=== PATIENT | male | born 1960 | race Caucasian/White ===

== ENCOUNTER → 2018-07-04 15:40 | Outpatient (REF) | payer BC, SELFPAY | LOC: LAB 15:40 | PROVIDERS: Family Provider Family Medicine; Visit Provider Family Medicine | DX: R05 Cough (principal); R50.9 Fever, unspecified | CPT/HCPCS: 87400 ==

== ENCOUNTER → 2018-08-08 09:07 | Outpatient (CLI) | payer BC, SELFPAY ==
--- NOTE | 2018-08-19 15:25 | PM.PFT.1 ---
Pulmonary Function Test Referral & Results Date Patient Seen: 08/08/18 Requesting provider: Jameson Olmedo Indication: Dyspnea upon exertion Results: The spirometry demonstrates an FVC of 3.18 L which is 65% of predicted. The FEV1 was measured at 2.47 L which is 66% of predicted. The FEV1/FVC ratio was 78 which is 102% of predicted. Following the administration of bronchodilator there was at 37% improvement in FEF 25-75%. Lung volumes show an SVC of 3.42 L which is 70% of predicted. The diffusing capacity was measured at 21.24 which is 64% of predicted. No hemoglobin value was provided, so no correction for potential anemia could be made, if appropriate. The maximum voluntary ventilation was normal Interpretation: This study demonstrates moderate obstructive lung disease based our reduction in FEV1. There is some evidence of benefit following bronchodilator based on improvement in FEF 25-75% as above. There is a mild reduction in lung volumes suggesting minimal restrictive lung disease There is also a more notable reduction in diffusing capacity suggesting disease at the capillary alveolar level Compared to PFTs performed in April 2015, current spirometry shows a further decline in lung function with reduction in FEV1 and total lung volumes There is also reduction in diffusing capacity compared to previous study Clinical correlation suggested
== END ==
PROVIDERS: Family Provider Family Medicine; PCP Family Medicine; Visit Provider Family Medicine
DX: R06.00 Dyspnea, unspecified (principal)
CPT/HCPCS: 94060; 94726; 94729

== ENCOUNTER → 2019-01-14 10:44 | Outpatient (CLI) | payer BC, SELFPAY ==
--- NOTE | 2019-01-14 10:47 | DI.RAD.S_ITS ---
PROCEDURE: XR CHEST 2V INDICATIONS: history of pnuemonia TECHNIQUE: 2 views of the chest were acquired. COMPARISON: [facility], CHEST 2 VIEW, 05/14/2016, 15:48. [facility], CHEST 2 VIEW, 05/05/2016, 17:17. FINDINGS: Surgical changes and devices: None. Lungs and pleura: Lungs are clear. No pleural effusions or pneumothorax. Mediastinum: Mediastinal contours are normal. Heart size is normal. Bones and chest wall: No new suspicious bony abnormalities and prominent convex rightward scoliosis is again noted.. Soft tissues appear unremarkable. IMPRESSION: Resolution of prior subpulmonic right pleural effusion present in 2017, no pneumonia or pleural effusion found. Chronic prominent convex right scoliosis again noted, equivalent to the prior studies. Dictated by: Jorge L Ramirez M.D. on 01/14/2019 at 11:19 Approved by: Jorge L Ramirez M.D. on 01/14/2019 at 11:20
== END ==
PROVIDERS: Family Provider Family Medicine; PCP Family Medicine; Visit Provider Nurse Practitioner
DX: M41.9 Scoliosis, unspecified (principal); Z87.01 Personal history of pneumonia (recurrent)
CPT/HCPCS: 71046

== ENCOUNTER → 2019-04-10 12:39 | Outpatient (CLI) | payer BC, SELFPAY ==
--- NOTE | 2019-04-10 | DI.RAD.S_ITS ---
PROCEDURE: XR CHEST 2V INDICATIONS: CHEST PAIN/BACK PAIN TECHNIQUE: 2 views of the chest were acquired. COMPARISON: [facility], CR, XR CHEST 2V, 01/14/2019, 10:45. FINDINGS: Surgical changes and devices: None. Lungs and pleura: Lungs are clear. No pleural effusions or pneumothorax. Mediastinum: Mediastinal contours are normal. Heart size is normal. Bones and chest wall: No suspicious bony abnormalities. Scoliosis and discogenic changes.. Soft tissues appear unremarkable. IMPRESSION: No acute disease or interval change Dictated by: Alexis Sorensen M.D. on 04/10/2019 at 14:12 Approved by: Alexis Sorensen M.D. on 04/10/2019 at 14:12
== END ==
PROVIDERS: Family Provider Family Medicine; PCP Family Medicine; Visit Provider Family Medicine
DX: R07.9 Chest pain, unspecified (principal); M54.9 Dorsalgia, unspecified
CPT/HCPCS: 71046

== ENCOUNTER 2019-08-09 12:48 | Emergency (ER) | payer BC, SELFPAY ==
[2019-08-09 12:59] VITALS: BP 156/79; PULSE 55; RESP 18; TEMP 36.8; O2SAT 98
--- NOTE | 2019-08-09 13:09 | DI.RAD.S_ITS ---
PROCEDURE: XR KNEE LT 3V INDICATIONS: pain, erythema TECHNIQUE: 3 views of the knee were acquired. COMPARISON: None. FINDINGS: Bones: No fractures or dislocations. No suspicious bony lesions. There is a moderate-sized enthesophyte at the quadriceps tendon insertion. Mild degenerative changes of the knee are present. Soft tissues: No joint effusion. No suspicious soft tissue calcifications. Prepatellar soft tissue/skin thickening is evident. IMPRESSION: 1. No acute left knee fractures. 2. Skin thickening in the prepatellar region. 3. No joint effusion. Dictated by: Artur Wilder M.D. on 08/09/2019 at 12:47 Approved by: Artur Wilder M.D. on 08/09/2019 at 12:48
--- NOTE | 2019-08-09 13:17 | ED_ITS ---
HPI - Extremity Injury (Lower) <ZENOBIA Faulkner - Last Filed: 08/09/19 14:39> General Chief Complaint: Extremity Injury, Lower Stated Complaint: left knee swelling since yesturday Time Seen by Provider: 08/09/19 13:00 Source: patient Mode of arrival: Ambulatory Limitations: no limitations History of Present Illness HPI Narrative: The patient is a 59-year-old male nonsmoker with history of chronic pain and scoliosis who presents with a chief complaint of left knee pain. It started yesterday. He states he has been working a lot on his kitchen, so kneeling on the floor for the past several days. He denies any fevers nausea vomiting or diarrhea. He has taken ibuprofen once. He states that his pain ?really isn't that bad.He states that his chronic back pain is much worse. He denies any known injuries. He notes that he has slight redness on his knee yesterday. He states he has full range of motion. He does state that he had to be admitted for IV antibiotics related to a MRSA infection approximately 20 years ago. He states he has taken methadone and hydrocodone so far today for his chronic pain. He has not applied ice to his knee. Related Data Home Medications Medication Instructions Recorded Confirmed fluticasone propionate 1 spray INTRANASAL #0 04/22/16 01/14/19 Respironics BIPAP AutoSV Advanced #1 ea 05/13/18 01/14/19 Previous Rx's Medication Instructions Recorded cephalexin 500 mg PO TID 7 Days #21 cap 08/09/19 doxycycline hyclate 100 mg PO BID #14 tab 08/09/19 Allergies Allergy/AdvReac Type Severity Reaction Status Date / Time bupropion [From WELLBUTRIN] Allergy Mild rash/nausea Unverified 01/14/19 11:13 Uwdmqxi-Ewr-Onf Reductase AdvReac Unknown FLORETNINO Unverified 01/14/19 11:13 Inhibitor HORSES IN [[id number] REDUCTASE LEGS INHIBITOR] Review of Systems <ZENOBIA Faulkner - Last Filed: 08/09/19 14:39> Review of Systems Narrative: GENERAL: Denies chills, fatigue, malaise, fever, sweats. HEENT: Denies sinus pain, ear pain, sore throat, difficulty swallowing, dizziness. RESPIRATORY: Denies dyspnea, cough, wheezing, hemoptysis, sputum. CARDIOVASCULAR: Denies chest pain, palpitations, orthopnea, edema, GASTROINTESTINAL: Denies nausea, vomiting, abdominal pain, diarrhea, constipation, melena. : Denies dysuria, frequency, incontinence, hematuria, urinary retention. MUSCULOSKELETAL: See HPI SKIN: See HPI NEUROLOGIC: Denies weakness, headache, numbness, change in speech, confusion, seizures, incoordination. PSYCHIATRIC: No concerning psychosocial issues. 12 point review of systems is negative except for those stated above Patient History <ZENOBIA Faulkner - Last Filed: 08/09/19 14:39> Medical History Aspiration pneumonia due to gastric secretions (Acute) Chronic pain (Chronic) Obstructive sleep apnea of adult (Chronic) Scoliosis deformity of spine (Chronic) Shortness of breath (Chronic) Snoring (Inactive) Social History marital status: details: raghu Velez, lives in [place] household members: spouse lives independently: Yes caregiver/support person: No housing: house education level: college occupational status: employed current occupational exposures/hazards: Yes (asbestos, silica, other particulates) 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 Normocephalic. No temporal or scalp tenderness. EYES: Pupils equal round and reactive. Extraocular motions intact. No scleral icterus. No injection or drainage. ENT: Nose without bleeding, purulent drainage or septal hematoma. Throat without erythema, tonsillar hypertrophy or exudate. Uvula midline. Airway patent. NECK: Trachea midline. No JVD or lymphadenopathy. Supple, nontender, no meningeal signs. CARDIOVASCULAR: Regular rate and rhythm RESPIRATORY: No cough. No increased respiratory effort. No accessory muscle use. EXTREMITIES: Full range of motion noted left knee. Slight swelling noted prepatellar area with 6 x 6 cm erythema with no palpable bursa or fluctuance. Abrasion noted over prepatellar area of left knee. Positive pedal pulses bilaterally. BACK: Nontender without deformity or crepitance. No flank tenderness. NEURO: AOx3. SKIN: See extremity exam Initial Vital Signs Initial Vital Signs: Vital Signs Temperature 98.3 F 08/09/19 12:59 Pulse Rate 55 L 08/09/19 12:59 Respiratory Rate 18 08/09/19 12:59 Blood Pressure 156/79 H 08/09/19 12:59 Pulse Oximetry 98 08/09/19 12:59 <Raiza Martinez DO - Last Filed: 08/09/19 18:30> Initial Vital Signs Initial Vital Signs: Vital Signs Temperature 98.3 F 08/09/19 12:59 Pulse Rate 55 L 08/09/19 12:59 Respiratory Rate 18 08/09/19 12:59 Blood Pressure 156/79 H 08/09/19 12:59 Pulse Oximetry 98 08/09/19 12:59 Course <ZENOBIA Faulkner - Last Filed: 08/09/19 14:39> Orders Ordered: ED Orders 08/09/19 13:09 XR knee LT 3V Stat Vital Signs Vital signs: Vital Signs - 8 hr 08/09/19 12:59 08/09/19 14:30 Temperature 98.3 F Pulse Rate 55 L 50 L Respiratory Rate 18 12 Blood Pressure 156/79 H 150/76 H Pulse Oximetry 98 100 <Raiza Martinez DO - Last Filed: 08/09/19 18:30> Orders Ordered: ED Orders 08/09/19 13:09 XR knee LT 3V Stat Vital Signs Vital signs: Vital Signs - 8 hr 08/09/19 12:59 08/09/19 14:30 Temperature 98.3 F Pulse Rate 55 L 50 L Respiratory Rate 18 12 Blood Pressure 156/79 H 150/76 H Pulse Oximetry 98 100 MDM - Extremity Injury (Lower) <ZENOBIA Faulkner - Last Filed: 08/09/19 14:39> Differential Diagnosis Differential diagnosis: Likely acute internal derangement of knee and other Imaging Data Extremity x-ray #1: Radiologist's Impression: [address] [place] [id number] XRay Report Signed Patient: Cole Coats [facility]#: [id number] : 1960Acct:[id number] Age/Sex: 59 / MDate of Service: 08/09/19 Loc: ED Accession Number: [id number] Procedure: XR knee LT 3V Ordering Provider: Raiza Mendoza PROCEDURE: XR KNEE LT 3V INDICATIONS: pain, erythema TECHNIQUE: 3 views of the knee were acquired. COMPARISON: None. FINDINGS: Bones: No fractures or dislocations. No suspicious bony lesions. There is a moderate-sized enthesophyte at the quadriceps tendon insertion. Mild degenerative changes of the knee are present. Soft tissues: No joint effusion. No suspicious soft tissue calcifications. Prepatellar soft tissue/skin thickening is evident. IMPRESSION: 1. No acute left knee fractures. 2. Skin thickening in the prepatellar region. 3. No joint effusion. Dictated by: Artur Wilder M.D. on 08/09/2019 at 12:47 Approved by: Artur Wilder M.D. on 08/09/2019 at 12:48 [facility] Narrative Medical decision making narrative: The patient is a 59-year-old male who presents with a chief complaint of knee pain. He has erythema on exam, as well as dry cracked knees. Full range of motion noted on his knee. Will treat for cellulitis at this point time. He is nontoxic., afebrile overall well appearing. Given his MRSA history, will place him on doxycycline as well as cephalexin. Encourage taking it with probiotic or yogurt. Encouraged following up with primary care provider as well as coming back to the emergency department for any acute concerns such as signs of systemic illness. Patient have no questions or concerns upon discharge and state understanding of return precautions as well as follow-up care. Discharge Plan Departure Patient Disposition: Home Clinical Impression: Cellulitis of lower extremity Qualifiers: Laterality: left Qualified Code(s): L03.116 - Cellulitis of left lower limb Discharge Date/Time: 08/09/19 14:31 Instructions: DI for Cellulitis -- Adult, How To Perform RICE (Rest, Ice, Compress, Elevate) Activity Restrictions/Additional Instructions: Thank you for trusting us with your care today. As discussed, your exam and films are concerning for skin infection called cellulitis I sent prescriptions of 2 different antibiotics to [facility]. Please take this with probiotic or yogurt. We are being more aggressive with her antibiotic therapy given your history. Please follow-up with primary care provider in the next few days. Please come back to the emergency department for any acute concerns such as signs of systemic illness including fever etcetera Please use rest ice compression elevation on your knee. I hope you feel better soon. Prescriptions: New doxycycline hyclate 100 mg tablet 100 mg PO BID Qty: 14 RF: 0 cephalexin 500 mg capsule 500 mg PO TID 7 Days Qty: 21 RF: 0 No Action fluticasone propionate 16 GM spray,suspension 1 spray Intranasal Qty: 0 RF: 0 (DME) Respironics BIPAP AutoSV Advanced Qty: 1 RF: 0 Referrals: Jameson Olmedo MD [Primary Care Provider] -
[2019-08-09 14:30] VITALS: BP 150/76; PULSE 50; RESP 12; O2SAT 100
== END 2019-08-09 14:31 | disposition home or self-care (01) ==
PROVIDERS: Emergency Provider Nurse Practitioner Family; Family Provider Family Medicine; PCP Family Medicine
DX: L03.116 Cellulitis of left lower limb (principal)
CPT/HCPCS: 73562; 99283

== ENCOUNTER → 2019-11-25 08:51 | Outpatient (CLI) | payer BC, SELFPAY ==
[2019-11-26 04:10] LABS: COVID19 Sendout Not Detected (Not Detect)
== END ==
PROVIDERS: Family Provider Family Medicine; PCP Family Medicine; Visit Provider Physician Assistant
DX: Z11.59 Encounter for screening for other viral diseases (principal)
CPT/HCPCS: 87635

== ENCOUNTER → 2020-03-01 07:14 | Outpatient (CLI) | payer BC, SELFPAY ==
--- NOTE | 2020-03-01 | DI.MRI.S_ITS ---
PROCEDURE: MR LUMBAR SPINE WO CON INDICATIONS: Low back pain TECHNIQUE: Noncontrast sagittal T1 spin echo and T2 fast echo, sagittal STIR, axial T1 and T2 fast spin echo through the lumbar spine. In cases with scoliosis, additional coronal T2 fast spin echo may be performed. COMPARISON: None. FINDINGS: Image quality: Excellent. Alignment and Curvature: There is prominent levoconvex this lumbar scoliosis, approximately 50?. Bone Marrow: Marrow is of normal overall signal. No acute vertebral body compression fractures. Spinal Cord: Conus medullaris terminates at the L1 level. Visualized cord demonstrates normal signal and size. Paraspinous Soft Tissues: No paravertebral masses. T12-L1: Moderate loss of disc height is seen on the right side. Loss of disc signal is seen. Mild disc bulge is seen, with a central/left disc protrusion. Moderate bilateral neural foraminal narrowing is seen. Mild central canal narrowing is seen. L1-L2: Moderate loss of disc height is seen on the right side. There is loss of disc signal. Mild generalized disc bulge is seen. There is moderate right-sided and mild left-sided facet hypertrophy seen. There is moderate right-sided and no left-sided neural foraminal narrowing seen. Mild central canal narrowing is seen. L2-L3: There is [id number] loss of disc height and disc signal seen on the right side. Moderate disc bulge is seen, which is eccentric to the right side. There is moderate right-sided and mild left-sided facet hypertrophy. There is moderate right-sided and no left-sided neural foraminal narrowing. Moderate central canal narrowing is seen. L3-L4: Moderate loss of disc height is seen on the right side. Moderate generalized disc bulge is seen. Moderate facet joint hypertrophy is seen. Moderate bilateral neural foraminal narrowing is seen. Moderate central canal narrowing is seen. L4-L5: Moderate loss of disc height is seen. Loss of disc signal is seen. Moderate disc bulge is seen, with a central disc protrusion. At least moderate facet hypertrophy is seen. There is moderate to severe bilateral neural foraminal narrowing seen. There is a degree of compression seen upon the exiting nerve roots. Moderate to severe central canal narrowing is seen. L5-S1: The disc height and disc signal are relatively well preserved. Mild generalized disc bulge is seen. Moderate facet joint hypertrophy is seen. There is mild left-sided and no right-sided neural foraminal narrowing seen. No significant central canal narrowing is seen. IMPRESSION: Prominent levoconvex lumbar scoliosis, with multiple levels of degenerative change, which are overall most prominent at L4-5. Dictated by: Matthew Johnson M.D. on 03/01/2020 at 9:19 Approved by: Matthew Johnson M.D. on 03/01/2020 at 9:26
== END ==
PROVIDERS: Family Provider Family Medicine; PCP Family Medicine; Referring Provider Family Medicine; Visit Provider Family Medicine
DX: M54.5 Low back pain (principal); M41.86 Other forms of scoliosis, lumbar region; M47.816 Spondylosis without myelopathy or radiculopathy, lumbar region; M47.817 Spondylosis without myelopathy or radiculopathy, lumbosacral region
CPT/HCPCS: 72148

== ENCOUNTER → 2020-03-10 14:29 | Outpatient (CLI) | payer BC, SELFPAY ==
--- NOTE | 2020-03-10 | DI.RAD.S_ITS ---
PROCEDURE: XR T AND L SPINE 4 TO 5 VIEWS INDICATIONS: scoliosis TECHNIQUE: 2 views acquired of the thoracolumbar spine. COMPARISON: [facility], , T AND L SPINE 2 TO 3 VIEWS, 09/14/2015, 15:56. FINDINGS: Bones: No acute fractures or dislocations. Visualized inferior ribs appear intact. No suspicious bony lesions. Soft tissues: No suspicious soft tissue calcifications. IMPRESSION: Stable appearance of prominent convex leftward scoliosis at the lumbosacral spine and compensatory convex rightward scoliosis at the low thoracic spine, as was previously the case in September of 2015. There has been no appreciable worsening in the degree of scoliosis present. No trauma is found. Estimated convex rightward scoliosis is 55 degrees and convex leftward scoliosis more inferiorly is 36 degrees. Dictated by: Jorge L Ramirez M.D. on 03/10/2020 at 15:51 Approved by: Jorge L Ramirez M.D. on 03/10/2020 at 15:52
== END ==
PROVIDERS: Family Provider Family Medicine; PCP Family Medicine
DX: M41.86 Other forms of scoliosis, lumbar region; M41.84 Other forms of scoliosis, thoracic region
CPT/HCPCS: 72083

== ENCOUNTER → 2020-06-29 14:54 | Outpatient (CLI) | payer BC, SELFPAY ==
[2020-06-29 15:22] LABS: Prothrombin Time 11.5 SECONDS (10.1-12.7)
[2020-06-29 15:25] LABS: PTT Partial Thromboplastin Tim 28 SECONDS (26.4-36.2)
== END ==
PROVIDERS: Family Provider Family Medicine; PCP Family Medicine; Referring Provider Orthopaedic Surgery; Visit Provider Orthopaedic Surgery
DX: M41.9 Scoliosis, unspecified (principal)
CPT/HCPCS: 36415; 85610; 85730

== ENCOUNTER → 2020-08-10 11:19 | Outpatient (CLI) | payer BC, SELFPAY ==
--- NOTE | 2020-08-10 | DI.US.S_ITS ---
PROCEDURE: US PERIPH VENOUS LOW EXTREM LT INDICATIONS: LEFT LEG SWELLING. TECHNIQUE: Real-time imaging, as well as color and pulse Doppler interrogation, were performed of the lower extremity deep veins from the inguinal ligament to the popliteal fossa. COMPARISON: None. FINDINGS: The common femoral, femoral and popliteal veins are normally compressible, and free of intraluminal thrombus. Color and pulse Doppler demonstrate normal phasic intraluminal flow. There is normal augmentation response to distal compression maneuver. IMPRESSION: No evidence of DVT in visualized left lower extremity veins. Dictated by: Kristian Hernandez M.D. on 08/10/2020 at 12:06 Approved by: Kristian Hernandez M.D. on 08/10/2020 at 12:08
== END ==
PROVIDERS: Family Provider Family Medicine; PCP Family Medicine; Referring Provider Family Medicine; Visit Provider Family Medicine
DX: M79.89 Other specified soft tissue disorders (principal)
CPT/HCPCS: 93971

== ENCOUNTER → 2020-09-08 10:23 | Outpatient (CLI) | payer BC, SELFPAY ==
--- NOTE | 2020-09-08 | DI.RAD.S_ITS ---
PROCEDURE: XR T AND L SPINE 4 TO 5 VIEWS INDICATIONS: Other acute postprocedural pain TECHNIQUE: 2 views acquired of the thoracolumbar spine. COMPARISON: [facility], , XR T AND L SPINE 4 TO 5 VIEWS, 03/10/2020, 14:46. FINDINGS: Bones: Postsurgical changes compatible with T3-sacral posterior fusion. Orthopedic hardware is intact. No lucencies at the bone hardware interface. S shaped thoracolumbar spine scoliosis noted with reduced thoracic and lumbar spine curvature is. Soft tissues: No suspicious soft tissue calcifications. IMPRESSION: Status post T3-sacral posterior fusion. Dictated by: Shadia Gallardo MD, PhD on 09/08/2020 at 17:35 Approved by: Shadia Gallardo MD, PhD on 09/08/2020 at 17:43
== END ==
PROVIDERS: Family Provider Family Medicine; PCP Family Medicine; Referring Provider Orthopaedic Surgery; Visit Provider Orthopaedic Surgery
DX: G89.18 Other acute postprocedural pain (principal)
CPT/HCPCS: 72083

== ENCOUNTER → 2020-09-15 15:31 | Outpatient (CLI) | payer BC, SELFPAY ==
--- NOTE | 2020-09-15 15:42 | DI.RAD.S_ITS ---
PROCEDURE: XR T AND L SPINE 4 TO 5 VIEWS INDICATIONS: tripped and fell into a wall hit his back TECHNIQUE: 2 views acquired of the thoracolumbar spine. COMPARISON: [facility], , XR T AND L SPINE 4 TO 5 VIEWS, 09/08/2020, 10:26. FINDINGS: Bones: The patient is status post pedicular screw and grnat fixation of the thoracic, lumbar, and sacral spine. There is residual S-shaped scoliosis of the thoracic spine. No hardware fracture is identified. The right 9th and 10th ribs are fractured. There is increased stool on the right consistent with constipation. The visualized pelvis is intact without fracture. No fractures of the visualized femoral heads. Soft tissues: No suspicious soft tissue calcifications. Status post cholecystectomy. IMPRESSION: 1. Right 9th and 10th rib fractures. 2. Postoperative changes of the thoracic and lumbar spine. 3. Constipation. Dictated by: Matt Lincoln M.D. on 09/15/2020 at 16:31 Approved by: Matt Lincoln M.D. on 09/15/2020 at 16:35
== END ==
PROVIDERS: Family Provider Family Medicine; PCP Family Medicine
DX: S22.41XA Multiple fractures of ribs, right side, initial encounter for closed fracture (principal); M54.16 Radiculopathy, lumbar region; K59.00 Constipation, unspecified; W01.198A Fall on same level from slipping, tripping and stumbling with subsequent striking against other object, initial encounter; Z98.1 Arthrodesis status
CPT/HCPCS: 72083

== ENCOUNTER → 2020-12-13 18:21 | Outpatient (CLI) | payer BC, SELFPAY ==
[2020-12-13 19:37] LABS: COVID19 -Nasal RAPID Negative (Negative)
== END ==
PROVIDERS: Family Provider Family Medicine; PCP Family Medicine; Referring Provider Physician Assistant; Visit Provider Physician Assistant
DX: Z20.822 Contact with and (suspected) exposure to COVID-19 (principal)
CPT/HCPCS: 87635

== ENCOUNTER 2021-01-13 17:30 | Emergency (ER) | payer BC, SELFPAY ==
--- NOTE | 2021-01-13 18:02 | DI.RAD.S_ITS ---
PROCEDURE: XR FINGER RT MIN 2V INDICATIONS: pt got his finger stuck in the lamp shade joiner, 3rd digit TECHNIQUE: AP hand, 2 views of the there finger(s) acquired. COMPARISON: None. FINDINGS: Bones: No fractures or dislocations. No suspicious bony lesions. Soft tissues: No suspicious soft tissue calcifications. IMPRESSION: No acute fracture. No osseous lesion. If symptoms and/or clinical suspicion for pathology persist, further assessment with repeat, or advanced imaging (e.g., CT, MRI, or bone scan) may be helpful for further assessment. Dictated by: Alyssa Tom M.D. on 01/13/2021 at 18:23 Approved by: Alyssa Tom M.D. on 01/13/2021 at 18:24
[2021-01-13 18:03] VITALS: BP 138/88; PULSE 51; RESP 18; TEMP 36.7; O2SAT 97; BMI 22.9
--- NOTE | 2021-01-13 20:51 | ED.WOUNDLAC ---
HPI - Wound/Laceration General Chief Complaint: Wound/Laceration Stated Complaint: Laceration To Rt Middle Finger Time Seen by Provider: 01/13/21 20:44 Source: patient Mode of arrival: Family Vehicle Limitations: no limitations History of Present Illness HPI narrative: Patient is right handed. Injured his right middle finger at the pulp/tip. 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 No nail injury. Needs tetanus shot. Related Data Home Medications Medication Instructions Recorded Confirmed fluticasone propionate 50 1 spray INTRANASAL #0 04/22/16 01/14/19 mcg/actuation nasal spray,suspension Respironics BIPAP AutoSV Advanced #1 ea 05/13/18 01/14/19 Previous Rx's Medication Instructions Recorded doxycycline hyclate 100 mg tablet 100 mg PO BID #14 tab 08/09/19 cephalexin 500 mg capsule 500 mg PO TID #15 cap 01/13/21 Allergies Allergy/AdvReac Type Severity Reaction Status Date / Time bupropion [From WELLBUTRIN] Allergy Mild rash/nausea Verified 01/13/21 18:07 Dilfhhg-Kut-Yny Reductase AdvReac Unknown CHARLEY Verified 01/13/21 18:07 Inhibitor HORSES IN [HGKASXC-WYR-EUJ REDUCTASE LEGS INHIBITOR] Review of Systems Review of Systems Narrative: GENERAL: Denies chills, fatigue, malaise, fever, sweats. HEENT: Denies sinus pain, ear pain, sore throat RESPIRATORY: Denies dyspnea, cough CARDIOVASCULAR: Denies chest pain, palpitations GASTROINTESTINAL: Denies nausea, vomiting, abdominal pain : Denies dysuria, frequency, hematuria MUSCULOSKELETAL: denies muscle or bony pain SKIN: Denies rash, skin lesions, positive for skin injury NEUROLOGIC: Denies weakness, numbness ROS Unobtainable: All systems reviewed & are unremarkable except as noted in HPI and below Patient History Medical History Aspiration pneumonia due to gastric secretions Chronic pain Hiatal hernia Obstructive sleep apnea of adult Scoliosis deformity of spine Shortness of breath Snoring Social History marital status: details: raghu Velez, lives in [place] household members: spouse lives independently: Yes caregiver/support person: No housing: house education level: college occupational status: employed current occupational exposures/hazards: Yes (asbestos, silica, other particulates) 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 EXTREMITIES: No gross deformities. Examination right hand. There is skin avulsion at the pulp of the finger tip. No finger nail injury. Dime size skin injury in diameter. No bone or tendon injury or exposure seen. Based visualize. Bloodless field. No foreign body. Full flexion extension at the MCP PIP and PIP joints. Fingers warm soft and pink. Light touch intact to finger. NEURO: AOx4. SKIN: Warm and dry PSYCH: Not anxious, is cooperative Initial Vital Signs Initial Vital Signs: Vital Signs Temperature 98.0 F 01/13/21 18:03 Pulse Rate 51 L 01/13/21 18:03 Respiratory Rate 18 01/13/21 18:03 Blood Pressure 138/88 01/13/21 18:03 Pulse Oximetry 97 01/13/21 18:03 Course Course Course Narrative: No new issues during course of stay. Orders Ordered: Discontinued Medications Bacitracin (Bacitracin Oint 0.9 Gm Pckt) 1 applic TOP NOW ONE Stop: 01/13/21 20:52 Last Admin: 01/13/21 20:56 Dose: 1 applic Documented by: PAULA Cephalexin HCl (Cephalexin 250 Mg Capsule) 500 mg PO NOW ONE Stop: 01/13/21 20:51 Last Admin: 01/13/21 20:55 Dose: 500 mg Documented by: PAULA Diphtheria/Tetanus/Acell Pertussis (Tet,Diph,Pertuss(Acell),Vac/Pf 0.5 Ml Syringe) 0.5 ml IM .ONCE ONE Stop: 01/13/21 18:12 Last Admin: 01/13/21 20:56 Dose: 0.5 ml Documented by: PAULA Reevaluation(s) Reevaluation #1: Reviewed x-ray results with patient. Agrees with treatment plan. Agrees with tetanus shot. Time: 20:55 Vital Signs Vital signs: Vital Signs - 8 hr 01/13/21 18:03 Temperature 98.0 F Pulse Rate 51 L Respiratory Rate 18 Blood Pressure 138/88 Pulse Oximetry 97 MDM - Wound/Laceration Differential Diagnosis Differential diagnosis: Likely laceration, abrasion and avulsion of skin Imaging Data Extremity x-ray #1: Radiologist's Impression: [address] [address] XRay Report Signed Patient: Cole Coats MR#: [id number] : 1960 Acct:[id number] Age/Sex: 60 / M Date of Service: 01/13/21 Loc: ED Accession Number: [id number] ?? Procedure: XR finger RT min 2V Ordering Provider: Raiza Martinez D.O. PROCEDURE:? XR FINGER RT MIN 2V ? INDICATIONS:? pt got his finger stuck in the tmd teacher assistant, 3rd digit ? TECHNIQUE:? AP hand, 2 views of the there finger(s) acquired.? ? COMPARISON:? None. ? FINDINGS:? ? Bones:? No fractures or dislocations.? No suspicious bony lesions.? ? Soft tissues:? No suspicious soft tissue calcifications.? ? IMPRESSION:? No acute fracture. No osseous lesion. If symptoms and/or clinical suspicion for pathology persist, further assessment with repeat, or advanced imaging (e.g., CT, MRI, or bone scan) may be helpful for further assessment. ? ? Dictated by: Alyssa Tom M.D. on 01/13/2021 at 18:23 ? ? Approved by: Alyssa Tom M.D. on 01/13/2021 at 18:24 ? [facility] Narrative Medical decision making narrative: Appropriate for discharge home. Patient understands no sutures indicated. This is a skin avulsion. Very superficial. Wound care instructions given. Return precautions reviewed. Not toxic at discharge. Neurovascularly intact Discharge Plan Departure Patient Disposition: Home Clinical Impression: Avulsion of skin Instructions: DI for Minor Laceration Activity Restrictions/Additional Instructions: Clean finger wound daily with warm soap and water and then apply thin layer of topical antibiotic. Change dressing daily. See family doctor in a week for recheck. Continue antibiotic prescription filled tomorrow. Return if worsening questions or concerns Prescriptions: New cephalexin 500 mg capsule 500 mg PO TID Qty: 15 RF: 0 No Action fluticasone propionate 16 GM spray,suspension 1 spray Intranasal Qty: 0 RF: 0 doxycycline hyclate 100 mg tablet 100 mg PO BID Qty: 14 RF: 0 (DME) Respironics BIPAP AutoSV Advanced Qty: 1 RF: 0 Referrals: Jameson Olmedo MD [Primary Care Provider] -
[2021-01-13] MEDS: cephALEXin 250 MG CAPSULE 500 MG PO (20:55)
[2021-01-13] MEDS: TET,DIPH,PERTUSS(ACELL),VAC/PF 0.5 ML SYRINGE IM (20:56)
[2021-01-13] MEDS: BACITRACIN OINT 0.9 GM PCKT 1 APPLIC TOP (20:56)
[2021-01-13 21:11] VITALS: PULSE 78; O2SAT 99
== END 2021-01-13 21:11 | disposition home or self-care (01) ==
PROVIDERS: Emergency Provider Emergency Medicine; Family Provider Family Medicine; PCP Family Medicine
DX: S61.212A Laceration without foreign body of right middle finger without damage to nail, initial encounter (principal); W26.8XXA Contact with other sharp object(s), not elsewhere classified, initial encounter; Z23 Encounter for immunization
CPT/HCPCS: 73140; 90471; 99283; 99284; 90715

== ENCOUNTER → 2021-02-09 12:48 | Outpatient (CLI) | payer BC, SELFPAY ==
--- NOTE | 2021-02-09 12:52 | DI.RAD.S_ITS ---
PROCEDURE: XR ABDOMEN 1V INDICATIONS: Abdominal PAIN TECHNIQUE: One view of the abdomen acquired. COMPARISON: None. FINDINGS: Surgical changes and devices: None. Bowel: Moderate stool burden in the ascending through transverse colon. Soft tissues: No suspicious abdominal calcifications. Visualized solid organ contours appear normal in size. Bones: No suspicious bony lesions. Extensive posterior element hardware, most consistent with scoliosis surgery. IMPRESSION: Moderate stool burden in the ascending through transverse colon. Dictated by: Scott Nieto M.D. on 02/09/2021 at 14:54 Approved by: Scott Nieto M.D. on 02/09/2021 at 14:58
== END ==
PROVIDERS: Family Provider Family Medicine; PCP Family Medicine; Referring Provider Family Medicine; Visit Provider Family Medicine
DX: R10.9 Unspecified abdominal pain (principal)
CPT/HCPCS: 74018

== ENCOUNTER → 2021-05-25 12:04 | Outpatient (CLI) | payer BC, SELFPAY ==
--- NOTE | 2021-05-25 | DI.RAD.S_ITS ---
PROCEDURE: XR T AND L SPINE 4 TO 5 VIEWS INDICATIONS: scoliosis TECHNIQUE: 2 views acquired of the thoracolumbar spine. COMPARISON: [facility], CR, XR T AND L SPINE 4 TO 5 VIEWS, 09/08/2020, 10:26. [facility], CR, XR T AND L SPINE 4 TO 5 VIEWS, 09/15/2020, 15:45. FINDINGS: Bones: Extensive posterior fusion from T3 through sacrum is again seen with surgical hardware unchanged from prior study. No acute fractures or dislocations. No gross hardware loosening or failure. Moderate S-shaped scoliosis of thoracolumbar spine is again seen essentially unchanged from prior study. Visualized inferior ribs appear intact. No suspicious bony lesions. Soft tissues: No suspicious soft tissue calcifications. IMPRESSION: Stable moderate S-shaped scoliosis of thoracolumbar spine. Postfusion changes in thoracolumbar spine without gross hardware complication. No acute fracture or dislocation. Dictated by: Kristian Hernandez M.D. on 05/25/2021 at 15:52 Approved by: Kristian Hernandez M.D. on 05/25/2021 at 15:54
== END ==
LOC: LAB 12:07 → RAD 12:07
PROVIDERS: Family Provider Family Medicine; PCP Family Medicine; Referring Provider Physician Assistant; Visit Provider Physician Assistant
DX: M54.16 Radiculopathy, lumbar region (principal); M41.85 Other forms of scoliosis, thoracolumbar region; M21.379 Foot drop, unspecified foot; M51.9 Unspecified thoracic, thoracolumbar and lumbosacral intervertebral disc disorder; Z98.1 Arthrodesis status
CPT/HCPCS: 72083

== ENCOUNTER → 2021-06-12 10:35 | Outpatient (ROUT) | payer BC, SELFPAY ==
[2021-06-12 10:52] LABS: Prothrombin Time 11.2 SECONDS (10.1-12.7)
== END ==
PROVIDERS: Family Provider Family Medicine; PCP Family Medicine; Visit Provider Family Medicine
DX: M54.9 Dorsalgia, unspecified (principal)
CPT/HCPCS: 85610

== ENCOUNTER → 2021-08-12 11:02 | Outpatient (CLI) | payer BC, SELFPAY ==
--- NOTE | 2021-08-12 11:10 | DI.RAD.S_ITS ---
PROCEDURE: XR T AND L SPINE 4 TO 5 VIEWS INDICATIONS: SCOLIOSIS TECHNIQUE: 2 views acquired of the thoracolumbar spine. COMPARISON: [facility], CR, XR T AND L SPINE 4 TO 5 VIEWS, 09/08/2020, 10:26. [facility], CR, XR T AND L SPINE 4 TO 5 VIEWS, 09/15/2020, 15:45. [facility], CR, XR T AND L SPINE 4 TO 5 VIEWS, 05/25/2021, 12:19. FINDINGS: Bones: No acute fractures or dislocations. There is S shaped scoliosis. Extensive postsurgical changes with spinal fusion at T2 through S1. Possible fracture of the left fusion grant at the level of L1. There are, however, motion artifacts at this level. There is mild anterior wedge deformity of T4, unchanged. Fusion of SI joints bilaterally. Visualized inferior ribs appear intact. No suspicious bony lesions. Soft tissues: No suspicious soft tissue calcifications. IMPRESSION: 1. Question of fracture of the left side surgical grant at the level of L1. Because of presence of motion artifacts, the diagnosis is not definitive. Recommend a repeat examination of the lumbar spine if clinically indicated. 2. Severe scoliosis and extensive postsurgical changes in thoracic and lumbar spine. Dictated by: Paige Lu M.D. on 08/12/2021 at 13:26 Approved by: Paige Lu M.D. on 08/12/2021 at 13:36
== END ==
PROVIDERS: Family Provider Family Medicine; PCP Family Medicine; Referring Provider Orthopaedic Surgery; Visit Provider Orthopaedic Surgery
DX: M41.9 Scoliosis, unspecified (principal); Z98.1 Arthrodesis status
CPT/HCPCS: 72083

== ENCOUNTER → 2022-02-20 12:28 | Outpatient (CLI) | payer BC, SELFPAY ==
--- NOTE | 2022-02-20 12:30 | DI.RAD.S_ITS ---
PROCEDURE: XR ACUTE ABDOMEN SERIES INDICATIONS: NAUSEA TECHNIQUE: One view chest and two views of the abdomen were acquired. COMPARISON: None. FINDINGS: Surgical changes and devices: Knwecqie-pzipcx-nyhzjx spine fixation hardware. Cholecystectomy clips. Chest: Lungs are clear. Heart size is normal. No pleural effusions. No pneumoperitoneum. Abdomen: Bowel gas pattern is nonspecific No suspicious calcifications. Visualized solid organ contours appear normal. Bones: No suspicious bony lesions. S shaped scoliosis of the thoracolumbar spine. IMPRESSION: Nonspecific bowel gas pattern without definite evidence of obstruction. If patient's symptoms persist or worsen, consider CT scan of the abdomen pelvis for additional evaluation. Dictated by: Shadia Gallardo MD, PhD on 02/20/2022 at 14:00 Approved by: Shadia Gallardo MD, PhD on 02/20/2022 at 14:01
== END ==
PROVIDERS: Family Provider Family Medicine; PCP Family Medicine; Referring Provider Family Medicine; Visit Provider Family Medicine
DX: R11.0 Nausea
CPT/HCPCS: 74022

== ENCOUNTER → 2022-03-30 13:57 | Outpatient (CLI) | payer BC, SELFPAY ==
--- NOTE | 2022-03-30 13:59 | DI.RAD.S_ITS ---
PROCEDURE: XR LUMBAR SPINE 2-3V INDICATIONS: Back Pain TECHNIQUE: 3 views of the lumbar spine were acquired. COMPARISON: None. FINDINGS: Bones: 5 ffv-qop-etonyza vertebrae are present. Extensive thoracolumbar/lumbosacral fusion hardware with no evidence of hardware failure or loosening. Rotatory levocurvature of the lumbar spine. No vertebral body compression fractures. No suspicious bony lesions. Soft tissues: Overlying bowel gas pattern is normal. No suspicious soft tissue calcifications. IMPRESSION: Expected appearance of extensive orthopedic hardware. No evidence of acute bony abnormality. Dictated by: Saturnino Shirley M.D. on 04/02/2022 at 8:37 Approved by: Saturnino Shirley M.D. on 04/02/2022 at 8:38
== END ==
PROVIDERS: Family Provider Family Medicine; PCP Family Medicine; Referring Provider Family Medicine; Visit Provider Family Medicine
DX: M54.9 Dorsalgia, unspecified (principal); Z98.1 Arthrodesis status
CPT/HCPCS: 72100

== ENCOUNTER → 2022-04-14 14:57 | Outpatient (CLI) | payer BC, SELFPAY ==
--- NOTE | 2022-04-14 14:58 | DI.RAD.S_ITS ---
PROCEDURE: XR CHEST 2V INDICATIONS: Possible aspiration pneumonia TECHNIQUE: 2 views of the chest were acquired. COMPARISON: [facility], CR, XR CHEST 2V, 04/10/2019, 12:39. FINDINGS: Surgical changes and devices: None. Lungs and pleura: Lungs are clear. No pleural effusions or pneumothorax. Mediastinum: Mediastinal contours are normal. Heart size is normal. Bones and chest wall: Convex right thoracic scoliosis present with large posterior grant and screw construct IMPRESSION: No acute cardiopulmonary findings. Instrumented thoracolumbar dextroscoliosis Approved by: Ryan Reid M.D. on 04/14/2022 at 15:31
== END ==
PROVIDERS: Family Provider Family Medicine; PCP Family Medicine; Referring Provider Nurse Practitioner Family; Visit Provider Nurse Practitioner Family
DX: R05.9 Cough, unspecified (principal); M41.9 Scoliosis, unspecified
CPT/HCPCS: 71046

== ENCOUNTER 2022-05-17 17:46 | Inpatient (IN) | payer BC, SELFPAY ==
[2022-05-17] VITALS (21 sets, daily range): BP systolic 75–156; BP diastolic 47–91; PULSE 56–113; RESP 10–22; TEMP 36.4–37.7; O2SAT 77–98; BMI 26.2
--- NOTE | 2022-05-17 | DI.RAD.S_ITS ---
PROCEDURE: XR CHEST 1V INDICATIONS: Aspiration TECHNIQUE: One view of the chest was acquired. COMPARISON: [facility], CR, XR CHEST 2V, 04/14/2022, 15:07. FINDINGS: Surgical changes and devices: Large thoracolumbar grant and screw posterior spinal construct. Lungs and pleura: Left-sided multifocal patchy pulmonary infiltrates. Right lung and pleural space clear Mediastinum: Mediastinal contours appear normal. Heart size is enlarged. Bones and chest wall: No suspicious bony lesions. Overlying soft tissues appear unremarkable. IMPRESSION: Right-sided patchy pulmonary infiltrates, new from the prior Approved by: Ryan Reid M.D. on 05/17/2022 at 16:34
[2022-05-17] MEDS: LACTATED RINGERS 1,000 ML 100 ML IV (12:32)
--- NOTE | 2022-05-17 13:37 | PM.HP.1 ---
History of Present Illness History of Present Illness Date Patient Seen: 05/17/22 Time Patient Seen: 13:37 Chief complaint: SDC Narrative: Cole is a 62-year-old man here for colonoscopy. He believes his last 1 was over 10 years ago and no polyps were found. His grandmother had colon cancer but no first-degree relatives have. Patient History Medical History (Updated 05/17/22 @ 13:38 by Eliseo Kenney MD) Aspiration pneumonia due to gastric secretions Chronic pain Chronic pain syndrome Hiatal hernia Obstructive sleep apnea of adult Scoliosis deformity of spine Shortness of breath Snoring Status post lumbar spinal arthrodesis Surgical History (Updated 08/16/21 @ 10:34 by Jameson Munguia DO) H/O knee surgery History of cholecystectomy History of lumbar fusion Status post thoracic spinal fusion Family & Social History Family History Father Congestive heart failure Liver disease Mother Heart disease Social History: household members spouse lives independently Yes caregiver/support person No Tobacco & Substance use: Smoking Status Never smoker alcohol intake former alcohol intake frequency 0-2 drinks per day Substance Use Type does not use Meds Home Medications and Allergies Home Medications Medication Instructions Recorded Confirmed Type fluticasone propionate 50 1 spray intranasal ##0 04/22/16 08/16/21 History mcg/actuation nasal spray,suspension Respironics BIPAP AutoSV Advanced #1 ea 05/13/18 08/16/21 History duloxetine 60 mg capsule,delayed 60 cap PO 08/16/21 08/16/21 History release gabapentin 300 mg capsule 300 mg PO BID 08/16/21 05/17/22 History hydrochlorothiazide 25 mg tablet 25 mg PO DAILY 08/16/21 05/17/22 History lisinopril 20 mg tablet 20 mg PO DAILY 08/16/21 05/17/22 History methadone 10 mg tablet 20 mg PO DAILY 08/16/21 05/17/22 History omeprazole 20 mg capsule,delayed 20 mg PO DAILY 08/16/21 05/17/22 History release oxycodone 20 mg tablet 20 mg PO BID 08/16/21 05/17/22 History testosterone cypionate 200 mg/mL 200 mg IM QMONTH 08/16/21 05/17/22 History intramuscular oil tizanidine 4 mg tablet 4 mg PO BID 08/16/21 05/17/22 History Allergies Allergy/AdvReac Type Severity Reaction Status Date / Time tamsulosin [From Flomax] Allergy Intermediate Irritable Verified 05/17/22 12:47 bupropion [From WELLBUTRIN] Allergy Mild rash/nausea Verified 05/17/22 12:47 Derbpbi-DEX-KoX Reductase AdvReac Unknown FLORENTINO Verified 05/17/22 12:47 Inhibitor HORSES IN [MVUVGOW-PPX-AOD REDUCTASE LEGS INHIBITOR] Exam Vital Signs (past 8 hours): - 05/17/22 12:32 Temperature 97.8 F Pulse Rate 74 Respiratory Rate 18 Blood Pressure 122/66 Pulse Oximetry 98 Oxygen Delivery Method Room Air Oxygen Delivery Method Room Air Const General: No acute distress Assessment & Plan Assessment and plan (1) Colon cancer screening: Status: Acute Plan 62-year-old man here for colonoscopy for colon cancer screening. We reviewed the risks and benefits of colonoscopy and he would like proceed. Time Spent With Patient Critical Care time: I spent a total of [] minutes of critical care time on this patient's care today; this time is exclusive of procedural time.
--- NOTE | 2022-05-17 14:27 | PM.OP.COLON ---
Operative Date/Time/Diagnoses Date of procedure: 05/17/22 Time of procedure: 14:27 Pre-op diagnosis: Colon cancer screening Post-op diagnosis: same Procedure & Clinicians Study performed: Colonoscopy Same procedure as scheduled: Yes Surgeon: Eliseo Kenney Procedure Notes Procedure in detail: Surgeon: Eliseo Kenney MD Anesthesia: Dr. Brock Procedure: The patient was brought to the endoscopy suite, placed in left lateral decubitus position. The patient was connected to monitoring devices. A time-out was performed. Sedation was administered. Once the patient was adequately sedated, a digital rectal exam was performed and was normal. The scope was then inserted and advanced to the cecum where the appendiceal orifice was identified and photographed. The scope was then slowly withdrawn over greater than 6 minutes. The mucosa was thoroughly inspected. The prep was inadequate to completely clear the colon however we attempt was made to visualize as much as possible. No polyps were seen.. The scope was retroflexed in the rectum. No other abnormalities were seen. The scope was straightened and removed. The patient was awakened and brought to recovery. Scope withdrawal time: 16 minutes Sedation time: 24 minutes EBL: 0 Findings: No polyps but inadequate prep Post-procedure Plan for aftercare: Recommend real attempting another colonoscopy due to the inadequacy of the prep. You may need to take an additional dose of MiraLax prior to the prep and beyond clear liquids for 2 or more days prior to the procedure. Contact [facility] office to arrange another procedure. Disposition: PACU
--- NOTE | 2022-05-17 14:45 | SUR.PHASEI ---
BP low and SpO2 low on arrival to PACU. IVF wide open, phenylephrine given by dr. Brock. mask applied. Moderate amount of yellowish secrections suctioned from mouth.
--- NOTE | 2022-05-17 14:52 | SUR.PHASEI ---
states he has bad acid refulx and it goes into his mouth and chokes on it and it will get in is lungs. states he feels like he has some in his lungs now. States he usually gargles baking soda and water to help at home.
--- NOTE | 2022-05-17 15:05 | SUR.PHASEI ---
Given IS to use. states he has had pneumonia many times from the acid aspiration to his lungs. Using IS to 1200cc
--- NOTE | 2022-05-17 15:19 | SUR.PHASEI ---
sitting at side of bed occasionally using IS. on 5L NC
[2022-05-17] MEDS: ALBUTEROL/IPRATROPIUM 3 ML AMPUL INH (15:39)
--- NOTE | 2022-05-17 15:40 | SUR.PHASEI ---
dr. Castro to bedside, orders rec'd.
--- NOTE | 2022-05-17 16:32 | PM.EVENT ---
Event Note Date Patient Seen: 05/17/22 Time Patient Seen: 16:33 Event Note (Rapid Response, Code, or fall): Patient appeared to have an aspiration event with some mild hypoxia. Will admit for observation and hospitalist consult.
--- NOTE | 2022-05-17 16:33 | SUR.PHASEI ---
Dr. Kenney to bedside. Wants to be admitted. States he does not feel well and it hurts to breathe. He states he is having Nausea too, then he had emesis. CV19 Test performed. Room air sats drop to high 70's and low 80's at rest. placed on 4l NC.
[2022-05-17] MEDS: ONDANSETRON 4 MG/2 ML INJ (16:38)
--- NOTE | 2022-05-17 16:47 | SUR.PHASEI ---
Patient's called to inquire about reason for patient's admission. Explained to that patient had aspirated during procedure and needed to be monitored more closely due to sub-optimal oxygenation status. telling this nurse that patient is on a daily regimen of oxycodone and methadone for his chronic back pain and most likely is going into withdrawal and needs his pain medications. Explained to patient that patient's home medications would be continued and reconciled upon admission and continued. Patient's states that [facility] always fucks things up. Assured that pain medications would be addressed and continued. Notified Dr Kenney of conversation. Dr Kenney states that he vero speak with hospitalist regarding medications. This nurse called [facility] pharmacy to verify home medications.
[2022-05-17 17:14] LABS: COVID19 -Nasal RAPID Negative (Negative)
--- NOTE | 2022-05-17 17:46 | DI.RAD.S_ITS ---
PROCEDURE: XR CHEST 2V INDICATIONS: aspiration TECHNIQUE: 2 views of the chest were acquired. COMPARISON: [facility], CR, XR CHEST 2V, 04/14/2022, 15:07. [facility], CR, XR CHEST 1V, 05/17/2022, 15:24. FINDINGS: Surgical changes and devices: Extensive thoracolumbar fixation hardware can be seen. Cholecystectomy clips are seen. Lungs and pleura: Extensive left-sided infiltrates are seen, which are similar to the study performed earlier in the day. The right lung is relatively clear. No pneumothorax or pleural effusions are seen. Mediastinum: Mediastinal contours are normal. Heart size is normal. Bones and chest wall: No suspicious bony abnormalities. Soft tissues appear unremarkable. IMPRESSION: Extensive left-sided infiltrates are seen, which are consistent with the given history. Dictated by: Matthew Johnson M.D. on 05/17/2022 at 17:14 Approved by: Matthew Johnson M.D. on 05/17/2022 at 17:16
--- NOTE | 2022-05-17 17:49 | SUR.PHASEI ---
to 204 via WC. Tolerated well. made aware of transfer. Belongings with patient.
--- NOTE | 2022-05-17 20:00 | PM.HP.1 ---
History of Present Illness History of Present Illness Date Patient Seen: 05/17/22 Time Patient Seen: 20:01 Date of Onset of Symptoms: 05/17/22 Chief complaint: SDC Narrative: Patient is a 62-year-old male well known to me who I was asked to see for Dr. Kenney for aspiration event. Apparently patient was his usual state of health when he was given an EGD and colonoscopy today. After EGD apparently started coughing and there was concern for an aspiration event. Patient was having difficulty getting air and had new oxygen requirement. He is had no fevers no chills no other changes. No chest pains. Patient has a history of aspiration specifically when his heartburn gets worse. Has had pneumonia in the past associated with this. Review of systems is otherwise negative. Patient has longstanding pain problems with no other changes. Past medical history: Scoliosis with chronic pain. Status post surgery. hypertension new line hyperlipidemia new line hypo gonadal ism new line chronic pain new line depression new line history of hepatitis-C new line esophageal reflux new line Patient History Medical History Aspiration pneumonia due to gastric secretions Chronic pain Chronic pain syndrome Hiatal hernia Obstructive sleep apnea of adult Scoliosis deformity of spine Shortness of breath Snoring Status post lumbar spinal arthrodesis Surgical History H/O knee surgery History of cholecystectomy History of lumbar fusion Status post thoracic spinal fusion Family & Social History Family History Father Congestive heart failure Liver disease Mother Heart disease Social History: household members spouse Prior Living Arrangements House lives independently Yes caregiver/support person No Safety & Behavioral: Feels Safe in Current Yes Environment Been Physically Hurt or No Threatened By a Person Tobacco & Substance use: Smoking Status Never smoker alcohol intake former alcohol intake frequency 0-2 drinks per day Substance Use Type does not use Meds Home Medications and Allergies Home Medications Medication Instructions Recorded Confirmed Type fluticasone propionate 50 1 spray intranasal DAILY ##0 04/22/16 05/17/22 History mcg/actuation nasal spray,suspension Respironics BIPAP AutoSV Advanced #1 ea 05/13/18 05/17/22 History hydrochlorothiazide 25 mg tablet 25 mg PO DAILY 08/16/21 05/17/22 History lisinopril 20 mg tablet 20 mg PO DAILY 08/16/21 05/17/22 History methadone 10 mg tablet 20 mg PO Q8H 08/16/21 05/17/22 History omeprazole 20 mg capsule,delayed 20 mg PO DAILY 08/16/21 05/17/22 History release oxycodone 20 mg tablet 20 mg PO Q6H PRN Pain (Scale Score 08/16/21 05/17/22 History 1-3) testosterone cypionate 200 mg/mL 200 mg IM QMONTH 08/16/21 05/17/22 History intramuscular oil tizanidine 4 mg tablet 4 mg PO BID 08/16/21 05/17/22 History duloxetine 40 mg capsule,delayed 40 mg PO BEDTIME 05/17/22 05/17/22 History release gabapentin 100 mg capsule 200 mg PO TID 05/17/22 05/17/22 History Allergies Allergy/AdvReac Type Severity Reaction Status Date / Time tamsulosin [From Flomax] Allergy Intermediate Irritable Verified 05/17/22 12:47 bupropion [From WELLBUTRIN] Allergy Mild rash/nausea Verified 05/17/22 12:47 [id number] Reductase AdvReac Unknown CHARLEY Verified 05/17/22 12:47 Inhibitor HORSES IN [[id number] REDUCTASE LEGS INHIBITOR] Review of Systems Review of Systems Narrative: See above Exam Vital Signs (past 8 hours): - 05/17/22 12:32 05/17/22 14:28 05/17/22 14:30 Temperature 97.8 F 97.5 F L Pulse Rate 74 88 60 Respiratory Rate 18 10 L 11 L Blood Pressure 122/66 75/47 L 77/53 L Pulse Oximetry 98 77 L 84 L Oxygen Delivery Method Room Air Room Air Simple Mask Oxygen Flow Rate 10 05/17/22 14:35 05/17/22 14:39 05/17/22 14:45 Temperature Pulse Rate 79 77 82 Respiratory Rate 14 17 20 Blood Pressure 107/70 95/60 99/64 Pulse Oximetry 90 L 90 L 89 L Oxygen Delivery Method Simple Mask Simple Mask Simple Mask Oxygen Flow Rate 8 05/17/22 14:48 05/17/22 14:53 05/17/22 15:00 Temperature Pulse Rate 56 L 77 63 Respiratory Rate 20 19 22 Blood Pressure 100/61 117/74 124/72 Pulse Oximetry 89 L 93 90 L Oxygen Delivery Method Simple Mask Simple Mask Simple Mask Oxygen Flow Rate 6 5 5 05/17/22 15:06 05/17/22 15:08 05/17/22 15:13 Temperature Pulse Rate 83 80 89 Respiratory Rate 21 14 21 Blood Pressure 118/82 134/80 134/80 Pulse Oximetry 88 L 85 L 88 L Oxygen Delivery Method Room Air Room Air Nasal Cannula Oxygen Flow Rate 5 05/17/22 15:35 05/17/22 15:49 05/17/22 15:54 Temperature Pulse Rate 84 88 87 Respiratory Rate 20 20 20 Blood Pressure 135/82 126/85 Pulse Oximetry 90 L 92 90 L Oxygen Delivery Method Nasal Cannula Room Air Room Air Oxygen Flow Rate 5 05/17/22 16:23 05/17/22 16:36 05/17/22 16:50 Temperature 98.4 F 98.4 F Pulse Rate 94 H 100 H Respiratory Rate 20 20 Blood Pressure 123/84 138/91 H Pulse Oximetry 97 94 Oxygen Delivery Method Nasal Cannula Nasal Cannula Oxygen Flow Rate 4 4 05/17/22 17:15 05/17/22 18:13 Temperature 97.5 F L Pulse Rate 98 H 101 H Respiratory Rate 20 18 Blood Pressure 130/72 156/86 H Pulse Oximetry 94 98 Oxygen Delivery Method Nasal Cannula Oxygen Flow Rate 4 Oxygen Delivery Method Nasal Cannula Oxygen Flow Rate 4 Narrative Exam Narrative: Alert male with O2 in no acute distress Mucous membranes moist. Neck supple without adenopathy lungs with significant left basilar crackles to about mid lung field right-sided seems normal. No other changes. Abdomen benign extremities normal back with usual scoliosis with large scar going down entire back. Objective Labs Labs: Laboratory Results - last 24 hr 05/17/22 16:32 SARS-CoV-2 (PCR) Negative Assessment & Plan Assessment & Plan narrative: Aspiration. Possible aspiration pneumonia. Patient with history of aspiration which is gone to pneumonia in the past. Would be more aggressive than usual. Will add steroids. Will add Unasyn at this time. And will watch. Patient understands. Questions answered. Hopefully can transfer to [facility] tomorrow and discharge will have to see how he does. My guess is he may not be discharged tomorrow given he has a pretty significant O2 requirement. Respiratory failure acute. Probably secondary to aspiration. Being treated. Will follow. History of reflux. Will place on pantoprazole twice a day. Hypertension. Usual med. Chronic pain. Usual meds. DVT prophylaxis will add Lovenox. Code status full. Disposition. There is a good chance that he may be required to be here more than 24 hours but will see how things go. 40 minutes spent with patient dictating questions with nurses med review orders Time Spent With Patient Critical Care time: I spent a total of [] minutes of critical care time on this patient's care today; this time is exclusive of procedural time. Quality VTE Deep Vein Thrombosis/Pulmonary Embolism Present on Admission: No
[2022-05-17] MEDS: IBUPROFEN 600 MG TABLET PO (21:04)
[2022-05-17] MEDS: AMPICILLIN/SULBACTAM 3 GM 3 GM in SODIUM CHLORIDE 0.9% 100 ML IV (21:07)
[2022-05-17] MEDS: DULOXETINE 20 MG CAPSULE 40 MG PO (21:23)
[2022-05-17] MEDS: OXYCODONE IR 10 MG TABLET 20 MG PO (21:24)
[2022-05-17] MEDS: GABAPENTIN 300 MG CAPSULE PO (21:24)
[2022-05-17] MEDS: MIRTAZAPINE 15 MG TABLET PO (21:26)
[2022-05-17] MEDS: METHADONE 10 MG TABLET 20 MG PO (21:26)
[2022-05-17] MEDS: PANTOPRAZOLE DR 40 MG TABLET PO (21:31)
[2022-05-18] VITALS (7 sets, daily range): BP systolic 113–121; BP diastolic 50–70; PULSE 63–85; RESP 16–17; TEMP 36.5–37.3; O2SAT 93–96
[2022-05-18] MEDS: OXYCODONE IR 10 MG TABLET 20 MG PO ×6 (01:31→23:17)
[2022-05-18] MEDS: AMPICILLIN/SULBACTAM 3 GM 3 GM in SODIUM CHLORIDE 0.9% 100 ML IV ×4 (01:44→19:58)
[2022-05-18] MEDS: PANTOPRAZOLE DR 40 MG TABLET PO ×2 (06:02→20:17)
[2022-05-18 06:46] LABS: Add Manual Diff / Slide Review NO; Basophils Absolute Auto 0 /uL (0-100); Basophils Percent Auto 0.2 % (0-2); Eosinophils Absolute Auto 0 /uL (0-450); Hematocrit 37.3 % (41-53); Hemoglobin 12.1 g/dL (13.5-17.5); Lymphocytes Absolute Auto 500 /uL (1100-4500); Lymphocytes Percent Auto 3.2 % (25-40); Mean Corpuscular HGB Conc 32.4 % (30-36); Mean Corpuscular Volume 80.1 fL (80-100); Monocytes Absolute Auto 500 /uL (0-900); Monocytes Percent Auto 3.3 % (3-14); Neutrophils Absolute Auto 15300 /uL (1500-7000); Neutrophils Percent Auto 93.3 % (50-75); Platelet Count 229 X10^3/uL (150-400); Red Blood Cell Count 4.66 X10^6/uL (4.5-5.9); Red Cell Distribution Width 18.8 % (11.6-14.8); White Blood Cell Count 16.4 X10^3/uL (4.5-11.0)
[2022-05-18 06:53] LABS: Alanine Aminotransferase 20 IU/L (<50); Albumin 3.8 g/dL (3.5-5.0); Albumin Globulin Ratio 1.1 (1.0-2.8); Alkaline Phosphatase 61 U/L (38-126); Aspartate Aminotransferase 27 IU/L (17-59); BUN Creatinine Ratio 19.4 (6-22); Bilirubin Total 0.8 mg/dL (0.2-1.3); Blood Urea Nitrogen 19 mg/dL (9-20); Calcium 8.3 mg/dL (8.4-10.2); Carbon Dioxide 28 mmol/L (22-32); Chloride 94 mmol/L (98-107); Estimated Glomerular Filt Rate > 60 mL/min (>60); Globulin 3.5 g/dL (1.7-4.1); Glucose 142 mg/dL (80-110); HEMOLYSIS 46 (0-50); Potassium 4.9 mmol/L (3.4-5.1); Sodium 132 mmol/L (137-145); Total Protein 7.3 g/dL (6.3-8.2)
[2022-05-18] MEDS: CALCIUM CARBONATE 500 MG TAB PO (07:53)
[2022-05-18] MEDS: MAG HYDROX/ALUM/SIMETH 30 ML UDC PO (07:53)
[2022-05-18] MEDS: hydroCHLOROthiazide 25 MG TABLET PO (08:09)
[2022-05-18] MEDS: lisinopriL 20 MG TABLET PO (08:09)
[2022-05-18] MEDS: GABAPENTIN 300 MG CAPSULE PO ×2 (08:09→20:11)
[2022-05-18] MEDS: METHADONE 10 MG TABLET 20 MG PO ×3 (08:09→20:13)
[2022-05-18] MEDS: ENOXAPARIN 40 MG/0.4 ML SYRINGE SUBCUT (08:10)
--- NOTE | 2022-05-18 13:42 | P.PN_ITS ---
Subjective Subjective Date Patient Seen: 05/18/22 Time Patient Seen: 13:42 Interval history: Patient is feeling better today but still is having difficulty breathing to some extent. Still slight cough. He also had really bad heartburn apparently his proton pump inhibitors were not ordered. Patient is frustrated with the colonoscopy and the fact that he aspirated. He is not having any chest pain He is having loose stools but no blood in his stools He is having no abdominal pain There is no change in his chronic pain Exam Vital Signs (past 8 hours): - 05/18/22 06:00 05/18/22 08:48 05/18/22 07:44 Temperature 97.7 F 98.3 F Pulse Rate 77 67 Respiratory Rate 16 16 Blood Pressure 120/70 116/68 Pulse Oximetry 95 96 Oxygen Delivery Method Nasal Cannula Oxygen Flow Rate 0 0 Oxygen Delivery Method Nasal Cannula Oxygen Flow Rate 0 Narrative Exam Narrative: Afebrile vital signs are stable alert and oriented x3 Neck is supple without adenopathy Chest: Clear to auscultation on the right but left side he has rhonchi crackles really throughout the entire left lung field spent during the upper apices Cor: Regular rate and rhythm Abdomen: Positive bowel sounds, soft, nontender Extremities unremarkable Objective Labs 05/18/22 06:30 05/18/22 06:30 Labs: Laboratory Results - last 24 hr 05/17/22 05/18/22 05/18/22 16:32 06:30 06:30 WBC 16.4 H RBC 4.66 Hgb 12.1 L Hct 37.3 L MCV 80.1 MCH 26.0 MCHC 32.4 RDW 18.8 H Plt Count 229 Neut % (Auto) 93.3 H Lymph % (Auto) 3.2 L [place] % (Auto) 3.3 Eos % (Auto) 0.0 L Baso % (Auto) 0.2 Neut # (Auto) 37277 H Lymph # (Auto) 500 L [place] # (Auto) 500 Eos # (Auto) 0 Baso # (Auto) 0 Sodium 132 L Potassium 4.9 Chloride 94 L Carbon Dioxide 28 BUN 19 Creatinine 0.98 Estimated GFR > 60 BUN/Creatinine Ratio 19.4 Glucose 142 H Calcium 8.3 L Total Bilirubin 0.8 AST 27 ALT 20 Alkaline Phosphatase 61 Total Protein 7.3 Albumin 3.8 Globulin 3.5 Albumin/Globulin Ratio 1.1 SARS-CoV-2 (PCR) Negative [facility] Medical History Aspiration pneumonia due to gastric secretions Chronic pain Chronic pain syndrome Hiatal hernia Obstructive sleep apnea of adult Scoliosis deformity of spine Shortness of breath Snoring Status post lumbar spinal arthrodesis Surgical History H/O knee surgery History of cholecystectomy History of lumbar fusion Status post thoracic spinal fusion Family History Father Congestive heart failure Liver disease Mother Heart disease Social History marital status: details: raghu Velez, lives in [place] household members: spouse lives independently: Yes caregiver/support person: No housing: house education level: college occupational status: employed current occupational exposures/hazards: Yes (asbestos, silica, other particulates) 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 Possible aspiration pneumonia.? Is symptoms seemed to improve but still significant findings on lung auscultation. He still is requiring oxygen. We will continue with IV antibiotics. He will require another 24 hours of hospitalization. Will re-evaluate in a.m.. Will continue with Solu-Medrol 40 mg Q 6. Will repeat labs in a.m.. Respiratory failure acute.? Probably secondary to aspiration.? Being treated.? Will follow.? History of reflux.? Will place on pantoprazole twice a day.? Tums as needed Hypertension.? Stable. Will continue outpatient medications Chronic pain.? Continue outpatient medications DVT prophylaxis will add Lovenox.? 45 minutes spent with patient reviewing chart, discussing with nursing and physicians, formulating a plan and documentation Time Spent With Patient Critical Care time: I spent a total of [] minutes of critical care time on this patient's care today; this time is exclusive of procedural time. Quality VTE Deep Vein Thrombosis/Pulmonary Embolism Present on Admission: No
[2022-05-18] MEDS: DULOXETINE 20 MG CAPSULE 40 MG PO (20:11)
[2022-05-18] MEDS: DOCUSATE 100 MG CAPSULE PO (20:12)
[2022-05-18] MEDS: MIRTAZAPINE 15 MG TABLET PO (20:13)
[2022-05-18] MEDS: SENNOSIDES 8.6 MG TABLET PO (20:14)
[2022-05-18] MEDS: SODIUM CHLORIDE 0.9% FLUSH 10 ML IV (20:14)
[2022-05-19] MEDS: SODIUM CHLORIDE 0.9% FLUSH 10 ML IV ×4 (00:06→08:55)
[2022-05-19 00:14] VITALS: BP 119/65; PULSE 78; RESP 17; TEMP 37.3; O2SAT 93
[2022-05-19] MEDS: IBUPROFEN 600 MG TABLET PO (01:17)
[2022-05-19] MEDS: AMPICILLIN/SULBACTAM 3 GM 3 GM in SODIUM CHLORIDE 0.9% 100 ML IV (01:59)
[2022-05-19] MEDS: OXYCODONE IR 10 MG TABLET 20 MG PO (05:14)
[2022-05-19 05:21] VITALS: BP 112/58; PULSE 62; RESP 15; TEMP 36.3; O2SAT 97
[2022-05-19 05:52] LABS: Add Manual Diff / Slide Review NO; Basophils Absolute Auto 0 /uL (0-100); Basophils Percent Auto 0.2 % (0-2); Eosinophils Absolute Auto 0 /uL (0-450); Hematocrit 34.9 % (41-53); Hemoglobin 11.4 g/dL (13.5-17.5); Lymphocytes Absolute Auto 700 /uL (1100-4500); Mean Corpuscular HGB Conc 32.8 % (30-36); Mean Corpuscular Hemoglobin 26.1 PG (26-34); Mean Corpuscular Volume 79.4 fL (80-100); Monocytes Absolute Auto 800 /uL (0-900); Monocytes Percent Auto 6.2 % (3-14); Neutrophils Absolute Auto 12000 /uL (1500-7000); Neutrophils Percent Auto 88.6 % (50-75); Platelet Count 227 X10^3/uL (150-400); Red Blood Cell Count 4.39 X10^6/uL (4.5-5.9); Red Cell Distribution Width 18.9 % (11.6-14.8); White Blood Cell Count 13.6 X10^3/uL (4.5-11.0)
[2022-05-19 05:59] LABS: BUN Creatinine Ratio 21.8 (6-22); Blood Urea Nitrogen 22 mg/dL (9-20); Calcium 8.4 mg/dL (8.4-10.2); Carbon Dioxide 27 mmol/L (22-32); Chloride 100 mmol/L (98-107); Estimated Glomerular Filt Rate > 60 mL/min (>60); Glucose 143 mg/dL (80-110); HEMOLYSIS < 15 (0-50); Potassium 4.3 mmol/L (3.4-5.1); Sodium 134 mmol/L (137-145)
[2022-05-19] MEDS: PANTOPRAZOLE DR 40 MG TABLET PO (06:35)
[2022-05-19 08:30] VITALS: BP 141/65; PULSE 59; RESP 18; TEMP 36.8; O2SAT 97
[2022-05-19] MEDS: METHADONE 10 MG TABLET 20 MG PO (08:48)
[2022-05-19] MEDS: TIZANIDINE 4 MG TABLET PO (08:53)
[2022-05-19] MEDS: SENNOSIDES 8.6 MG TABLET PO (08:53)
[2022-05-19] MEDS: DOCUSATE 100 MG CAPSULE PO (08:53)
[2022-05-19 08:54] VITALS: BP 141/65
[2022-05-19] MEDS: lisinopriL 20 MG TABLET PO (08:54)
[2022-05-19] MEDS: GABAPENTIN 300 MG CAPSULE PO (08:54)
[2022-05-19] MEDS: hydroCHLOROthiazide 25 MG TABLET PO (08:54)
--- NOTE | 2022-05-19 09:00 | PM.PN.1 ---
Subjective Subjective Date Patient Seen: 05/17/22 Interval history: Patient with slight O2 requirement, NO cough. No hypoxia Exam Vital Signs (past 8 hours): - 05/19/22 05:21 05/19/22 08:30 05/19/22 08:54 Temperature 97.3 F L 98.2 F Pulse Rate 62 59 L Respiratory Rate 15 18 Blood Pressure 112/58 L 141/65 H 141/65 H Pulse Oximetry 97 97 Oxygen Flow Rate 0 Fraction of Inspired Oxygen 21 SaO2/FiO2 Ratio 452 Oxygen Delivery Method Room Air Oxygen Flow Rate 0 Const General: cooperative, healthy appearing and comfortable Nutritional Appearance: average body habitus [facility] Head: normocephalic and atraumatic Eyes General: appearance normal, both eyes and all related structures Neck Neck: trachea midline Chest Chest: normal inspection of the chest Resp Effort & Inspection: normal respiratory effort and able to speak in complete sentences Cardio Rate: regular rate Rhythm: regular rhythm GI Inspection: normal to inspection Skin General: turgor normal Neuro General: patient alert, patient awake and patient oriented x3 Psych Appearance: grossly normal Judgment: judgment good Objective Labs 05/19/22 05:39 05/19/22 05:39 Labs: Laboratory Results - last 24 hr 05/19/22 05/19/22 05:39 05:39 WBC 13.6 H RBC 4.39 L Hgb 11.4 L Hct 34.9 L MCV 79.4 L MCH 26.1 MCHC 32.8 RDW 18.9 H Plt Count 227 Neut % (Auto) 88.6 H Lymph % (Auto) 5.0 L [place] % (Auto) 6.2 Eos % (Auto) 0.0 L Baso % (Auto) 0.2 Neut # (Auto) 74231 H Lymph # (Auto) 700 L [place] # (Auto) 800 Eos # (Auto) 0 Baso # (Auto) 0 Sodium 134 L Potassium 4.3 Chloride 100 Carbon Dioxide 27 BUN 22 H Creatinine 1.01 Estimated GFR > 60 BUN/Creatinine Ratio 21.8 Glucose 143 H Calcium 8.4 PFSH Medical History Aspiration pneumonia due to gastric secretions Chronic pain Chronic pain syndrome Hiatal hernia Obstructive sleep apnea of adult Scoliosis deformity of spine Shortness of breath Snoring Status post lumbar spinal arthrodesis Surgical History H/O knee surgery History of cholecystectomy History of lumbar fusion Status post thoracic spinal fusion Family History Father Congestive heart failure Liver disease Mother Heart disease Social History marital status: details: raghu Velez, lives in [place] household members: spouse lives independently: Yes caregiver/support person: No housing: house education level: college occupational status: employed current occupational exposures/hazards: Yes (asbestos, silica, other particulates) 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 Still requires O2, elevated WBC Plan: continue IV antibiotics and observation for another day. Time Spent With Patient Time with patient: 30 to 49 minutes with 50% spent counseling/coordinating care Critical Care time: I spent a total of [] minutes of critical care time on this patient's care today; this time is exclusive of procedural time. Quality VTE Deep Vein Thrombosis/Pulmonary Embolism Present on Admission: No
--- NOTE | 2022-05-19 10:44 | PM.PN.1 ---
Subjective Subjective Date Patient Seen: 05/19/22 Time Patient Seen: 10:44 Interval history: Ready to go home Exam Vital Signs (past 8 hours): - 05/19/22 05:21 05/19/22 08:30 05/19/22 08:54 Temperature 97.3 F L 98.2 F Pulse Rate 62 59 L Respiratory Rate 15 18 Blood Pressure 112/58 L 141/65 H 141/65 H Pulse Oximetry 97 97 Oxygen Flow Rate 0 Fraction of Inspired Oxygen 21 SaO2/FiO2 Ratio 452 Oxygen Delivery Method Room Air Oxygen Flow Rate 0 Narrative Exam Narrative: No oxygen requirement. No cough or respiratory issues. Objective Labs 05/19/22 05:39 05/19/22 05:39 Labs: Laboratory Results - last 24 hr 05/19/22 05/19/22 05:39 05:39 WBC 13.6 H RBC 4.39 L Hgb 11.4 L Hct 34.9 L MCV 79.4 L MCH 26.1 MCHC 32.8 RDW 18.9 H Plt Count 227 Neut % (Auto) 88.6 H Lymph % (Auto) 5.0 L [place] % (Auto) 6.2 Eos % (Auto) 0.0 L Baso % (Auto) 0.2 Neut # (Auto) 15006 H Lymph # (Auto) 700 L [place] # (Auto) 800 Eos # (Auto) 0 Baso # (Auto) 0 Sodium 134 L Potassium 4.3 Chloride 100 Carbon Dioxide 27 BUN 22 H Creatinine 1.01 Estimated GFR > 60 BUN/Creatinine Ratio 21.8 Glucose 143 H Calcium 8.4 PFSH Medical History Aspiration pneumonia due to gastric secretions Chronic pain Chronic pain syndrome Hiatal hernia Obstructive sleep apnea of adult Scoliosis deformity of spine Shortness of breath Snoring Status post lumbar spinal arthrodesis Surgical History H/O knee surgery History of cholecystectomy History of lumbar fusion Status post thoracic spinal fusion Family History Father Congestive heart failure Liver disease Mother Heart disease Social History marital status: details: raghu Velez, lives in [place] household members: spouse lives independently: Yes caregiver/support person: No housing: house education level: college occupational status: employed current occupational exposures/hazards: Yes (asbestos, silica, other particulates) 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 Quality VTE Deep Vein Thrombosis/Pulmonary Embolism Present on Admission: No
--- NOTE | 2022-05-19 10:47 | P.DS_ITS ---
History of Present Illness History of Present Illness Date Patient Seen: 05/19/22 Time Patient Seen: 10:47 Chief complaint: SDC Narrative: S/p EGD and colonoscopy w aspiration pneumonitis during procedure. Discharge Providers Provider Date of admission: 05/17/22 17:46 Discharge Date: 05/19/22 Primary care physician: Jameson Olmedo MD Discharge provider: Camille Donnelly MD Summary Hospital Course Discharge Diagnosis: Aspirated during EGD and colonoscopy. Hospital Course: Responded to IV antibiotics and pulmonary toilet. Status at Discharge Cognitive/behavioral status at discharge: at baseline, oriented Functional status at discharge: independent ambulation Overall status at discharge: patient is back to baseline Time Spent with Patient Time spent: Greater than 30 minutes Exam Vital Signs (past 8 hours): - 05/19/22 05:21 05/19/22 08:30 05/19/22 08:54 Temperature 97.3 F L 98.2 F Pulse Rate 62 59 L Respiratory Rate 15 18 Blood Pressure 112/58 L 141/65 H 141/65 H Pulse Oximetry 97 97 Oxygen Flow Rate 0 Fraction of Inspired Oxygen 21 SaO2/FiO2 Ratio 452 Oxygen Delivery Method Room Air Oxygen Flow Rate 0 Const General: cooperative and healthy appearing Nutritional Appearance: average body habitus HENMT Head: normocephalic and atraumatic Eyes General: appearance normal, both eyes and all related structures Neck Neck: trachea midline Resp Effort & Inspection: normal respiratory effort and able to speak in complete sentences Cardio Rate: regular rate Rhythm: regular rhythm GI Palpation: soft Skin General: turgor normal Neuro General: patient alert, patient awake and patient oriented x3 Speech: speech normal Extrem General: normal to inspection Psych Appearance: grossly normal Judgment: judgment good Objective Labs 05/19/22 05:39 05/19/22 05:39 Labs: Laboratory Results - last 24 hr 05/19/22 05/19/22 05:39 05:39 WBC 13.6 H RBC 4.39 L Hgb 11.4 L Hct 34.9 L MCV 79.4 L MCH 26.1 MCHC 32.8 RDW 18.9 H Plt Count 227 Neut % (Auto) 88.6 H Lymph % (Auto) 5.0 L [place] % (Auto) 6.2 Eos % (Auto) 0.0 L Baso % (Auto) 0.2 Neut # (Auto) 44275 H Lymph # (Auto) 700 L [place] # (Auto) 800 Eos # (Auto) 0 Baso # (Auto) 0 Sodium 134 L Potassium 4.3 Chloride 100 Carbon Dioxide 27 BUN 22 H Creatinine 1.01 Estimated GFR > 60 BUN/Creatinine Ratio 21.8 Glucose 143 H Calcium 8.4 PFSH Medical History Aspiration pneumonia due to gastric secretions Chronic pain Chronic pain syndrome Hiatal hernia Obstructive sleep apnea of adult Scoliosis deformity of spine Shortness of breath Snoring Status post lumbar spinal arthrodesis Surgical History H/O knee surgery History of cholecystectomy History of lumbar fusion Status post thoracic spinal fusion Family History Father Congestive heart failure Liver disease Mother Heart disease Social History marital status: details: raghu Velez, lives in [place] household members: spouse lives independently: Yes caregiver/support person: No housing: house education level: college occupational status: employed current occupational exposures/hazards: Yes (asbestos, silica, other particulates) 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 Smoking Status: Never smoker alcohol intake: former substance use type: does not use Discharge Assessment & Plan Assessment and Plan Assessment: aspiration during EGD procedure Plan of Treatment: Home with pulmonary toilet and 5 days Augmentin Discharge Plan Discharge Plan Patient Disposition: Home Discharge orders & Medications Prescriptions: New amoxicillin-pot clavulanate 875-125 mg Tablet 1 tab PO BID Qty: 10 0RF Continued fluticasone propionate 16 GM spray,suspension 1 spray Intranasal BEDTIME Qty: 0 duloxetine 40 mg Capsule,Delayed Release(Dr/Ec) 40 mg PO BEDTIME gabapentin 100 mg Capsule 200 mg PO TID lisinopril 20 mg tablet 20 mg PO BID tizanidine 4 mg tablet 4 mg PO BID PRN (Reason: muscle spasms) Label Comments: take 1 tablet by mouth at bedtime if needed for muscle spasm oxycodone 20 mg tablet 20 mg PO Q4HR Label Comments: take 1 tablet by mouth every 4 hours NEEDED FOR PAIN maximum daily dose of 6 methadone 10 mg tablet 20 mg PO Q8H Label Comments: take 1 tablet by mouth q8hr day omeprazole 20 mg capsule,delayed release(DR/EC) 20 mg PO BID hydrochlorothiazide 25 mg tablet 25 mg PO BID testosterone cypionate 200 mg/mL oil 200 mg IM QMONTH (DME) Respironics BIPAP AutoSV Advanced Qty: 1 Dose Instruction: As directed Label Comments: Pressure: 6-15 cmH2O DME: Rx Instructions: As directed Follow up/Referrals: Jameson Olmedo MD [Primary Care Provider] - Diet/Activity/Treatments Diet: Diet as Tolerated Visit Report/Discharge Packet Stand Alone Forms: Colonoscopy Result: [place] [facility] Discharge Data Primary Care Provider: Jameson Olmedo Quality VTE Deep Vein Thrombosis/Pulmonary Embolism Present on Admission: No
--- NOTE | 2022-05-19 10:47 | CM.DPNOTE ---
Discharge Planning Note: Patient sitting up in chair. He is preparing to be discharged today. His spouse on her way. Plan: Discharge per doctor. Spouse to transport. Terri Fournier RN/DCP
--- NOTE | 2022-05-19 11:05 | CM.DPNOTE ---
Discharge Planning Note: Patient to be discharged today. Plan: Discharge per orders. Spouse to transport. Terri Fournier RN/DCP
--- NOTE | 2022-05-19 11:12 | P.PN_ITS ---
Subjective Subjective Date Patient Seen: 05/19/22 Time Patient Seen: 11:13 Interval history: Patient had uneventful night. He did have slight decrease in O2 sats overnight to 89 percentile but continues in the upper 90s on room air and no problems with ambulation. He is coughing up clear fluid with slight pink discharge but no other abnormalities. He denies any abdominal pain or chest pain. Been eating well without difficulty and passing flatus. Dr. Donnelly from general surgery saw him and plan is to discharge him home today. Patient had received steroids throughout hospitalization Exam Vital Signs (past 8 hours): - 05/19/22 05:21 05/19/22 08:30 05/19/22 08:54 Temperature 97.3 F L 98.2 F Pulse Rate 62 59 L Respiratory Rate 15 18 Blood Pressure 112/58 L 141/65 H 141/65 H Pulse Oximetry 97 97 Oxygen Flow Rate 0 Fraction of Inspired Oxygen 21 SaO2/FiO2 Ratio 452 Oxygen Delivery Method Room Air Oxygen Flow Rate 0 Narrative Exam Narrative: Afebrile vital signs are stable Alert and oriented x3 Neck: Supple Chest: Clear to auscultation without wheezes rhonchi or crackles. Left lung field now sounds markedly improved from yesterday. Cor: Regular rate and rhythm without murmur Abdomen: Positive bowel sounds, soft, nontender, nondistended Extremities unremarkable Objective Labs 05/19/22 05:39 05/19/22 05:39 Labs: Laboratory Results - last 24 hr 05/19/22 05/19/22 05:39 05:39 WBC 13.6 H RBC 4.39 L Hgb 11.4 L Hct 34.9 L MCV 79.4 L MCH 26.1 MCHC 32.8 RDW 18.9 H Plt Count 227 Neut % (Auto) 88.6 H Lymph % (Auto) 5.0 L [place] % (Auto) 6.2 Eos % (Auto) 0.0 L Baso % (Auto) 0.2 Neut # (Auto) 11682 H Lymph # (Auto) 700 L [place] # (Auto) 800 Eos # (Auto) 0 Baso # (Auto) 0 Sodium 134 L Potassium 4.3 Chloride 100 Carbon Dioxide 27 BUN 22 H Creatinine 1.01 Estimated GFR > 60 BUN/Creatinine Ratio 21.8 Glucose 143 H Calcium 8.4 PFSH Medical History Aspiration pneumonia due to gastric secretions Chronic pain Chronic pain syndrome Hiatal hernia Obstructive sleep apnea of adult Scoliosis deformity of spine Shortness of breath Snoring Status post lumbar spinal arthrodesis Surgical History H/O knee surgery History of cholecystectomy History of lumbar fusion Status post thoracic spinal fusion Family History Father Congestive heart failure Liver disease Mother Heart disease Social History marital status: details: raghu Velez, lives in [place] household members: spouse lives independently: Yes caregiver/support person: No housing: house education level: college occupational status: employed current occupational exposures/hazards: Yes (asbestos, silica, other particulates) 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 Assessment 1. Acute respiratory failure secondary to aspiration with presumed aspiration pneumonia. Patient received 48 hours of IV Unasyn. He received IV S gino-Medrol and is markedly improved with essentially normal lung exam. Does not have a history of underlying lung problems. He will be discharged home today. He will be discharged home on Augmentin for 5 days. Will not be on any oral steroids. He will continue with sleeping with his bed elevated. He will follow-up with his PCP, Dr. Olmedo this week. We discussed signs symptoms of concern questions answered. Assessment 2. Chronic pain due to severe scoliosis Plan: Follow-up with PCP. No changes Assessment 3. Severe gastroesophageal reflux disease, stable Plan: Continue with outpatient behavioral changes as well as Protonix twice daily. Assessment 4. Hypertension stable Plan: Continue outpatient lisinopril. Time Spent With Patient Critical Care time: I spent a total of [] minutes of critical care time on this patient's care today; this time is exclusive of procedural time. Quality VTE Deep Vein Thrombosis/Pulmonary Embolism Present on Admission: No
== END 2022-05-19 11:36 | disposition home or self-care (01) | DRG 205 ==
PROVIDERS: Family Medicine; Admitting Provider Surgery; Family Provider Family Medicine; PCP Family Medicine; Referring Provider Surgery; Visit Provider Surgery
PROC: 0DJD8ZZ Inspection of Lower Intestinal Tract, Via Natural or Artificial Opening Endoscopic (ICD-10-PCS; CPT 45378; principal; 2022-05-17 13:15)
DX: J95.89 Other postprocedural complications and disorders of respiratory system, not elsewhere classified (principal); J69.0 Pneumonitis due to inhalation of food and vomit; J96.01 Acute respiratory failure with hypoxia; Y83.8 Other surgical procedures as the cause of abnormal reaction of the patient, or of later complication, without mention of misadventure at the time of the procedure; K21.9 Gastro-esophageal reflux disease without esophagitis; I10 Essential (primary) hypertension; E78.5 Hyperlipidemia, unspecified; G89.29 Other chronic pain; F32.A Depression, unspecified; G47.33 Obstructive sleep apnea (adult) (pediatric); Z20.822 Contact with and (suspected) exposure to COVID-19; K44.9 Diaphragmatic hernia without obstruction or gangrene; M41.9 Scoliosis, unspecified; Z86.010 Personal history of colon polyps; Z98.1 Arthrodesis status; Z88.8 Allergy status to other drugs, medicaments and biological substances; Z80.0 Family history of malignant neoplasm of digestive organs; Z82.49 Family history of ischemic heart disease and other diseases of the circulatory system; Z83.79 Family history of other diseases of the digestive system
CPT/HCPCS: 36415; 45378; 71045; 71046; 80048; 80053; 85025; 87635; C9803; J0295; J1650; J2405; J2920

== ENCOUNTER → 2022-11-22 10:27 | Outpatient (CLI) | payer BC, SELFPAY ==
[2022-05-17 17:48] VITALS: BMI 26.2
== END ==
PROVIDERS: Family Provider Family Medicine; PCP Family Medicine; Referring Provider Family Medicine; Visit Provider Family Medicine
DX: R20.0 Anesthesia of skin (principal); R20.2 Paresthesia of skin
CPT/HCPCS: 95886; 95911

== ENCOUNTER → 2022-12-24 09:03 | Outpatient (CLI) | payer BC, SELFPAY ==
[2022-05-17 17:48] VITALS: BMI 26.2
--- NOTE | 2022-12-24 | DI.CT.S_ITS ---
PROCEDURE: CT CERVICAL SPINE WO CON INDICATIONS: NEUROPATHY, CERVICAL TECHNIQUE: Noncontrast 3 mm thick sections acquired from the skull base to the T4 level. Sagittal and coronal reformats were then constructed. For radiation dose reduction, the following was used: automated exposure control, adjustment of mA and/or kV according to patient size. COMPARISON: None. FINDINGS: Image quality: Excellent. Bones: No fractures or dislocations. Straightening of the normal cervical lordosis. No spondylolisthesis. There are multilevel degenerative changes of the cervical spine with facet and uncovertebral arthropathy, disc height loss with degenerative endplate changes and spurring. There is multilevel central canal stenosis, most pronounced at C5-C6 with moderate central canal narrowing. Multilevel osseous neural foraminal narrowing. This is most pronounced at C5-C6 with severe bilateral neural foraminal narrowing. Visualized superior ribs are intact. Partially visualized upper thoracic spine hardware. Soft tissues: Prevertebral soft tissues are normal in thickness. No paravertebral hematomas. No apical pneumothoraces. IMPRESSION: Multilevel degenerative changes of the cervical spine, most pronounced at C5-C6 which results in moderate central canal stenosis and severe bilateral neural foraminal stenosis. Dictated by: Kt Becerra M.D. on 12/24/2022 at 12:10 Approved by: Kt Becerra M.D. on 12/24/2022 at 12:14
== END ==
PROVIDERS: Family Provider Family Medicine; PCP Family Medicine; Referring Provider Family Medicine; Visit Provider Family Medicine
DX: M47.812 Spondylosis without myelopathy or radiculopathy, cervical region (principal); M48.02 Spinal stenosis, cervical region
CPT/HCPCS: 72125

== ENCOUNTER 2023-01-12 09:49 | Emergency (ER) | payer BC, SELFPAY ==
[2022-05-17 17:48] VITALS: BMI 26.2
[2023-01-12 09:55] VITALS: BP 134/75; PULSE 52; RESP 18; TEMP 37; O2SAT 97; BMI 27.3
--- NOTE | 2023-01-12 10:04 | DI.RAD.S_ITS ---
PROCEDURE: XR CHEST 2V INDICATIONS: coughing up blood TECHNIQUE: 2 views of the chest were acquired. COMPARISON: [facility], CR, XR CHEST 1V, 05/17/2022, 15:24. [facility], CR, XR CHEST 2V, 04/14/2022, 15:07. [facility], CR, XR CHEST 2V, 05/17/2022, 17:44. FINDINGS: Surgical changes and devices: Extensive spinal fixation hardware is seen. Cholecystectomy clips are seen. Lungs and pleura: An incomplete inspiratory result is noted, causing a crowded appearance to the lung markings. No focal infiltrates are seen. No pneumothorax or significant pleural effusions are seen. Mediastinum: Mediastinal contours are normal. Heart size is normal. Bones and chest wall: No suspicious bony abnormalities. Age-appropriate bony degenerative changes are seen. Soft tissues appear unremarkable. IMPRESSION: Low lung volumes, without a focal pulmonary abnormality seen. If it would be helpful for clinical management decision making in this patient with this given history, please consider a dedicated chest CT with IV contrast. Postoperative and degenerative changes are seen. Dictated by: Matthew Johnson M.D. on 01/12/2023 at 9:28 Approved by: Matthew Johnson M.D. on 01/12/2023 at 9:29
--- NOTE | 2023-01-12 10:54 | DI.CT.S_ITS ---
PROCEDURE: CT CHEST W CON INDICATIONS: hemoptysis TECHNIQUE: After the administration of intravenous contrast, 5 mm thick sections acquired from the pulmonary apices to the posterior costophrenic angles. 1 mm axial lung, 5 mm thick coronal and sagittal reformats and 7 mm axial MIP were acquired. For radiation dose reduction, the following was used: automated exposure control, adjustment of mA and/or kV according to patient size. COMPARISON: [facility], CT, PE STUDY (CTA CHEST), 05/05/2016, 17:39. [facility], CR, XR CHEST 2V, 01/12/2023, 10:06. [facility], CT, CHEST ABDOMEN WITH CONTRAST, 07/22/2008, 9:16. FINDINGS: Image quality: There is artifact associated with the metallic hardware. Artifact from the metallic hardware is reduced by metal reconstruction algorithm. Lungs and pleura: No acute air space opacities. There is a mild degree of atelectasis seen involving the left lower lobe. No pleural effusions or pneumothorax. Central and peripheral airways are patent and normal in caliber. Mediastinum: Heart size is normal. No pericardial effusion. No mediastinal or hilar adenopathy by size criteria. Thoracic aorta and central pulmonary arteries are normal in size. Esophagus is normal in caliber. There is a moderate hiatal hernia. Hyperdense material can be seen within the hiatal hernia, as on series 3, image 47. Bones and chest wall: No suspicious bony lesions. No vertebral body compression fractures. Extensive spinal fixation hardware can be seen. Bone grafting material is noted. Moderate to prominent dextroconvex scoliotic curvature is seen. No axillary or supraclavicular adenopathy by size criteria. Thyroid gland demonstrates no significant abnormality. Incidental note is made of bilateral gynecomastia. Abdomen: Cholecystectomy clips are seen. Visualized upper abdominal solid organs appear normal. Upper abdominal bowel loops are normal in caliber. IMPRESSION: No focal pulmonary abnormality is seen. There is a moderate hiatal hernia seen. Hyperdense material can be seen within the hiatal hernia, which may be related to hemorrhage. - If clinically appropriate, please consider a follow-up upper endoscopy for further evaluation. Additional findings: Extensive spinal fixation hardware Moderate to prominent dextroconvex scoliosis Gynecomastia Cholecystectomy Dictated by: Matthew Johnson M.D. on 01/12/2023 at 10:49 Approved by: Matthew Johnson M.D. on 01/12/2023 at 10:53
--- NOTE | 2023-01-12 10:55 | ED.GENADULT ---
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 Initially was coughing about 2 weeks ago saw his primary care physician who started him on amoxicillin for a clinically diagnosed pneumonia. 24 hours after that he had 2 days of mild hemoptysis. Seven days ago he had some dental extractions and is having a bit of bleeding from those dental sites and has been taking a bit more ibuprofen secondary to dental pain. He has not had black stools or any vomiting. Over the last 24 hours he is having increasing hemoptysis with some clots. Also notices increasing dyspnea. No overt chest pain. No palpitations. He describes no fevers and no abdominal pain Related Data Home Medications Medication Instructions Recorded Confirmed fluticasone propionate 50 1 spray intranasal BEDTIME ##0 04/22/16 05/17/22 mcg/actuation nasal spray,suspension Respironics BIPAP AutoSV Advanced #1 ea 05/13/18 05/17/22 hydrochlorothiazide 25 mg tablet 25 mg PO BID 08/16/21 05/17/22 lisinopril 20 mg tablet 20 mg PO BID 08/16/21 05/17/22 methadone 10 mg tablet 20 mg PO Q8H 08/16/21 05/17/22 omeprazole 20 mg capsule,delayed 20 mg PO BID 08/16/21 05/17/22 release oxycodone 20 mg tablet 20 mg PO Q4HR 08/16/21 05/17/22 testosterone cypionate 200 mg/mL 200 mg IM QMONTH 08/16/21 05/17/22 intramuscular oil tizanidine 4 mg tablet 4 mg PO BID PRN muscle spasms 08/16/21 05/17/22 duloxetine 40 mg capsule,delayed 40 mg PO BEDTIME 05/17/22 05/17/22 release gabapentin 100 mg capsule 200 mg PO TID 05/17/22 05/17/22 Previous Rx's Medication Instructions Recorded amoxicillin 875 mg-potassium 1 tab PO BID #10 tabs 05/19/22 clavulanate 125 mg tablet Allergies Allergy/AdvReac Type Severity Reaction Status Date / Time tamsulosin [From Flomax] Allergy Intermediate Irritable Verified 01/12/23 10:02 bupropion [From WELLBUTRIN] Allergy Mild rash/nausea Verified 01/12/23 10:02 [id number] Reductase AdvReac Unknown FLORENTINO Verified 01/12/23 10:02 Inhibitor HORSES IN [[id number] REDUCTASE LEGS INHIBITOR] Review of Systems Review of Systems Narrative: Pertinent positive and negative findings as per HPI Patient History Medical History Chronic pain syndrome Status post lumbar spinal arthrodesis Hiatal hernia Shortness of breath Chronic pain Aspiration pneumonia due to gastric secretions Obstructive sleep apnea of adult Snoring Scoliosis deformity of spine Surgical History Status post thoracic spinal fusion H/O knee surgery History of cholecystectomy History of lumbar fusion Family History Father Congestive heart failure Liver disease Mother Heart disease Social History marital status: details: raghu Velez, lives in [place] household members: spouse lives independently: Yes caregiver/support person: No housing: house education level: college occupational status: employed current occupational exposures/hazards: Yes (asbestos, silica, other particulates) 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 Able to give a complete and coherent history. Well-nourished well-developed HEENT: Moist mucous membranes, normal sclera with reactive pupils, Neck: No cervical adenopathy, supple Respiratory: Lungs are clear to auscultation, no wheezing no rales no rhonchi. Full and symmetrical air movement Cardiac: Regular rate and rhythm no murmurs no bruits Abdomen: Soft, nontender, good bowel tones, no flank pain Skin: Warm and dry, no rashes Neurologic: Grossly neurologically intact with no obvious asymmetries or abnormalities Extremities: No trauma, well perfused Psych: Cooperative, appropriate insight and affect Course Orders Ordered: ED Orders 01/12/23 10:04 XR chest 2V Stat 01/12/23 10:54 CT chest w con Stat 01/12/23 11:15 Complete Blood Count AUTO DIFF Stat Comprehensive Metabolic Panel Stat Vital Signs Vital signs: Vital Signs - 8 hr 01/12/23 09:55 01/12/23 12:19 Temperature 98.6 F Pulse Rate 52 L 54 L Respiratory Rate 18 Blood Pressure 134/75 126/78 Pulse Oximetry 97 96 Oxygen Delivery Method Room Air Room Air Medical Decision Making Lab Data 01/12/23 11:15 01/12/23 11:15 Labs: Lab Results 01/12/23 Range/Units 11:15 WBC 3.9 L (4.5-11.0) X10^3/uL RBC 4.54 (4.5-5.9) X10^6/uL Hgb 12.1 L (13.5-17.5) g/dL Hct 36.0 L (41-53) % MCV 79.3 L (80-100) fL MCH 26.7 (26-34) PG MCHC 33.7 (30-36) % RDW 18.3 H (11.6-14.8) % Plt Count 221 (150-400) X10^3/uL Neut % (Auto) 58.0 (50-75) % Lymph % (Auto) 23.7 L (25-40) % [place] % (Auto) 14.2 H (3-14) % Eos % (Auto) 3.5 (2-4) % Baso % (Auto) 0.6 (0-2) % Neut # (Auto) 2300 (9494-7377) /uL Lymph # (Auto) 900 L (2935-0691) /uL [place] # (Auto) 600 (0-900) /uL Eos # (Auto) 100 (0-450) /uL Baso # (Auto) 0 (0-100) /uL Sodium 132 L (137-145) mmol/L Potassium 3.4 (3.4-5.1) mmol/L Chloride 93 L (98-107) mmol/L Carbon Dioxide 32 (22-32) mmol/L BUN 14 (9-20) mg/dL Creatinine 0.87 (0.66-1.25) mg/dL Estimated GFR > 60 (>60) mL/min BUN/Creatinine Ratio 16.1 (6-22) Glucose 104 (80-110) mg/dL Calcium 9.4 (8.4-10.2) mg/dL Total Bilirubin 0.6 (0.2-1.3) mg/dL AST 24 (17-59) IU/L ALT 15 (<50) IU/L Alkaline Phosphatase 62 (38-126) U/L Total Protein 8.5 H (6.3-8.2) g/dL Albumin 4.3 (3.5-5.0) g/dL Globulin 4.2 H (1.7-4.1) g/dL Albumin/Globulin Ratio 1.0 (1.0-2.8) MDM Narrative Medical decision making narrative: CC: 62-year-old gentleman now with 2 episodes of hemoptysis in the last 2 weeks. He has been treated with Augmentin. Did have some recent dental work done with still some bleeding from dental sites Data collected from: patient, Medical records reviewed: Hospital admission after colonoscopy in mild complication from May of this year is reviewed Differential considered: Pneumonia, cancer, blood from the oropharynx Exam documented above, pertinent findings include: Benign exam and lungs are clear Lab Test results independently reviewed as above. Pertinent findings: CBC shows mild leukopenia with white count at 3.9, stable chronic anemia, platelets are appropriate Chemistries are relatively reassuring Imaging studies independently reviewed: CT scan of the chest shows no acute airspace opacities. Mediastinum does not suggest significant abnormality beyond the hiatal hernia. No tumors are appreciated Chest x-ray shows no focal pulmonary abnormality Discussion: 62-year-old gentleman with [address] scan is unremarkable. He is currently almost done with a 2 week course of Augmentin for clinically diagnosed pneumonia. There is no significant pathology identified on CT scan. Reassurance is given did ask that he complete the course of antibiotics and follow up with his primary care doctor regarding the hemoptysis. Discharge Plan Departure Patient Disposition: Home Clinical Impression: Cough with hemoptysis Instructions: DI for Hemoptysis Activity Restrictions/Additional Instructions: Thank you for coming in today The CT scan of your chest was very reassuring. I do not see any consolidated pneumonia and I do not see any obvious masses or tumors. Please do continue the course of antibiotics to completion. Please do follow-up with your primary care doctor in about 2 weeks. If the hemoptysis continues you may need referral to a customer management specialist. Prescriptions: No Action fluticasone propionate 16 GM spray,suspension 1 spray Intranasal BEDTIME Qty: 0 duloxetine 40 mg Capsule,Delayed Release(Dr/Ec) 40 mg PO BEDTIME gabapentin 100 mg Capsule 200 mg PO TID amoxicillin-pot clavulanate 875-125 mg Tablet 1 tab PO BID Qty: 10 0RF lisinopril 20 mg tablet 20 mg PO BID tizanidine 4 mg tablet 4 mg PO BID PRN (Reason: muscle spasms) Patient Comments: take 1 tablet by mouth at bedtime if needed for muscle spasm oxycodone 20 mg tablet 20 mg PO Q4HR Patient Comments: take 1 tablet by mouth every 4 hours NEEDED FOR PAIN maximum daily dose of 6 methadone 10 mg tablet 20 mg PO Q8H Patient Comments: take 1 tablet by mouth q8hr day omeprazole 20 mg capsule,delayed release(DR/EC) 20 mg PO BID hydrochlorothiazide 25 mg tablet 25 mg PO BID testosterone cypionate 200 mg/mL oil 200 mg IM QMONTH (DME) Respironics BIPAP AutoSV Advanced Qty: 1 Dose Instruction: As directed Patient Comments: Pressure: 6-15 cmH2O DME: Rx Instructions: As directed Referrals: Jameson Olmedo MD [Primary Care Provider] - Stand Alone Forms: Patient Portal/API
[2023-01-12 11:30] LABS: Add Manual Diff / Slide Review NO; Basophils Absolute Auto 0 /uL (0-100); Basophils Percent Auto 0.6 % (0-2); Eosinophils Absolute Auto 100 /uL (0-450); Eosinophils Percent Auto 3.5 % (2-4); Hemoglobin 12.1 g/dL (13.5-17.5); Lymphocytes Absolute Auto 900 /uL (1100-4500); Lymphocytes Percent Auto 23.7 % (25-40); Mean Corpuscular HGB Conc 33.7 % (30-36); Mean Corpuscular Hemoglobin 26.7 PG (26-34); Mean Corpuscular Volume 79.3 fL (80-100); Monocytes Absolute Auto 600 /uL (0-900); Monocytes Percent Auto 14.2 % (3-14); Neutrophils Absolute Auto 2300 /uL (1500-7000); Platelet Count 221 X10^3/uL (150-400); Red Blood Cell Count 4.54 X10^6/uL (4.5-5.9); Red Cell Distribution Width 18.3 % (11.6-14.8); White Blood Cell Count 3.9 X10^3/uL (4.5-11.0)
[2023-01-12 11:41] LABS: Alanine Aminotransferase 15 IU/L (<50); Albumin 4.3 g/dL (3.5-5.0); Alkaline Phosphatase 62 U/L (38-126); Aspartate Aminotransferase 24 IU/L (17-59); BUN Creatinine Ratio 16.1 (6-22); Bilirubin Total 0.6 mg/dL (0.2-1.3); Blood Urea Nitrogen 14 mg/dL (9-20); Calcium 9.4 mg/dL (8.4-10.2); Carbon Dioxide 32 mmol/L (22-32); Chloride 93 mmol/L (98-107); Estimated Glomerular Filt Rate > 60 mL/min (>60); Globulin 4.2 g/dL (1.7-4.1); Glucose 104 mg/dL (80-110); HEMOLYSIS 17 (0-50); Potassium 3.4 mmol/L (3.4-5.1); Sodium 132 mmol/L (137-145); Total Protein 8.5 g/dL (6.3-8.2)
[2023-01-12 12:19] VITALS: BP 126/78; PULSE 54; O2SAT 96
== END 2023-01-12 13:42 | disposition home or self-care (01) ==
PROVIDERS: Emergency Provider Emergency Medicine; Family Provider Family Medicine; PCP Family Medicine
DX: R04.2 Hemoptysis (principal); R05.9 Cough, unspecified
CPT/HCPCS: 36415; 71046; 71260; 80053; 85025; 99284; Q9967

== ENCOUNTER 2023-03-07 10:18 | Emergency (ER) | payer BC, SELFPAY ==
[2022-05-17 17:48] VITALS: BMI 26.2
[2023-03-07] VITALS (10 sets, daily range): BP systolic 107–133; BP diastolic 55–81; PULSE 54–70; RESP 14–23; TEMP 37.8; O2SAT 91–94; BMI 25.8
--- NOTE | 2023-03-07 10:40 | DI.RAD.S_ITS ---
PROCEDURE: XR CHEST 1V INDICATIONS: dyspnea, cough, fever TECHNIQUE: One view of the chest was acquired. COMPARISON: [facility], CT, CT CHEST W CON, 01/12/2023, 11:27. [facility], CR, XR CHEST 2V, 01/12/2023, 10:06. FINDINGS: Surgical changes and devices: Bilateral Vega rods Lungs and pleura: Lungs are clear. No pleural effusions or pneumothorax. Mediastinum: Mediastinal contours appear normal. Heart size is normal. Bones and chest wall: No suspicious bony lesions. Thoracolumbar scoliotic curvature, Vega rods period Overlying soft tissues appear unremarkable. IMPRESSION: No evidence acute pulmonary process. Dictated by: Saturnino Shirley M.D. on 03/07/2023 at 12:03 Approved by: Saturnino Shirley M.D. on 03/07/2023 at 12:04
[2023-03-07] MEDS: ACETAMINOPHEN 325 MG TABLET 975 MG PO (10:52)
[2023-03-07 10:58] LABS: Add Manual Diff / Slide Review NO; Basophils Absolute Auto 0 /uL (0-100); Basophils Percent Auto 0.2 % (0-2); Eosinophils Absolute Auto 0 /uL (0-450); Hematocrit 38.7 % (41-53); Hemoglobin 12.7 g/dL (13.5-17.5); Lymphocytes Absolute Auto 300 /uL (1100-4500); Mean Corpuscular HGB Conc 32.9 % (30-36); Mean Corpuscular Hemoglobin 26.8 PG (26-34); Mean Corpuscular Volume 81.4 fL (80-100); Monocytes Absolute Auto 500 /uL (0-900); Monocytes Percent Auto 4.3 % (3-14); Neutrophils Absolute Auto 10500 /uL (1500-7000); Neutrophils Percent Auto 92.5 % (50-75); Platelet Count 221 X10^3/uL (150-400); Red Blood Cell Count 4.75 X10^6/uL (4.5-5.9); Red Cell Distribution Width 17.2 % (11.6-14.8); White Blood Cell Count 11.3 X10^3/uL (4.5-11.0)
--- NOTE | 2023-03-07 10:58 | ED.GENADULT ---
HPI - General Adult General Chief complaint: Shortness of Breath/Dyspnea Stated complaint: fever 102.2/ SOB Time Seen by Provider: 03/07/23 10:32 Source: patient Mode of arrival: Ambulatory History of Present Illness HPI narrative: 62-year-old male with history of COPD, scoliosis, hiatal hernia presents for shortness of breath and fever. Patient states that yesterday he was working in a [employer] environment and not wearing a protective mask. In the middle of the night he woke up and thought that he may have aspirated from his hiatal hernia. He states that when this happens he usually gets very sick and has to have antibiotics. He had leftover amoxicillin from a dental infection and took 1000 mg of amoxicillin prior to arrival as well as 400 mg of ibuprofen. Related Data Home Medications Medication Instructions Recorded Confirmed fluticasone propionate 50 1 spray intranasal BEDTIME ##0 04/22/16 05/17/22 mcg/actuation nasal spray,suspension Respironics BIPAP AutoSV Advanced #1 ea 05/13/18 05/17/22 hydrochlorothiazide 25 mg tablet 25 mg PO BID 08/16/21 05/17/22 lisinopril 20 mg tablet 20 mg PO BID 08/16/21 05/17/22 methadone 10 mg tablet 20 mg PO Q8H 08/16/21 05/17/22 omeprazole 20 mg capsule,delayed 20 mg PO BID 08/16/21 05/17/22 release oxycodone 20 mg tablet 20 mg PO Q4HR 08/16/21 05/17/22 testosterone cypionate 200 mg/mL 200 mg IM QMONTH 08/16/21 05/17/22 intramuscular oil tizanidine 4 mg tablet 4 mg PO BID PRN muscle spasms 08/16/21 05/17/22 duloxetine 40 mg capsule,delayed 40 mg PO BEDTIME 05/17/22 05/17/22 release gabapentin 100 mg capsule 200 mg PO TID 05/17/22 05/17/22 Previous Rx's Medication Instructions Recorded amoxicillin 875 mg-potassium 1 tab PO BID #10 tabs 05/19/22 clavulanate 125 mg tablet amoxicillin 875 mg-potassium 1 tab PO Q12H #14 tabs 03/07/23 clavulanate 125 mg tablet Allergies Allergy/AdvReac Type Severity Reaction Status Date / Time tamsulosin [From Flomax] Allergy Intermediate Irritable Verified 01/12/23 10:02 bupropion [From WELLBUTRIN] Allergy Mild rash/nausea Verified 01/12/23 10:02 [id number]-GAG-[id number] Reductase AdvReac Unknown CASSIUSLEY Verified 01/12/23 10:02 Inhibitor HORSES IN [IZEHAOO-DMW-PMG REDUCTASE LEGS INHIBITOR] Review of Systems Review of Systems Narrative: Negative except as noted above Patient History Medical History Chronic pain syndrome Status post lumbar spinal arthrodesis Hiatal hernia Shortness of breath Chronic pain Aspiration pneumonia due to gastric secretions Obstructive sleep apnea of adult Snoring Scoliosis deformity of spine Surgical History Status post thoracic spinal fusion H/O knee surgery History of cholecystectomy History of lumbar fusion Family History Father Congestive heart failure Liver disease Mother Heart disease Social History marital status: details: raghu Velez, lives in [place] household members: spouse lives independently: Yes caregiver/support person: No housing: house education level: college occupational status: employed current occupational exposures/hazards: Yes (asbestos, silica, other particulates) 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 Smoking Status: Former smoker alcohol intake: former substance use type: does not use Smoking Status: Former smoker tobacco type: cigarettes alcohol intake frequency: 0-2 drinks per day Substance Use Type: does not use Exam Initial Vital Signs Initial Vital Signs: Vital Signs Blood Pressure 133/81 03/07/23 10:38 Pulse Oximetry 93 03/07/23 10:38 Const: Awake, alert, no acute distress, nontoxic appearing Eyes: PERRL, EOMI, conjunctiva normal ENT: Atraumatic, dentition normal, mucous membranes moist Cardiac: regular rate, regular rhythm RESP: unlabored, clear bilaterally, no wheezing GI: Atraumatic, soft, nontender, nondistended, no rebound, no guarding MSK: Atraumatic, full range of motion, pulses equal Skin: Warm, Dry, intact, no rashes Neuro: AO x3, CN II-XII grossly intact, moves all extremities Psych: affect normal, mood normal, not suicidal, not homicidal Course Orders Ordered: ED Orders 03/07/23 10:40 Chest [XR chest 1V] Stat 03/07/23 10:47 CBC Auto Diff [Complete Blood Count AUTO DIFF] Stat CMP [Comprehensive Metabolic Panel] Stat Procalcitonin Stat 03/07/23 10:50 Respiratory Panel (Film Array) Stat 03/07/23 11:00 Blood Culture Stat 03/07/23 12:17 CT chest wo con Stat Discontinued Medications Acetaminophen (Acetaminophen 325 Mg Tablet) 975 mg PO NOW ONE Stop: 03/07/23 10:43 Last Admin: 03/07/23 10:52 Dose: 975 mg Documented By: RB Sodium Chloride (Normal Saline 0.9%) 1,000 mls @ 1,000 mls/hr IV BOLUS ONE Stop: 03/07/23 12:00 Last Infusion: 03/07/23 12:31 Dose: Infused Documented By: Admin: 03/07/23 11:17 Dose: 1,000 mls/hr Documented By: MAGDIEL Vital Signs Vital signs: Vital Signs - 8 hr 03/07/23 10:38 03/07/23 10:38 03/07/23 10:41 Temperature 100.1 F H Pulse Rate 70 Respiratory Rate 14 Blood Pressure 133/81 133/81 Pulse Oximetry 93 92 Oxygen Delivery Method Room Air 03/07/23 10:52 03/07/23 11:00 03/07/23 11:01 Temperature 100.1 F H Pulse Rate 69 Respiratory Rate 23 Blood Pressure 110/60 Pulse Oximetry Oxygen Delivery Method 03/07/23 11:01 03/07/23 11:30 03/07/23 11:30 Temperature Pulse Rate 69 64 Respiratory Rate 21 Blood Pressure 115/60 Pulse Oximetry 91 Oxygen Delivery Method 03/07/23 12:00 03/07/23 12:00 03/07/23 12:30 Temperature Pulse Rate 56 L 58 L Respiratory Rate Blood Pressure 112/59 L Pulse Oximetry 93 94 Oxygen Delivery Method 03/07/23 12:31 03/07/23 12:31 03/07/23 13:00 Temperature Pulse Rate 57 L 54 L Respiratory Rate Blood Pressure 107/55 L Pulse Oximetry 93 93 Oxygen Delivery Method Room Air 03/07/23 13:00 Temperature Pulse Rate Respiratory Rate Blood Pressure 107/55 L Pulse Oximetry Oxygen Delivery Method Medical Decision Making Differential Diagnosis Differential Diagnosis: COPD exacerbation, aspiration pneumonia, community-acquired pneumonia Lab Data 03/07/23 10:47 03/07/23 10:47 Labs: Lab Results 03/07/23 03/07/23 Range/Units 10:47 10:50 WBC 11.3 H (4.5-11.0) X10^3/uL RBC 4.75 (4.5-5.9) X10^6/uL Hgb 12.7 L (13.5-17.5) g/dL Hct 38.7 L (41-53) % MCV 81.4 (80-100) fL MCH 26.8 (26-34) PG MCHC 32.9 (30-36) % RDW 17.2 H (11.6-14.8) % Plt Count 221 (150-400) X10^3/uL Neut % (Auto) 92.5 H (50-75) % Lymph % (Auto) 3.0 L (25-40) % [place] % (Auto) 4.3 (3-14) % Eos % (Auto) 0.0 L (2-4) % Baso % (Auto) 0.2 (0-2) % Neut # (Auto) 08322 H (9743-1407) /uL Lymph # (Auto) 300 L (8193-5640) /uL [place] # (Auto) 500 (0-900) /uL Eos # (Auto) 0 (0-450) /uL Baso # (Auto) 0 (0-100) /uL Sodium 134 L (137-145) mmol/L Potassium 3.3 L (3.4-5.1) mmol/L Chloride 100 (98-107) mmol/L Carbon Dioxide 24 (22-32) mmol/L BUN 16 (9-20) mg/dL Creatinine 0.92 (0.66-1.25) mg/dL Estimated GFR > 60 (>60) mL/min BUN/Creatinine Ratio 17.4 (6-22) Glucose 176 H (80-110) mg/dL Calcium 9.4 (8.4-10.2) mg/dL Total Bilirubin 1.1 (0.2-1.3) mg/dL AST 31 (17-59) IU/L ALT 20 (<50) IU/L Alkaline Phosphatase 63 (38-126) U/L Total Protein 8.7 H (6.3-8.2) g/dL Albumin 4.4 (3.5-5.0) g/dL Globulin 4.3 H (1.7-4.1) g/dL Albumin/Globulin Ratio 1.0 (1.0-2.8) Procalcitonin 0.13 (<0.5) ng/mL Chlamy pneumoniae PCR Not detected (Not Detect) Adenovirus (PCR) Not detected (Not Detect) B.parapertussis DNA PCR Not detected (Not Detecte) Coronavirus OC43 (PCR) Not detected (Not Detect) Coronavirus HKU1 (PCR) Not detected (Not Detect) Coronavirus 229E (PCR) Not detected (Not Detect) SARS-CoV-2 (PCR) Not detected (Not Detecte) Coronavirus NL63 (PCR) Not detected (Not Detect) Human Metapneumovir PCR Not detected (Not Detect) Influenza Type A (PCR) Not detected (Not Detect) Influenza Type B (PCR) Not detected (Not Detect) M. pneumoniae (PCR) Not detected (Not Detect) Parainfluenza 1 (PCR) Not detected (Not Detect) Parainfluenza 2 (PCR) Not detected (Not Detect) Parainfluenza 3 (PCR) Not detected (Not Detect) Parainfluenza 4 (PCR) Not detected (Not Detect) RSV (PCR) Not detected (Not Detect) Entero/Rhino (PCR) Not detected (Not Detect) MDM Narrative Medical decision making narrative: Well-appearing patient with fever and cough, concerned that he may have aspiration pneumonia. Requesting antibiotics. I explained that if he indeed does have aspiration pneumonitis antibiotics are not recommended therapy. Saturating well on room air, lungs are clear to auscultation, however he does have fever on arrival. A screening chest x-ray negative for acute process, however CT chest shows trace inflammation in the lower lung winn that may possibly be aspiration pneumonitis versus viral pneumonia. There is no elevated white blood cell count, negative procalcitonin. I discussed the patient's case with on-call pulmonology Dr. Kwan, who agreed that an aspiration pneumonitis cases antibiotics are not usually used, however since the patient reports that he frequently becomes very ill if he does not give antibiotics he recommended a 7 day course of Augmentin. Discharge Plan Departure Patient Disposition: Home Clinical Impression: Shortness of breath, Cough, Pneumonitis Instructions: DI for Aspiration Pneumonia Activity Restrictions/Additional Instructions: You were seen today for fever and cough. You have very faint traces of aspiration irritation in your left lower lung. It is no longer current recommendations to treat simple aspiration with antibiotics, however since you state that you get sick if you do not have them I will give you a course of Augmentin. Do not take antibiotics from other procedures randomly because they may not be indicated in your current situation. Sleep at an angle, take antacids, and follow up with your primary care physician. Take Tylenol and Motrin as needed for fever Prescriptions: New amoxicillin-pot clavulanate 875-125 mg tablet 1 tab PO Q12H Qty: 14 0RF No Action fluticasone propionate 16 GM spray,suspension 1 spray Intranasal BEDTIME Qty: 0 duloxetine 40 mg Capsule,Delayed Release(Dr/Ec) 40 mg PO BEDTIME gabapentin 100 mg Capsule 200 mg PO TID amoxicillin-pot clavulanate 875-125 mg Tablet 1 tab PO BID Qty: 10 0RF lisinopril 20 mg tablet 20 mg PO BID tizanidine 4 mg tablet 4 mg PO BID PRN (Reason: muscle spasms) Patient Comments: take 1 tablet by mouth at bedtime if needed for muscle spasm oxycodone 20 mg tablet 20 mg PO Q4HR Patient Comments: take 1 tablet by mouth every 4 hours NEEDED FOR PAIN maximum daily dose of 6 methadone 10 mg tablet 20 mg PO Q8H Patient Comments: take 1 tablet by mouth q8hr day omeprazole 20 mg capsule,delayed release(DR/EC) 20 mg PO BID hydrochlorothiazide 25 mg tablet 25 mg PO BID testosterone cypionate 200 mg/mL oil 200 mg IM QMONTH (DME) Respironics BIPAP AutoSV Advanced Qty: 1 Dose Instruction: As directed Patient Comments: Pressure: 6-15 cmH2O DME: Rx Instructions: As directed Referrals: Jameson Olmedo MD [Primary Care Provider] - Stand Alone Forms: Patient Portal/API
[2023-03-07 11:09] LABS: Alanine Aminotransferase 20 IU/L (<50); Albumin 4.4 g/dL (3.5-5.0); Alkaline Phosphatase 63 U/L (38-126); Aspartate Aminotransferase 31 IU/L (17-59); BUN Creatinine Ratio 17.4 (6-22); Bilirubin Total 1.1 mg/dL (0.2-1.3); Blood Urea Nitrogen 16 mg/dL (9-20); Calcium 9.4 mg/dL (8.4-10.2); Carbon Dioxide 24 mmol/L (22-32); Chloride 100 mmol/L (98-107); Estimated Glomerular Filt Rate > 60 mL/min (>60); Globulin 4.3 g/dL (1.7-4.1); Glucose 176 mg/dL (80-110); HEMOLYSIS < 15 (0-50); Potassium 3.3 mmol/L (3.4-5.1); Sodium 134 mmol/L (137-145); Total Protein 8.7 g/dL (6.3-8.2)
[2023-03-07] MEDS: SODIUM CHLORIDE 0.9% 1,000 ML 1000 ML IV (11:17)
[2023-03-07 11:47] LABS: Adenovirus Not Detected (Not Detect); B. parapertussis Not Detected (Not Detecte); Bordetella pertussis Not Detected (Not Detect); Chlamydophila pneumoniae Not Detected (Not Detect); Coronavirus 229E Not Detected (Not Detect); Coronavirus HKU1 Not Detected (Not Detect); Coronavirus NL 63 Not Detected (Not Detect); Coronavirus OC43 Not Detected (Not Detect); Human Metapneumovirus Not Detected (Not Detect); Human Rhinovirus/Enterovirus Not Detected (Not Detect); Influenza A Not Detected (Not Detect); Influenza B Not Detected (Not Detect); Mycoplasma pneumoniae Not Detected (Not Detect); Parainfluenza Virus 1 Not Detected (Not Detect); Parainfluenza Virus 2 Not Detected (Not Detect); Parainfluenza Virus 3 Not Detected (Not Detect); Parainfluenza Virus 4 Not Detected (Not Detect); Respiratory Syncytial Virus Not Detected (Not Detect); SARS- CoV-2 Not Detected (Not Detecte)
[2023-03-07 11:47] LABS: Procalcitonin 0.13 ng/mL (<0.5)
--- NOTE | 2023-03-07 12:17 | DI.CT.S_ITS ---
PROCEDURE: CT CHEST WO CON INDICATIONS: COUGH, FEVER, POSS ASPIRATION TECHNIQUE: Noncontrast 5 mm thick sections acquired from the pulmonary apices to the posterior costophrenic angles. 1 mm lung window, 5 mm thick coronal and sagittal and 7 mm axial MIP reformats were then acquired. For radiation dose reduction, the following was used: automated exposure control, adjustment of mA and/or kV according to patient size. COMPARISON: [facility], CT, CT CHEST W CON, 01/12/2023, 11:27. FINDINGS: Image quality: Excellent. Lungs and pleura: Development of bilateral scattered patchy ground-glass opacities subtle areas of more confluent consolidation. Increased ground-glass opacities and more focal consolidation in the left lower lobe compared to the previous study. No pleural effusions or pneumothorax. Central and peripheral airways are patent and normal in caliber. Mediastinum: Heart size is normal. No pericardial effusion. No mediastinal adenopathy by size criteria. Thoracic aorta and central pulmonary arteries are normal in size. Esophagus is normal in caliber. No hiatal hernia. Bones and chest wall: No suspicious bony lesions. Scoliotic curvature with bilateral Vega rods. No vertebral body compression fractures. No axillary or supraclavicular adenopathy by size criteria. No thyroid nodules which require sonographic follow up, per consensus guidelines. Upper Abdomen: Visualized upper abdominal solid organs and bowel loops appear normal in the absence of contrast. IMPRESSION: Progression of findings relative to the previous study. There are no subtle ground-glass opacities and subtle more focal areas of consolidative opacity bilaterally. Findings are nonspecific. Consider viral pneumonitis versus early changes from aspiration pneumonia. Dictated by: Saturnino Shirley M.D. on 03/07/2023 at 12:48 Approved by: Saturnino Shirley M.D. on 03/07/2023 at 12:52
== END 2023-03-07 13:22 | disposition home or self-care (01) ==
PROVIDERS: Emergency Provider Emergency Medicine; Family Provider Family Medicine; PCP Family Medicine
DX: J98.4 Other disorders of lung (principal); R06.02 Shortness of breath; R05.9 Cough, unspecified; Z87.891 Personal history of nicotine dependence
CPT/HCPCS: 36415; 71045; 71250; 80053; 84145; 85025; 87040; 87633; 96360; 99284

== ENCOUNTER 2023-07-24 05:30 | Inpatient (IN) | payer BC, SELFPAY ==
[2022-05-17 17:48] VITALS: BMI 26.2
[2023-07-24] VITALS (13 sets, daily range): BP systolic 108–138; BP diastolic 56–69; PULSE 56–107; RESP 14–22; TEMP 37–39.2; O2SAT 86–96; BMI 25.1
--- NOTE | 2023-07-24 05:36 | DI.RAD.S_ITS ---
PROCEDURE: XR CHEST 1V INDICATIONS: DYSPNEA, HYPOXIA, HX ASPIRATION PNA TECHNIQUE: One view of the chest was acquired. COMPARISON: [facility], , XR CHEST 1V, 03/07/2023, 10:42. FINDINGS: Surgical changes and devices: Redemonstration of posterior spinal fusion hardware. Right upper quadrant cholecystectomy clips. Lungs and pleura: Left lower lung opacity. No pleural effusions or pneumothorax. Mediastinum: Mediastinal contours appear normal. Heart size is normal. Bones and chest wall: No suspicious bony lesions. Overlying soft tissues appear unremarkable. IMPRESSION: Left lower lobe infiltrate. Follow-up chest radiograph after appropriate treatment to document resolution. Findings are concordant with preliminary interpretation provided by [facility]. Approved by: Mary Naqvi M.D.,Ph.D. on 07/24/2023 at 9:04
--- NOTE | 2023-07-24 05:47 | ED.SOB ---
HPI - SOB/Dyspnea General Chief Complaint: Shortness of Breath/Dyspnea Stated Complaint: sob, low oxy level Time Seen by Provider: 07/24/23 05:36 Source: patient and family Mode of arrival: Ambulatory Limitations: no limitations History of Present Illness HPI Narrative: 63yoM with PMH hiatal hernia, recurrent aspiration pneumonia presents by private vehicle from home for cough, shortness of breath, low oxygen saturations at home. Patient woke up feeling short of breath and measured his oxygen at home using a pulse ox. He states it measured in the 80s and decided to present for evaluation. On arrival patient noted to be febrile, tachycardic, saturating 86% on room air. Related Data Home Medications Medication Instructions Recorded Confirmed fluticasone propionate 50 1 spray intranasal BEDTIME ##0 04/22/16 05/17/22 mcg/actuation nasal spray,suspension Respironics BIPAP AutoSV Advanced #1 ea 05/13/18 05/17/22 hydrochlorothiazide 25 mg tablet 25 mg PO BID 08/16/21 05/17/22 lisinopril 20 mg tablet 20 mg PO BID 08/16/21 05/17/22 methadone 10 mg tablet 20 mg PO Q8H 08/16/21 05/17/22 omeprazole 20 mg capsule,delayed 20 mg PO BID 08/16/21 05/17/22 release oxycodone 20 mg tablet 20 mg PO Q4HR 08/16/21 05/17/22 testosterone cypionate 200 mg/mL 200 mg IM QMONTH 08/16/21 05/17/22 intramuscular oil tizanidine 4 mg tablet 4 mg PO BID PRN muscle spasms 08/16/21 05/17/22 duloxetine 40 mg capsule,delayed 40 mg PO BEDTIME 05/17/22 05/17/22 release gabapentin 100 mg capsule 200 mg PO TID 05/17/22 05/17/22 Previous Rx's Medication Instructions Recorded amoxicillin 875 mg-potassium 1 tab PO BID #10 tabs 05/19/22 clavulanate 125 mg tablet amoxicillin 875 mg-potassium 1 tab PO Q12H #14 tabs 03/07/23 clavulanate 125 mg tablet Allergies Allergy/AdvReac Type Severity Reaction Status Date / Time tamsulosin [From Flomax] Allergy Intermediate Irritable Verified 01/12/23 10:02 bupropion [From WELLBUTRIN] Allergy Mild rash/nausea Verified 01/12/23 10:02 Mvhdtxr-TKN-IrA Reductase AdvReac Unknown FLORENTINO Verified 01/12/23 10:02 Inhibitor HORSES IN [TFJYHEC-RQA-LKM REDUCTASE LEGS INHIBITOR] Review of Systems Review of Systems Narrative: See HPI Patient History Medical History Chronic pain syndrome Status post lumbar spinal arthrodesis Hiatal hernia Shortness of breath Chronic pain Aspiration pneumonia due to gastric secretions Obstructive sleep apnea of adult Snoring Scoliosis deformity of spine Surgical History Status post thoracic spinal fusion H/O knee surgery History of cholecystectomy History of lumbar fusion Family History Father Congestive heart failure Liver disease Mother Heart disease Social History marital status: details: raghu Velez, lives in [place] household members: spouse lives independently: Yes caregiver/support person: No housing: house education level: college occupational status: employed current occupational exposures/hazards: Yes (asbestos, silica, other particulates) 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 Smoking Status: Former smoker alcohol intake: former substance use type: does not use Smoking Status: Former smoker tobacco type: cigarettes alcohol intake frequency: 0-2 drinks per day Substance Use Type: does not use Exam Initial Vital Signs Initial Vital Signs: Vital Signs Pulse Rate 105 H 07/24/23 05:36 Pulse Oximetry 90 L 07/24/23 05:36 Oxygen Delivery Method Nasal Cannula 07/24/23 05:36 Oxygen Flow Rate 2 07/24/23 05:36 Const: Awake, alert, no acute distress Cardiac: Regular rate, regular rhythm RESP: unlabored, no wheezing GI: Soft, nontender, Skin: Warm, Dry, intact, no rashes Neuro: AO x3, CN II-XII grossly intact, moves all extremities Course Orders Ordered: ED Orders 07/24/23 05:30 Blood Culture Stat 07/24/23 05:36 XR chest 1V Stat Urinalysis and Microscopic Stat EKG-12 Lead Stat 07/24/23 05:40 Complete Blood Count AUTO DIFF Stat Comprehensive Metabolic Panel Stat Lactate (Lactic Acid) Stat Procalcitonin Stat Respiratory Panel (Film Array) Stat Troponin & CK Cardiac Panel Stat 07/24/23 06:09 BNP [NT-proBNP (BNP-Adult 18+)] Stat Lactated Ringer's (Lactated Ringers) 2,400 mls @ 800 mls/hr 30 ml/kg infuse over 3 hr (2400 ml) IV NOW ONE Stop: 07/24/23 08:35 Last Admin: 07/24/23 05:53 Dose: 800 mls/hr Discontinued Medications Acetaminophen (Acetaminophen 325 Mg Tablet) 975 mg PO NOW ONE Stop: 07/24/23 05:55 Last Admin: 07/24/23 05:57 Dose: 975 mg Piperacillin Sod/Tazobactam (Sod 4.5 gm/ Sodium Chloride) 100 mls @ 200 mls/hr IV NOW ONE Stop: 07/24/23 05:37 Last Admin: 07/24/23 05:55 Dose: 200 mls/hr Vital Signs Vital signs: Vital Signs - 8 hr 07/24/23 05:36 07/24/23 05:40 07/24/23 05:59 Temperature 101 F H 102.5 F H Pulse Rate 105 H 107 H Respiratory Rate 22 Blood Pressure 138/67 Pulse Oximetry 90 L 86 L Oxygen Delivery Method Nasal Cannula Room Air Oxygen Flow Rate 2 07/24/23 06:00 07/24/23 06:00 Temperature Pulse Rate 102 H Respiratory Rate 17 Blood Pressure 133/69 Pulse Oximetry 92 Oxygen Delivery Method Nasal Cannula Oxygen Flow Rate 2 MDM - SOB/Dyspnea Differential Diagnosis Differential diagnosis: Likely acute exacerbation of chronic obstructive airways disease, congestive heart failure and community acquired pneumonia Lab Data 07/24/23 05:40 07/24/23 05:40 Labs: Lab Results 07/24/23 Range/Units 05:40 WBC 8.9 (4.5-11.0) X10^3/uL RBC 5.34 (4.5-5.9) X10^6/uL Hgb 13.7 (13.5-17.5) g/dL Hct 42.3 (41-53) % MCV 79.2 L (80-100) fL MCH 25.6 L (26-34) PG MCHC 32.3 (30-36) % RDW 17.9 H (11.6-14.8) % Plt Count 270 (150-400) X10^3/uL Neut % (Auto) 86.4 H (50-75) % Lymph % (Auto) 10.4 L (25-40) % [place] % (Auto) 2.6 L (3-14) % Eos % (Auto) 0.4 L (2-4) % Baso % (Auto) 0.2 (0-2) % Neut # (Auto) 7700 H (7112-7907) /uL Lymph # (Auto) 900 L (5118-0736) /uL [place] # (Auto) 200 (0-900) /uL Eos # (Auto) 0 (0-450) /uL Baso # (Auto) 0 (0-100) /uL Sodium 137 (137-145) mmol/L Potassium 3.5 (3.4-5.1) mmol/L Chloride 101 (98-107) mmol/L Carbon Dioxide 29 (22-32) mmol/L BUN 16 (9-20) mg/dL Creatinine 1.02 (0.66-1.25) mg/dL Estimated GFR > 60 (>60) mL/min BUN/Creatinine Ratio 15.7 (6-22) Glucose 128 H (80-110) mg/dL Lactate 2.1 (0.7-2.1) mmol/L Calcium 8.9 (8.4-10.2) mg/dL Total Bilirubin 1.0 (0.2-1.3) mg/dL AST 33 (17-59) IU/L ALT 20 (<50) IU/L Alkaline Phosphatase 53 (38-126) U/L Total Creatine Kinase 125 (55-170) U/L Troponin I < 0.012 (0.01-0.034) ng/mL Total Protein 8.9 H (6.3-8.2) g/dL Albumin 4.8 (3.5-5.0) g/dL Globulin 4.1 (1.7-4.1) g/dL Albumin/Globulin Ratio 1.2 (1.0-2.8) ECG Data Interpretation: Normal sinus rhythm, rate 89bpm, normal AK, no ST-T wave changes MDM Narrative Medical decision making narrative: Fever, shortness of breath, low oxygen saturations in patient with hiatal hernia and history of aspiration pneumonia. No obvious findings on pulmonary exam, however he was febrile and saturating in the mid to low 80s on room air. Placed on supplemental nasal cannula, sepsis bundle ordered with Zosyn ordered for coverage. Respiratory therapy paged for evaluation. X-ray shows left lower lobe infiltrate. Patient saturating 93-94% on 2L NC. Laboratory work significant for WBC count 8.9, hemoglobin 13.7, sodium 137, potassium 3.5, chloride 101, creatinine 1.02, normal liver enzymes. Plan to admit for further antibiotics and treatment. Discharge Plan Departure Patient Disposition: Admitted As Inpatient Clinical Impression: Aspiration pneumonia Qualifiers: Aspiration pneumonia type: due to gastric secretions Laterality: left Lung location: lower lobe of lung Qualified Code(s): J69.0 - Pneumonitis due to inhalation of food and vomit Sepsis Qualifiers: Sepsis type: sepsis due to unspecified organism Sepsis acute organ dysfunction status: with acute organ dysfunction Severe sepsis acute organ dysfunction type: acute respiratory failure Acute respiratory failure type: with hypoxia Severe sepsis shock status: without septic shock Qualified Code(s): A41.9 - Sepsis, unspecified organism; R65.20 - Severe sepsis without septic shock; J96.01 - Acute respiratory failure with hypoxia Admit Date/Time: 07/24/23 06:33 Admit Provider: Jameson Olmedo
[2023-07-24] MEDS: LACTATED RINGERS 2,400 ML 800 ML IV (05:53)
[2023-07-24 05:54] LABS: Add Manual Diff / Slide Review NO; Basophils Absolute Auto 0 /uL (0-100); Basophils Percent Auto 0.2 % (0-2); Eosinophils Absolute Auto 0 /uL (0-450); Eosinophils Percent Auto 0.4 % (2-4); Hematocrit 42.3 % (41-53); Hemoglobin 13.7 g/dL (13.5-17.5); Lymphocytes Absolute Auto 900 /uL (1100-4500); Lymphocytes Percent Auto 10.4 % (25-40); Mean Corpuscular HGB Conc 32.3 % (30-36); Mean Corpuscular Hemoglobin 25.6 PG (26-34); Mean Corpuscular Volume 79.2 fL (80-100); Monocytes Absolute Auto 200 /uL (0-900); Monocytes Percent Auto 2.6 % (3-14); Neutrophils Absolute Auto 7700 /uL (1500-7000); Neutrophils Percent Auto 86.4 % (50-75); Platelet Count 270 X10^3/uL (150-400); Red Blood Cell Count 5.34 X10^6/uL (4.5-5.9); Red Cell Distribution Width 17.9 % (11.6-14.8); White Blood Cell Count 8.9 X10^3/uL (4.5-11.0)
[2023-07-24] MEDS: PIPERACILLIN/TAZO 4.5 GM in SODIUM CHLORIDE 0.9% 100 ML IV (05:55)
[2023-07-24] MEDS: ACETAMINOPHEN 325 MG TABLET 975 MG PO (05:57)
[2023-07-24 06:01] LABS: Alanine Aminotransferase 20 IU/L (<50); Albumin 4.8 g/dL (3.5-5.0); Albumin Globulin Ratio 1.2 (1.0-2.8); Alkaline Phosphatase 53 U/L (38-126); Aspartate Aminotransferase 33 IU/L (17-59); BUN Creatinine Ratio 15.7 (6-22); Blood Urea Nitrogen 16 mg/dL (9-20); Calcium 8.9 mg/dL (8.4-10.2); Carbon Dioxide 29 mmol/L (22-32); Chloride 101 mmol/L (98-107); Creatine Kinase 125 U/L (55-170); Estimated Glomerular Filt Rate > 60 mL/min (>60); Globulin 4.1 g/dL (1.7-4.1); Glucose 128 mg/dL (80-110); Lactate (Lactic Acid) 2.1 mmol/L (0.7-2.1); Potassium 3.5 mmol/L (3.4-5.1); Sodium 137 mmol/L (137-145); Total Protein 8.9 g/dL (6.3-8.2)
[2023-07-24 06:13] LABS: Troponin I < 0.012 ng/mL (0.01-0.034)
[2023-07-24 06:36] LABS: Adenovirus Not Detected (Not Detect); B. parapertussis Not Detected (Not Detecte); Bordetella pertussis Not Detected (Not Detect); Chlamydophila pneumoniae Not Detected (Not Detect); Coronavirus 229E Not Detected (Not Detect); Coronavirus HKU1 Not Detected (Not Detect); Coronavirus NL 63 Not Detected (Not Detect); Coronavirus OC43 Not Detected (Not Detect); Human Metapneumovirus Not Detected (Not Detect); Human Rhinovirus/Enterovirus Not Detected (Not Detect); Influenza A Not Detected (Not Detect); Influenza B Not Detected (Not Detect); Mycoplasma pneumoniae Not Detected (Not Detect); Parainfluenza Virus 1 Not Detected (Not Detect); Parainfluenza Virus 2 Not Detected (Not Detect); Parainfluenza Virus 3 Not Detected (Not Detect); Parainfluenza Virus 4 Not Detected (Not Detect); Respiratory Syncytial Virus Not Detected (Not Detect); SARS- CoV-2 Not Detected (Not Detecte)
[2023-07-24 06:39] LABS: NT-proBNP (BNP-Adult 18+) < 20 pg/mL (<125)
[2023-07-24 06:41] LABS: HEMOLYSIS 47 (0-50); Procalcitonin 0.07 ng/mL (<0.5)
[2023-07-24 07:22] LABS: Reflexed Lactate in 2 Hours Y
--- NOTE | 2023-07-24 08:01 | PC.NURSE ---
Report given to Btaylor from Overnight ED charge nurse.
[2023-07-24 08:08] LABS: Lactate 2HR (Lactic Acid Rflx) 1.6 mmol/L (0.7-2.1)
--- NOTE | 2023-07-24 09:15 | PM.HP.1 ---
History of Present Illness History of Present Illness Date Patient Seen: 07/24/23 Time Patient Seen: 09:16 Date of Onset of Symptoms: 07/23/23 Chief complaint: sob, low oxy level Narrative: Patient is a 63-year-old male well known to me who has a history of recurrent aspiration pneumonias who presents with acute onset shortness of breath. Patient was feeling maybe a little heaviness yesterday. Had typhoid last night. Did not feel like he had any issue maybe a little bit increased heartburn and then woke up this morning with shortness of breath. Middle of the night. Just could not feel like he was getting his breath but like his pulse ox was low. Has had this before. Coughing with productive sputum. No nausea no vomiting. No other changes. He has otherwise had no burning with urination change in bowel movements. Prior to yesterday he was feeling great. Getting a lot done around the house. And had not had any issues. Patient has had multiple episodes last requiring admission was a year ago. He has had several episodes at least 2 over the last year treated as an outpatient. Otherwise no change. [facility] Medical History Chronic pain syndrome Status post lumbar spinal arthrodesis Hiatal hernia Shortness of breath Chronic pain Aspiration pneumonia due to gastric secretions Obstructive sleep apnea of adult Snoring Scoliosis deformity of spine Surgical History Status post thoracic spinal fusion H/O knee surgery History of cholecystectomy History of lumbar fusion Family History Father Congestive heart failure Liver disease Mother Heart disease Social History marital status: details: raghu Velez, lives in [place] household members: spouse lives independently: Yes caregiver/support person: No housing: house education level: college occupational status: employed current occupational exposures/hazards: Yes (asbestos, silica, other particulates) 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 Smoking Status: Former smoker alcohol intake: former substance use type: does not use Meds Home Medications and Allergies Home Medications Medication Instructions Recorded Confirmed Type fluticasone propionate 50 1 spray intranasal BEDTIME ##0 04/22/16 07/24/23 History mcg/actuation nasal spray,suspension Respironics BIPAP AutoSV Advanced #1 ea 05/13/18 07/24/23 History hydrochlorothiazide 25 mg tablet 25 mg PO BID 08/16/21 07/24/23 History lisinopril 20 mg tablet 20 mg PO BID 08/16/21 07/24/23 History methadone 10 mg tablet 20 mg PO Q4H 08/16/21 07/24/23 History omeprazole 20 mg capsule,delayed 20 mg PO BID 08/16/21 07/24/23 History release oxycodone 20 mg tablet 20 mg PO Q4HR 08/16/21 07/24/23 History testosterone cypionate 200 mg/mL 200 mg IM QMONTH 08/16/21 07/24/23 History intramuscular oil tizanidine 4 mg tablet 4 mg PO BID PRN muscle spasms 08/16/21 07/24/23 History duloxetine 40 mg capsule,delayed 40 mg PO BEDTIME 05/17/22 07/24/23 History release gabapentin 100 mg capsule 200 mg PO TID 05/17/22 07/24/23 History Allergies Allergy/AdvReac Type Severity Reaction Status Date / Time tamsulosin [From Flomax] Allergy Intermediate Irritable Verified 01/12/23 10:02 bupropion [From WELLBUTRIN] Allergy Mild rash/nausea Verified 01/12/23 10:02 Rusyisf-FVA-DaH Reductase AdvReac Unknown CHARLEY Verified 01/12/23 10:02 Inhibitor HORSES IN [PSOGHFS-OAA-GLM REDUCTASE LEGS INHIBITOR] Review of Systems Review of Systems Narrative: All negative except above Exam Vital Signs (past 8 hours): - 07/24/23 05:36 07/24/23 05:40 07/24/23 05:59 Temperature 101 F H 102.5 F H Pulse Rate 105 H 107 H Respiratory Rate 22 Blood Pressure 138/67 Pulse Oximetry 90 L 86 L Oxygen Delivery Method Nasal Cannula Room Air Oxygen Flow Rate 2 07/24/23 06:00 07/24/23 06:00 07/24/23 06:30 Temperature Pulse Rate 102 H Respiratory Rate 17 Blood Pressure 133/69 127/66 Pulse Oximetry 92 Oxygen Delivery Method Nasal Cannula Oxygen Flow Rate 2 07/24/23 06:30 07/24/23 06:45 07/24/23 07:00 Temperature 101.8 F H Pulse Rate 90 77 Respiratory Rate 16 14 Blood Pressure Pulse Oximetry 93 92 Oxygen Delivery Method Nasal Cannula Oxygen Flow Rate 2 07/24/23 07:00 07/24/23 07:30 07/24/23 07:30 Temperature Pulse Rate 73 Respiratory Rate 15 Blood Pressure 111/57 L 108/57 L Pulse Oximetry 94 Oxygen Delivery Method Oxygen Flow Rate 07/24/23 08:20 Temperature Pulse Rate Respiratory Rate Blood Pressure Pulse Oximetry Oxygen Delivery Method Room Air Oxygen Flow Rate Oxygen Delivery Method Room Air Oxygen Flow Rate 2 Narrative Exam Narrative: Alert male in no acute distress. Mucous membranes moist. Neck supple without adenopathy JVD or bruits lungs with crackles and rhonchi left base otherwise clear. Abdomen is soft positive bowel sounds nontender extremities without edema. Neurologic exam is normal. Objective Labs 07/24/23 05:40 07/24/23 05:40 Labs: Laboratory Results - last 24 hr 07/24/23 07/24/23 05:40 07:50 WBC 8.9 RBC 5.34 Hgb 13.7 Hct 42.3 MCV 79.2 L MCH 25.6 L MCHC 32.3 RDW 17.9 H Plt Count 270 Neut % (Auto) 86.4 H Lymph % (Auto) 10.4 L [place] % (Auto) 2.6 L Eos % (Auto) 0.4 L Baso % (Auto) 0.2 Neut # (Auto) 7700 H Lymph # (Auto) 900 L [place] # (Auto) 200 Eos # (Auto) 0 Baso # (Auto) 0 Sodium 137 Potassium 3.5 Chloride 101 Carbon Dioxide 29 BUN 16 Creatinine 1.02 Estimated GFR > 60 BUN/Creatinine Ratio 15.7 Glucose 128 H Lactate 2.1 1.6 Calcium 8.9 Total Bilirubin 1.0 AST 33 ALT 20 Alkaline Phosphatase 53 Total Creatine Kinase 125 Troponin I < 0.012 NT-Pro-B Natriuret Pep < 20 Total Protein 8.9 H Albumin 4.8 Globulin 4.1 Albumin/Globulin Ratio 1.2 Procalcitonin 0.07 Chlamy pneumoniae PCR Not detected Adenovirus (PCR) Not detected B.parapertussis DNA PCR Not detected Coronavirus OC43 (PCR) Not detected Coronavirus HKU1 (PCR) Not detected Coronavirus 229E (PCR) Not detected SARS-CoV-2 (PCR) Not detected Coronavirus NL63 (PCR) Not detected Human Metapneumovir PCR Not detected Influenza Type A (PCR) Not detected Influenza Type B (PCR) Not detected M. pneumoniae (PCR) Not detected Parainfluenza 1 (PCR) Not detected Parainfluenza 2 (PCR) Not detected Parainfluenza 3 (PCR) Not detected Parainfluenza 4 (PCR) Not detected RSV (PCR) Not detected Entero/Rhino (PCR) Not detected Assessment & Plan Assessment & Plan narrative: Recurrent aspiration pneumonia. Left lower lung. Interestingly this is in the left side. We discussed this. It is always in the left side it seems. Rapid onset. We discussed this. Clearly we are going to treat with Unasyn we will follow blood cultures and fever curve. Still has a fever at this point. Will need to be 24 hours without fever before we switch to oral probably will require 2 Saturday. But will have to see. Given his recurrent aspiration we are going to get a speech swallowing study and see if there is some abnormality that were missing otherwise given his recurrent nature will refer to hardware assembler as outpatient. Does not have to happen today. Patient understands questions answered will continue O2 as needed. Fluid status I do not think he needs any fluids he is taking p.o. well and will follow. Reflux. Will continue his usual PPI. He has been consistent with that has no other changes. Chronic back pain due to severe scoliosis status post surgery has been improved. But needs to continue usual methadone. Will follow. Hypertension. Stable. Will follow Code status full. GI prophylaxis on PPI. Disposition. Expect 48 hours at least but will see how things go. Discussed with the patient.
--- NOTE | 2023-07-24 09:47 | DI.RAD.S_ITS ---
PROCEDURE: FL BARIUM SWALLOW W SPEECH INDICATIONS: recurrent aspitration COMPARISON: None. TECHNIQUE: Examination was conducted in conjunction with speech pathology per standard protocol. In the lateral projection, filming was performed of the patient swallowing. AP projection filming may also be performed with patient swallowing. COMPARISON: FINDINGS: Function: The oral preparatory phase appears unremarkable, with proper containment. The subsequent oral propulsive phase, pharyngeal phase, and esophageal phase of swallowing also appear unremarkable with all proffered substances. No laryngotracheal penetration or aspiration. Morphology: No cricopharyngeal bar is identified. . No Zenker's diverticulum. Marked irregularity of the mid, distal esophagus is only partially visualized due to overlying hardware. Fluoroscopic time: 2.8 minutes. 48 images saved. IMPRESSION: Marked irregularity of the mid, distal esophagus is poorly visualized due to overlying hardware. If indicated, endoscopy may further evaluate. See speech pathologist's notes for detailed discussion. Dictated by: Casper Vargas M.D. on 07/24/2023 at 17:20 Approved by: Casper Vargas M.D. on 07/24/2023 at 17:23
[2023-07-24] MEDS: AMPICILLIN/SULBACTAM 3 GM 3 GM in SODIUM CHLORIDE 0.9% 100 ML IV ×3 (10:18→21:25)
[2023-07-24] MEDS: ENOXAPARIN 40 MG/0.4 ML SYRINGE SUBCUT (10:19)
[2023-07-24] MEDS: OXYCODONE IR 10 MG TABLET 20 MG PO ×3 (10:19→21:24)
[2023-07-24] MEDS: METHADONE 10 MG TABLET 20 MG PO ×3 (10:19→21:24)
[2023-07-24] MEDS: GABAPENTIN 100 MG CAPSULE 200 MG PO ×3 (10:20→20:09)
[2023-07-24 11:06] LABS: Appearance Urine UA CLEAR; Bilirubin Urine UA NEGATIVE (NEGATIVE); Color Urine UA YELLOW; Glucose Urine UA NEGATIVE (Negative); Ketones Urine UA NEGATIVE (NEGATIVE); Leukocyte Esterase Urine UA NEGATIVE (NEGATIVE); Nitrite Urine UA NEGATIVE (Negative); Occult Blood Urine UA NEGATIVE (Negative); Protein Urine UA NEGATIVE (Negative); Specific Gravity Urine UA 1.025 (1.000-1.035); Urobilinogen Urine UA 0.2 E.U./dL (0.2)
[2023-07-24 11:09] LABS: Urine Volume 10mL (spun)
[2023-07-24 11:10] LABS: Bacteria Urine None Seen; Culture Indicated Urine Cult Not Indicated; RBC Urine None Seen (0-5/HPF); Squamous Epithelial Cell Urine None Seen (0-5/HPF); WBC Urine None Seen (0-5/HPF)
--- NOTE | 2023-07-24 14:52 | ST.SWALLOW ---
Visit Care Team Role Provider Type Raiza Saldivar MD Emergency Provider Physician Referring Provider Specialty: Emergency Medicine Address: [address] [place] [address], [address] Email: [email or web address] Jameson Olmedo MD Admit Provider Physician Attending Provider Family Provider Primary Care Provider Specialty: Family Practice Address: [facility], [address], [place], [address] Email: [email or web address] Modified Barium Swallow Study PHARMACOGENETICIST Modified Barium Swallow Study Start: 07/24/23 13:59 Freq: Status: Active Protocol: Document 07/24/23 14:01 LNK (Rec: 07/24/23 14:52 LNK [id number]) Modified Barium Swallow Study Total Time Visit Start Time 13:00 Visit Stop Time 13:45 Total Visit Minutes [address] Olmedo Reason for Referral reurrent pneumonis Setting Setting Outpatient Care Patient Information Identification Type Name,Date of Patient History Patient is a 63-year-old male with a history of recurrent aspiration pneumonias who presented with acute onset shortness of breath. Patient was feeling maybe a little heaviness yesterday. Pt reported he could not feel like he was getting his breath and like his pulse O2 was low . Has had this before frequently. Coughing with productive sputum. No nausea no vomiting. No other changes . MBSS ordered to r/o oropharyngeal dysphagia/ aspiration. Subjective Observations Pt brought to fluoroscopy room from . Instructions and directions described for him. Pt indicated he understood and agreed to proceed. Patient Positioning Position View Lat-A/P Imaging Lateral View Textures Administered Trials Presented Thin Liquid via Spoon (IDDSI 0 ),Thin Liquid via Cup (IDDSI 0 ),Extremely Thick Liquid via Spoon (IDDSI 4),Regular (IDDSI 7) Barium Tablet Yes The IDDSI Framework Protocol: IDDSI.1 Oral Impairment Source: The Modified Barium Swallow Impairment Profile (MBSImP??) Lip Closure No labial escape Tongue Control During Bolus Hold Cohesive bolus between tongue to palatal seal Bolus Preparation/Mastication Timely & efficient chewing & mashing Bolus Transport/Lingual Motion Brisk tongue motion Oral Residue Trace residue lining oral structures Location Tongue Initiation of Pharyngeal Swallow Bolus head in valleculae Additional Oral Impairment Observations OME and DKS observed to be WNL . Pt in process of getting permanent (implant) dentures. Mastication was more anterior than usual due to the size and limitations of the prosthetic teeth. Good bolus preparation, control and AP transition. Pharyngeal Impairment Source: The Modified Barium Swallow Impairment Profile (MBSImP??) Soft Palate Elevation No bolus between soft palate & pharyngeal wall Laryngeal Elevation Part.sup.move.thyroid cart/ part.approx.arytenoids to epiglot.petiole Anterior Hyoid Excursion Partial anterior movement Epiglottic Movement Complete inversion Laryngeal Vestibular Closure Complete; no air/contrast in laryngeal vestibule Pharyngeal Stripping Wave Present - complete Pharyngoesophageal Segment Opening Complete distention & complete duration; no obstruction of flow Tongue Base Retraction Narrow column of contrast/air betwn tongue base & post. pharyngeal wall Pharyngeal Residue Trace residue within/on pharyngeal structures Location Pyriform sinuses Additional Pharyngeal Impairment Mild tongue base weakness and Observations hyolaryngeal elevation observed. Epiglottic inversion was complete with good seal of laryngeal vestibule and stripping of the posterior pharyngeal wall. Trace residual of contrast observed in the valeculla and the pyriform sinuses, Residue cleared with spontaneous second swallow. No laryngeal penetration or tracheal aspiration observed across all trials. Pt's pharyngeal swallow was observed to be WFL . A/P View Textures Administered Trials Presented Thin Liquid via Cup (IDDSI 0) The IDDSI Framework Protocol: IDDSI.1 A/P View Observations Pharyngeal Contraction Complete Esophageal Clearance Upright Position Esophageal retention Vocal Fold Function Good Esophageal Function Slowed Clearing Additional A-P Observations Hiatal hernia noted. Otherwise , liquid trials and barium tablet cleared esophagus to stomach. The results of the MBSS were reviewed and discussed witht the pt. All questions answered. MD notified of results. GI referral recommended. Clinical Impressions Dysphagia Type Esophageal Findings Oropharyngeal swallow appeared to be WFL-WNL. Esophageal phase of swallow noted hiatal hernia. Patient Appropriate for Therapy No Recommendations Diet Comments No diet changes at this time Aspiration Precautions Additional Precautions HOB elevated to reduce retro flow of hiatal hernia contents Treatment Plan Recommended Referrals GI Consult
[2023-07-24] MEDS: MAGNESIUM HYDROXIDE 30 ML UDC PO (18:07)
[2023-07-24] MEDS: DULOXETINE 20 MG CAPSULE 40 MG PO (20:08)
[2023-07-24] MEDS: hydroCHLOROthiazide 25 MG TABLET PO (20:09)
[2023-07-24] MEDS: PANTOPRAZOLE DR 20 MG TABLET PO (20:09)
[2023-07-24] MEDS: ACETAMINOPHEN 325 MG TABLET 650 MG PO (20:09)
[2023-07-24] MEDS: FLUTICASONE 120 SPRAY/16 GM SPRAY.SUSP NASAL (20:15)
[2023-07-25] VITALS (8 sets, daily range): BP systolic 108–134; BP diastolic 56–70; PULSE 46–56; RESP 17–18; TEMP 36.3–36.9; O2SAT 92–96
[2023-07-25] MEDS: TIZANIDINE 4 MG TABLET PO ×2 (01:43→23:00)
[2023-07-25] MEDS: AMPICILLIN/SULBACTAM 3 GM 3 GM in SODIUM CHLORIDE 0.9% 100 ML IV ×4 (03:48→21:56)
[2023-07-25 07:09] LABS: Add Manual Diff / Slide Review NO; Basophils Absolute Auto 0 /uL (0-100); Basophils Percent Auto 0.3 % (0-2); Eosinophils Absolute Auto 100 /uL (0-450); Eosinophils Percent Auto 1.5 % (2-4); Hematocrit 32.9 % (41-53); Hemoglobin 10.9 g/dL (13.5-17.5); Lymphocytes Absolute Auto 1200 /uL (1100-4500); Mean Corpuscular Hemoglobin 26.1 PG (26-34); Mean Corpuscular Volume 79.1 fL (80-100); Monocytes Absolute Auto 400 /uL (0-900); Monocytes Percent Auto 6.9 % (3-14); Neutrophils Absolute Auto 4600 /uL (1500-7000); Neutrophils Percent Auto 72.3 % (50-75); Platelet Count 198 X10^3/uL (150-400); Red Blood Cell Count 4.16 X10^6/uL (4.5-5.9); White Blood Cell Count 6.3 X10^3/uL (4.5-11.0)
[2023-07-25 07:20] LABS: Alanine Aminotransferase 16 IU/L (<50); Albumin 3.6 g/dL (3.5-5.0); Albumin Globulin Ratio 1.1 (1.0-2.8); Alkaline Phosphatase 46 U/L (38-126); Aspartate Aminotransferase 21 IU/L (17-59); BUN Creatinine Ratio 18.8 (6-22); Bilirubin Total 0.7 mg/dL (0.2-1.3); Blood Urea Nitrogen 16 mg/dL (9-20); Calcium 8.2 mg/dL (8.4-10.2); Carbon Dioxide 28 mmol/L (22-32); Chloride 103 mmol/L (98-107); Estimated Glomerular Filt Rate > 60 mL/min (>60); Globulin 3.3 g/dL (1.7-4.1); Glucose 108 mg/dL (80-110); HEMOLYSIS < 15 (0-50); Potassium 3.1 mmol/L (3.4-5.1); Sodium 135 mmol/L (137-145); Total Protein 6.9 g/dL (6.3-8.2)
[2023-07-25] MEDS: OXYCODONE IR 10 MG TABLET 20 MG PO ×4 (08:45→21:30)
[2023-07-25] MEDS: METHADONE 10 MG TABLET 20 MG PO ×3 (08:45→21:31)
[2023-07-25] MEDS: ENOXAPARIN 40 MG/0.4 ML SYRINGE SUBCUT (08:45)
[2023-07-25] MEDS: hydroCHLOROthiazide 25 MG TABLET PO ×2 (08:46→21:31)
[2023-07-25] MEDS: lisinopriL 20 MG TABLET PO ×2 (08:46→21:31)
[2023-07-25] MEDS: GABAPENTIN 100 MG CAPSULE 200 MG PO ×3 (08:46→21:31)
[2023-07-25] MEDS: PANTOPRAZOLE DR 20 MG TABLET PO ×2 (08:46→21:31)
[2023-07-25] MEDS: POTASSIUM CHLORIDE 20 MEQ TAB 40 MEQ PO ×2 (09:38→17:09)
--- NOTE | 2023-07-25 11:54 | PM.PN.1 ---
Subjective Subjective Date Patient Seen: 07/25/23 Time Patient Seen: 11:54 Interval history: cc: aspiration pneumonia Feeling better today on one day of iv abx Hx of severe scoliosis Up to bathroom to pee ok poor appetite for breakfast Exam Vital Signs (past 8 hours): - 07/25/23 04:23 07/25/23 07:00 07/25/23 08:08 Temperature 97.4 F L 97.8 F Pulse Rate 46 L 46 L Respiratory Rate 17 18 Blood Pressure 108/56 L 111/63 Pulse Oximetry 93 96 96 Oxygen Delivery Method Room Air Oxygen Flow Rate 0 0 07/25/23 08:46 Temperature Pulse Rate 56 L Respiratory Rate Blood Pressure 111/63 Pulse Oximetry Oxygen Delivery Method Oxygen Flow Rate Oxygen Delivery Method Room Air Oxygen Flow Rate 0 Narrative Exam Narrative: alert laying in bed no distress Const Other: well developed well nourished HENMT Other: NC/AT Resp Other: prominent crackles and rhonchi, R>L Cardio Other: regular rate and rhythm, no pedal edema GI Other: soft nontender active bowel sounds Neuro Other: AAOx4, CN2-12 grossly intact Extrem Other: moving all limbs Objective Labs 07/25/23 06:00 07/25/23 06:00 Labs: Laboratory Results - last 24 hr 07/25/23 06:00 WBC 6.3 RBC 4.16 L Hgb 10.9 L Hct 32.9 L MCV 79.1 L MCH 26.1 MCHC 33.0 RDW 18.0 H Plt Count 198 Neut % (Auto) 72.3 Lymph % (Auto) 19.0 L [place] % (Auto) 6.9 Eos % (Auto) 1.5 L Baso % (Auto) 0.3 Neut # (Auto) 4600 Lymph # (Auto) 1200 [place] # (Auto) 400 Eos # (Auto) 100 Baso # (Auto) 0 Sodium 135 L Potassium 3.1 L Chloride 103 Carbon Dioxide 28 BUN 16 Creatinine 0.85 Estimated GFR > 60 BUN/Creatinine Ratio 18.8 Glucose 108 Calcium 8.2 L Total Bilirubin 0.7 AST 21 ALT 16 Alkaline Phosphatase 46 Total Protein 6.9 Albumin 3.6 Globulin 3.3 Albumin/Globulin Ratio 1.1 PFS Medical History Chronic pain syndrome Status post lumbar spinal arthrodesis Hiatal hernia Shortness of breath Chronic pain Aspiration pneumonia due to gastric secretions Obstructive sleep apnea of adult Snoring Scoliosis deformity of spine Surgical History Status post thoracic spinal fusion H/O knee surgery History of cholecystectomy History of lumbar fusion Family History Father Congestive heart failure Liver disease Mother Heart disease Social History marital status: details: raghu Velez, lives in [place] household members: spouse lives independently: Yes caregiver/support person: No housing: house education level: college occupational status: employed current occupational exposures/hazards: Yes (asbestos, silica, other particulates) 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 Likely 2/2 his hx of severe scoliosis throwing food down the L main bronchus. Doing well on unasyn maybe switch to orals tomorrow. Some crackles noted will give some lasix too with incentive spirometer. Patient understands questions answered will continue O2 as needed. (not needing) #Reflux stable continue home PPI #Chronic back pain due to severe scoliosis status post surgery stable on usual methadone. Will follow. #Hypertension Stable continue home meds #chronic constipation 2/2 opiate use continue home regimen of dulcolax and senna Code status: full Disposition: possible home on orals tomorrow is improved PCP: Leigh Ann Olmedo
[2023-07-25] MEDS: FUROSEMIDE 40 MG/4 ML VIAL IV (12:13)
[2023-07-25] MEDS: SENNOSIDES 8.6 MG TABLET 17.2 MG PO ×2 (12:14→21:29)
[2023-07-25] MEDS: BISACODYL 5 MG TABLET 10 MG PO (12:14)
--- NOTE | 2023-07-25 13:00 | CM.DANOTE ---
Addendum entered by HOANG Lema 07/25/23 15:18: ADD: According to Dr Howard, Public health has cleared this patient for safe discharge back to the community Original Note: Initial DCP Assessment Note Pt is a 63 yo male, resident [facility], arrives with shortness of breath, patient with recurrent aspiration pneumonia, hx scoliosis and suspected food traveling down to the lung. PCP: Jameson Olmedo Payer: [facility] out of [facility] Reviewed chart, pt discussed with provider this morning. Patient is indp with all ADLs and in the room. Discharge home w/family with close outpatient follow up is anticipated. No barriers identified at this time to patient's safe discharge home w/family to assist; close outpatient f/u recommended. CM team will plan to follow closely in case any DC needs or concerns arise. HOANG Diaz Discharge Planning/Care Management CM Discharge Assessment Start: 07/25/23 12:57 Freq: Status: Active Protocol: Document 07/25/23 12:57 CHARLY (Rec: 07/25/23 12:59 CHARLY [id number]) Discharge Planning Assessment Assigned Care Trainer HOANG Pereira DPOA/Assigned Designee Name Rosie Coats, spouse Contact Information [phone] Advance Directives? Yes Advance Directives on File No History Provided By Patient,Medical Record Prior Living Arrangements House Household Members spouse Type of transporation used prior to Drives own vehicle admit Independent with ADL's Yes Is patient alert and oriented? Yes Needs Assistance With Meal Prep Barriers to Discharge No Comment Home w/spouse Discharge Plan Home Transportation Arrangement Spouse Referrals Initiated None needed
[2023-07-25] MEDS: MIRTAZAPINE 15 MG TABLET PO (21:31)
[2023-07-25] MEDS: DULOXETINE 20 MG CAPSULE 40 MG PO (21:31)
[2023-07-25] MEDS: FLUTICASONE 120 SPRAY/16 GM SPRAY.SUSP NASAL (21:32)
[2023-07-26] MEDS: AMPICILLIN/SULBACTAM 3 GM 3 GM in SODIUM CHLORIDE 0.9% 100 ML IV ×2 (03:37→09:14)
[2023-07-26 05:33] LABS: BUN Creatinine Ratio 12.1 (6-22); Blood Urea Nitrogen 12 mg/dL (9-20); Calcium 8.7 mg/dL (8.4-10.2); Carbon Dioxide 29 mmol/L (22-32); Chloride 104 mmol/L (98-107); Estimated Glomerular Filt Rate > 60 mL/min (>60); Glucose 118 mg/dL (80-110); HEMOLYSIS < 15 (0-50); Potassium 3.3 mmol/L (3.4-5.1); Sodium 138 mmol/L (137-145)
[2023-07-26 07:33] VITALS: O2SAT 94
[2023-07-26 07:34] LABS: Add Manual Diff / Slide Review NO; Basophils Absolute Auto 0 /uL (0-100); Basophils Percent Auto 0.5 % (0-2); Eosinophils Absolute Auto 200 /uL (0-450); Eosinophils Percent Auto 2.9 % (2-4); Hematocrit 36.2 % (41-53); Hemoglobin 11.8 g/dL (13.5-17.5); Lymphocytes Absolute Auto 1400 /uL (1100-4500); Lymphocytes Percent Auto 23.2 % (25-40); Mean Corpuscular HGB Conc 32.6 % (30-36); Mean Corpuscular Volume 79.6 fL (80-100); Monocytes Absolute Auto 500 /uL (0-900); Monocytes Percent Auto 7.9 % (3-14); Neutrophils Absolute Auto 4000 /uL (1500-7000); Neutrophils Percent Auto 65.5 % (50-75); Platelet Count 205 X10^3/uL (150-400); Red Blood Cell Count 4.55 X10^6/uL (4.5-5.9); Red Cell Distribution Width 17.8 % (11.6-14.8)
[2023-07-26 07:58] VITALS: BP 112/73; PULSE 51
[2023-07-26] MEDS: hydroCHLOROthiazide 25 MG TABLET PO (08:07)
[2023-07-26] MEDS: POTASSIUM CHLORIDE 20 MEQ TAB 40 MEQ PO (08:08)
[2023-07-26] MEDS: GABAPENTIN 100 MG CAPSULE 200 MG PO (08:09)
[2023-07-26] MEDS: METHADONE 10 MG TABLET 20 MG PO (08:09)
[2023-07-26] MEDS: SENNOSIDES 8.6 MG TABLET 17.2 MG PO (08:09)
[2023-07-26] MEDS: BISACODYL 5 MG TABLET 10 MG PO (08:09)
[2023-07-26] MEDS: PANTOPRAZOLE DR 20 MG TABLET PO (08:09)
[2023-07-26] MEDS: lisinopriL 20 MG TABLET PO (08:09)
--- NOTE | 2023-07-26 08:10 | P.DS_ITS ---
History of Present Illness History of Present Illness Chief complaint: sob, low oxy level Narrative: Patient is a 63-year-old male well known to me who has a history of recurrent aspiration pneumonias who presents with acute onset shortness of breath. Patient was feeling maybe a little heaviness yesterday. Had typhoid last night. Did not feel like he had any issue maybe a little bit increased heartburn and then woke up this morning with shortness of breath. Middle of the night. Just could not feel like he was getting his breath but like his pulse ox was low. Has had this before. Coughing with productive sputum. No nausea no vomiting. No other changes. He has otherwise had no burning with urination change in bowel movements. Prior to yesterday he was feeling great. Getting a lot done around the house. And had not had any issues. Patient has had multiple episodes last requiring admission was a year ago. He has had several episodes at least 2 over the last year treated as an outpatient. Otherwise no change. Discharge Providers Provider Date of admission: 07/24/23 06:33 Discharge Date: 07/26/23 Primary care physician: Jameson Olmedo MD Discharge provider: Jameson Olmedo MD Summary Hospital Course Discharge Diagnosis: Left-sided aspiration pneumonia Respiratory failure acute Reflux Chronic back pain due to scoliosis Hypertension Chronic constipation Hospital Course: Left-sided aspiration pneumonia. Patient with history of recurrent pneumonia. Acutely develops. With no other changes. Patient placed on Unasyn. And responded well. No culture result but otherwise doing well. Slowly has improved over the last 48 hours and now back to his normal self. Still has some mild changes in the left base. But otherwise clear. Will switch to Augmentin and follow-up. Patient had a swallowing study which did not show any evidence of significant aspiration. So the question is whether he is refluxing. Will need to see roller coaster designer as outpatient. Will also have CT scan with history of recurrent pneumonia. We will do that after 2-3 weeks and hopefully most of the pneumonia is cleared up. He understands questions answered. Acute respiratory failure. Patient was requiring 2 L on initial presentation. Over the course of the admission he slowly improved and was off in 24 hours. Doing well now. Maintaining pulse ox stable. This is all secondary to his pneumonia. With no other changes. Reflux. Maybe cause of his recurrent pneumonia it is unclear. Will need to see roller coaster designer as outpatient. Will continue PPI. Was otherwise stable. Chronic back pain. Secondary to scoliosis and previous surgery. Longstanding. Did well on his usual medicines will go home on nose. Hypertension. No issue during admission will follow. Chronic constipation. Stable. 40 minutes spent with the patient dictation orders Exam Vital Signs (past 8 hours): - 07/26/23 07:33 07/26/23 07:33 07/26/23 07:58 Pulse Rate 51 L Blood Pressure 112/73 Pulse Oximetry 94 Oxygen Delivery Method Room Air Room Air Oxygen Delivery Method Room Air Oxygen Flow Rate 0 Narrative Exam Narrative: Alert male in no acute distress much less fatigued Lungs left basilar mild crackles improved heart regular rate and rhythm Objective Labs 07/26/23 04:22 07/26/23 04:22 Labs: Laboratory Results - last 24 hr 07/26/23 04:22 WBC 6.0 RBC 4.55 Hgb 11.8 L Hct 36.2 L MCV 79.6 L MCH 26.0 MCHC 32.6 RDW 17.8 H Plt Count 205 Neut % (Auto) 65.5 Lymph % (Auto) 23.2 L [place] % (Auto) 7.9 Eos % (Auto) 2.9 Baso % (Auto) 0.5 Neut # (Auto) 4000 Lymph # (Auto) 1400 [place] # (Auto) 500 Eos # (Auto) 200 Baso # (Auto) 0 Sodium 138 Potassium 3.3 L Chloride 104 Carbon Dioxide 29 BUN 12 Creatinine 0.99 Estimated GFR > 60 BUN/Creatinine Ratio 12.1 Glucose 118 H Calcium 8.7 PFSH Medical History Chronic pain syndrome Status post lumbar spinal arthrodesis Hiatal hernia Shortness of breath Chronic pain Aspiration pneumonia due to gastric secretions Obstructive sleep apnea of adult Snoring Scoliosis deformity of spine Surgical History Status post thoracic spinal fusion H/O knee surgery History of cholecystectomy History of lumbar fusion Family History Father Congestive heart failure Liver disease Mother Heart disease Social History marital status: details: raghu Velez, lives in [place] household members: spouse lives independently: Yes caregiver/support person: No housing: house education level: college occupational status: employed current occupational exposures/hazards: Yes (asbestos, silica, other particulates) 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 Smoking Status: Former smoker alcohol intake: former substance use type: does not use Discharge Plan Discharge Plan Patient Disposition: Home Provider Discharge Comment: Improved Discharge orders & Medications Prescriptions: New amoxicillin-pot clavulanate [Augmentin] 500-125 mg tablet 1 tab PO BID Qty: 20 0RF Continued fluticasone propionate 16 GM spray,suspension 1 spray Intranasal BEDTIME Qty: 0 duloxetine 40 mg Capsule,Delayed Release(Dr/Ec) 40 mg PO BEDTIME gabapentin 100 mg Capsule 200 mg PO TID mirtazapine 15 mg tablet 15 mg PO ONCE PM lisinopril 20 mg tablet 20 mg PO BID tizanidine 4 mg tablet 4 mg PO BID PRN (Reason: muscle spasms) Patient Comments: take 1 tablet by mouth at bedtime if needed for muscle spasm oxycodone 20 mg tablet 20 mg PO Q4HR Patient Comments: take 1 tablet by mouth every 4 hours NEEDED FOR PAIN maximum daily dose of 6 methadone 10 mg tablet 20 mg PO Q4H Patient Comments: take 1 tablet by mouth q8hr day omeprazole 20 mg capsule,delayed release(DR/EC) 20 mg PO BID hydrochlorothiazide 25 mg tablet 25 mg PO BID testosterone cypionate 200 mg/mL oil 200 mg IM QMONTH (DME) Respironics BIPAP AutoSV Advanced Qty: 1 Dose Instruction: As directed Patient Comments: Pressure: 6-15 cmH2O DME: Rx Instructions: As directed Follow up/Referrals: Jameson Olmedo MD [Primary Care Provider] - 3-5 Days (Please call for appointment) Activity Restrictions/Additional Instructions: As tolerated Discharge Health Status Multidrug resistant organism: No MDRO Diet/Activity/Treatments Diet: Diet as Tolerated Visit Report/Discharge Packet Stand Alone Forms: Patient Portal/API, Stroke Signs & Symptoms Discharge Data Primary Care Provider: Jameson Olmedo
== END 2023-07-26 13:00 | disposition home or self-care (01) | DRG 871 ==
LOC: ED 06:32 → AC 06:34
PROVIDERS: Admitting Provider Family Medicine; Emergency Provider Emergency Medicine; Family Provider Family Medicine; PCP Family Medicine; Referring Provider Emergency Medicine; Visit Provider Family Medicine
DX: A41.9 Sepsis, unspecified organism (principal); J69.0 Pneumonitis due to inhalation of food and vomit; J96.01 Acute respiratory failure with hypoxia; K21.9 Gastro-esophageal reflux disease without esophagitis; M41.9 Scoliosis, unspecified; I10 Essential (primary) hypertension; K59.09 Other constipation; G47.33 Obstructive sleep apnea (adult) (pediatric); Z87.891 Personal history of nicotine dependence
CPT/HCPCS: 36415; 71045; 74230; 80048; 80053; 81001; 82550; 83605; 83880; 84145; 84484; 85025; 87040; 87633; 92611; 93005; 96365; 99285; J0295; J1650; J1940; J2543

== ENCOUNTER → 2023-08-20 12:09 | Outpatient (CLI) | payer BC, SELFPAY ==
[2023-07-24 08:00] VITALS: BMI 25.1
--- NOTE | 2023-08-20 12:10 | DI.CT.S_ITS ---
PROCEDURE: CT CHEST W CON INDICATIONS: RECURRENT ASPIRATION PNEUMONIA TECHNIQUE: After the administration of intravenous contrast, 5 mm thick sections acquired from the pulmonary apices to the posterior costophrenic angles. 1 mm axial lung, 5 mm thick coronal and sagittal reformats and 7 mm axial MIP were acquired. For radiation dose reduction, the following was used: automated exposure control, adjustment of mA and/or kV according to patient size. COMPARISON: [facility], CT, CT CHEST WO CON, 03/07/2023, 12:24. FINDINGS: Image quality: Diagnostic. Lower Neck: No enlarged lymph nodes. Thyroid: Normal CT appearance. Axillae: No enlarged lymph nodes. Chest Wall: No suspicious masses. Bones: There is prominent scoliosis and Vega rods throughout the thoracic and visible lumbar spine.. Lungs and Pleura: Mixed interstitial and alveolar opacity in the posterior left lower lobe and mild scarring at the right lateral lung base. Interval clearance of previously seen scattered ground-glass opacities bilaterally. Small residual ground-glass nodules centrally at the right lung base, series 3, image 207 and 208. No suspicious new solid nodule, consolidation, or pleural effusion. Central and peripheral airways are normal without bronchial wall thickening or bronchiectasis. Heart: Heart size is normal. No pericardial effusion. Thoracic Vessels: The aorta and pulmonary arteries demonstrate normal size. Mediastinum and Taya: Nonenlarged prevascular and right hilar lymph nodes appear to be chronic. No new adenopathy. Esophagus: Thin-walled esophagus is diffusely dilated and filled with fluid from the proximal to distal portion. There is a moderate size hiatal hernia. Upper Abdomen: Cholecystectomy clips. Visible portions of upper abdominal organs are otherwise normal. IMPRESSION: Fluid-filled esophagus and moderate-sized hiatal hernia are chronic and predispose the patient to aspiration. Residual mixed interstitial and alveolar opacity in the posterior left lower lung. Interval clearance of other ground-glass opacities elsewhere. Chronic mediastinal and hilar reactive lymph nodes. Dictated by: Marry Calvo M.D. on 08/20/2023 at 16:01 Approved by: Marry Calvo M.D. on 08/20/2023 at 16:13
== END ==
LOC: CT 12:10
PROVIDERS: PCP Family Medicine; Referring Provider Family Medicine; Visit Provider Family Medicine
DX: J69.0 Pneumonitis due to inhalation of food and vomit (principal); K44.9 Diaphragmatic hernia without obstruction or gangrene
CPT/HCPCS: 71260; Q9967

== ENCOUNTER 2023-12-08 09:19 | Emergency (ER) | payer BC, SELFPAY ==
[2023-07-24 08:00] VITALS: BMI 25.1
[2023-12-08 09:31] VITALS: BP 154/79; PULSE 63; RESP 18; TEMP 36.9; O2SAT 95; BMI 25.7
--- NOTE | 2023-12-08 09:35 | DI.RAD.S_ITS ---
PROCEDURE: XR CHEST 2V INDICATIONS: SOB TECHNIQUE: 2 views of the chest were acquired. COMPARISON: [facility], CT, CT CHEST W CON, 08/20/2023, 12:29. [facility], CR, XR CHEST 1V, 07/24/2023, 5:55. FINDINGS: Surgical changes and devices: Extensive posterior thoracolumbar fusion hardware. Cholecystectomy clips. Lungs and pleura: Left lower lobe patchy consolidation. No pleural effusions or pneumothorax. Mediastinum: Mediastinal contours are normal. Heart size is normal. Moderate sized hiatal hernia is better seen on CT chest dated August 20, 2023. Bones and chest wall: No suspicious bony abnormalities. Soft tissues appear unremarkable. Dextroconvex curvature of the thoracic spine. IMPRESSION: 1. Left lower lobe patchy consolidation suggestive of atelectasis, aspiration and/or pneumonia. Recommend radiographic follow-up after appropriate treatment to document resolution. 2. Moderate sized hiatal hernia is better seen on CT chest dated August 20, 2023. Dictated by: Cleo Cohn M.D. on 12/08/2023 at 9:11 Approved by: Cleo Cohn M.D. on 12/08/2023 at 9:14
--- NOTE | 2023-12-08 09:37 | ED.SOB ---
HPI - SOB/Dyspnea General Chief Complaint: Shortness of Breath/Dyspnea Stated Complaint: SoB, Cough, Suspects Pneumonia Time Seen by Provider: 12/08/23 09:21 Source: patient, RN notes reviewed and old records reviewed Mode of arrival: Ambulatory Limitations: no limitations History of Present Illness HPI Narrative: 63-year-old male history of hypertension, dyslipidemia, chronic pain with prior lumbar and thoracic fusion with Vega rods that broke and then were redone. Patient presents with complaint of shortness of breath and concern for pneumonia. Patient states he has had some aspiration in the past. No fevers but has felt sick and chilled. Little bit of congestion mild headache. He denies any chest pain or pressure he has felt a little bit more short of breath for the past 24 hours and overnight. Denies any orthopnea. He denies any nausea or vomiting. No diarrhea constipation. He has had a cough with some white productive sputum which he states is not atypical. Patient states no hemoptysis. No new swelling of extremities. No urinary symptoms. Patient states he was on amoxicillin about 2 weeks ago for potential pneumonia from his primary care physician. Patient states he takes medications for blood pressure. Patient states prior back surgeries about 4 years ago with lumbar and thoracic fusion with rods, some point some of the broke and were replaced. He states he is still has 1 grant that is broken but he is fused. Does have allergies to tamsulosin bupropion PN and statins. Former smoker, no regular alcohol, no recreational drugs or IV drugs. Dr. Olmedo is his primary care physician. Related Data Home Medications Medication Instructions Recorded Confirmed fluticasone propionate 50 1 spray intranasal BEDTIME ##0 04/22/16 07/24/23 mcg/actuation nasal spray,suspension Respironics BIPAP AutoSV Advanced #1 ea 05/13/18 07/24/23 hydrochlorothiazide 25 mg tablet 25 mg PO BID 08/16/21 07/24/23 lisinopril 20 mg tablet 20 mg PO BID 08/16/21 07/24/23 methadone 10 mg tablet 20 mg PO Q4H 08/16/21 07/24/23 omeprazole 20 mg capsule,delayed 20 mg PO BID 08/16/21 07/24/23 release oxycodone 20 mg tablet 20 mg PO Q4HR 08/16/21 07/24/23 testosterone cypionate 200 mg/mL 200 mg IM QMONTH 08/16/21 07/24/23 intramuscular oil tizanidine 4 mg tablet 4 mg PO BID PRN muscle spasms 08/16/21 07/24/23 duloxetine 40 mg capsule,delayed 40 mg PO BEDTIME 05/17/22 07/24/23 release gabapentin 100 mg capsule 200 mg PO TID 05/17/22 07/24/23 mirtazapine 15 mg tablet 15 mg PO ONCE PM 07/24/23 07/24/23 Previous Rx's Medication Instructions Recorded amoxicillin 500 mg-potassium 1 tab PO BID #20 tabs 07/26/23 clavulanate 125 mg tablet (Augmentin) levofloxacin 750 mg tablet 750 mg PO DAILY 7 days #7 tabs 12/08/23 Allergies Allergy/AdvReac Type Severity Reaction Status Date / Time tamsulosin [From Flomax] Allergy Intermediate Irritable Verified 01/12/23 10:02 bupropion [From WELLBUTRIN] Allergy Mild rash/nausea Verified 01/12/23 10:02 Aomhkqo-[id number]-TxP Reductase AdvReac Unknown CHARLEY Verified 01/12/23 10:02 Inhibitor HORSES IN [RAXFOAO-ZVP-TBS REDUCTASE LEGS INHIBITOR] Review of Systems Review of Systems ROS Unobtainable: All systems reviewed & are unremarkable except as noted in HPI and below Patient History Medical History Chronic pain syndrome Status post lumbar spinal arthrodesis Hiatal hernia Shortness of breath Chronic pain Aspiration pneumonia due to gastric secretions Obstructive sleep apnea of adult Snoring Scoliosis deformity of spine Surgical History Status post thoracic spinal fusion H/O knee surgery History of cholecystectomy History of lumbar fusion Family History Father Congestive heart failure Liver disease Mother Heart disease Social History marital status: details: raghu Velez, lives in [place] household members: spouse lives independently: Yes caregiver/support person: No housing: house education level: college occupational status: employed current occupational exposures/hazards: Yes (asbestos, silica, other particulates) 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 No JVD. No edema bilateral lower extremities. RESPIRATORY: Breath sounds equal bilaterally, no wheezes rales or rhonchi. No tachypnea or accessory muscle use. ABDOMEN: Soft, nontender. Normoactive bowel sounds all 4 quadrants. No guarding or rebound, rigidity, no mass : No CVA tenderness Back: Patient has healed incisions along his back consistent with prior surgeries. No warmth erythema or skin changes. EXTREMITIES: Normal range of motion, no clubbing or edema. Neurovascularly intact NEUROLOGICAL: Cranial nerves II through XII grossly intact. Moving all extremities SKIN: Warm, dry, no petechiae, no rashes or lesions. Initial Vital Signs Initial Vital Signs: Vital Signs Temperature 98.5 F 12/08/23 09:31 Pulse Rate 63 12/08/23 09:31 Respiratory Rate 18 12/08/23 09:31 Blood Pressure 154/79 H 12/08/23 09:31 Pulse Oximetry 95 12/08/23 09:31 Oxygen Delivery Method Room Air 12/08/23 09:31 Course Orders Ordered: ED Orders 12/08/23 09:35 Chest [XR chest 2V] Stat Respiratory Panel (Film Array) Stat Vital Signs Vital signs: Vital Signs - 8 hr 12/08/23 10:53 Pulse Rate 80 Respiratory Rate 18 Pulse Oximetry 97 Oxygen Delivery Method Room Air MDM - SOB/Dyspnea Lab Data Labs: Lab Results 12/08/23 Range/Units 09:35 Chlamy pneumoniae PCR Not detected (Not Detect) Adenovirus (PCR) Not detected (Not Detect) B.parapertussis DNA PCR Not detected (Not Detecte) Coronavirus OC43 (PCR) Not detected (Not Detect) Coronavirus HKU1 (PCR) Not detected (Not Detect) Coronavirus 229E (PCR) Not detected (Not Detect) SARS-CoV-2 (PCR) Not detected (Not Detecte) Coronavirus NL63 (PCR) Not detected (Not Detect) Human Metapneumovir PCR Not detected (Not Detect) Influenza Type A (PCR) Not detected (Not Detect) Influenza Type B (PCR) Not detected (Not Detect) M. pneumoniae (PCR) Not detected (Not Detect) Parainfluenza 1 (PCR) Not detected (Not Detect) Parainfluenza 2 (PCR) Not detected (Not Detect) Parainfluenza 3 (PCR) Not detected (Not Detect) Parainfluenza 4 (PCR) Not detected (Not Detect) RSV (PCR) Not detected (Not Detect) Entero/Rhino (PCR) Not detected (Not Detect) MDM Narrative Medical decision making narrative: Well-appearing 63-year-old male who states he has felt a little bit more short of breath with cough congestion headache for the past 24 hours. Vitals are overall appropriate. Patient states he has had some aspiration in the past. Lungs are clear initially on examination he does not appear to be fluid overloaded. Plan for chest x-ray and respiratory panel. Respiratory panel is negative, chest x-ray shows changes on the left side consistent with possible pneumonia. CT of the chest does show changes in the posterior left lower lung reviewed these findings from 08/20/2023. Patient and I discussed the need for follow-up with primary care for repeat imaging to make sure this resolves or possibly pulmonology if it is not improving over time. We discussed typically aspiration pneumonia tends to be on the right although could possibly be on the left. He states his pneumonias have typically been on the left side. States in the past he has had amoxicillin and Bactrim but is open to trying on alternative medication we will give Levaquin. Discussed return precautions and need for follow-up. Discharge Plan Departure Patient Disposition: Home Clinical Impression: Pneumonia Instructions: DI for Pneumonia -- Adult Activity Restrictions/Additional Instructions: Follow up with your physician for recheck, your imaging today does seem consistent with a left lower lobe pneumonia. Please follow up with your physician in the next 6-8 weeks to make sure changes have resolved on your imaging. Your respiratory panel was negative Take oral antibiotics until completed. [facility]. Please return for fevers, increasing chest pain or shortness of breath, coughing up blood, new swelling in extremities, lightheadedness or passing out or other new or concerning changes. Prescriptions: New levofloxacin 750 mg tablet 750 mg PO DAILY 7 Days Qty: 7 0RF No Action fluticasone propionate 16 GM spray,suspension 1 spray Intranasal BEDTIME Qty: 0 duloxetine 40 mg Capsule,Delayed Release(Dr/Ec) 40 mg PO BEDTIME gabapentin 100 mg Capsule 200 mg PO TID mirtazapine 15 mg tablet 15 mg PO ONCE PM amoxicillin-pot clavulanate [Augmentin] 500-125 mg tablet 1 tab PO BID Qty: 20 0RF lisinopril 20 mg tablet 20 mg PO BID tizanidine 4 mg tablet 4 mg PO BID PRN (Reason: muscle spasms) Patient Comments: take 1 tablet by mouth at bedtime if needed for muscle spasm oxycodone 20 mg tablet 20 mg PO Q4HR Patient Comments: take 1 tablet by mouth every 4 hours NEEDED FOR PAIN maximum daily dose of 6 methadone 10 mg tablet 20 mg PO Q4H Patient Comments: take 1 tablet by mouth q8hr day omeprazole 20 mg capsule,delayed release(DR/EC) 20 mg PO BID hydrochlorothiazide 25 mg tablet 25 mg PO BID testosterone cypionate 200 mg/mL oil 200 mg IM QMONTH (DME) Respironics BIPAP AutoSV Advanced Qty: 1 Dose Instruction: As directed Patient Comments: Pressure: 6-15 cmH2O DME: Rx Instructions: As directed Referrals: Jameson Olmedo MD [Primary Care Provider] - Stand Alone Forms: Patient Portal/API
[2023-12-08 10:38] LABS: Adenovirus Not Detected (Not Detect); B. parapertussis Not Detected (Not Detecte); Bordetella pertussis Not Detected (Not Detect); Chlamydophila pneumoniae Not Detected (Not Detect); Coronavirus 229E Not Detected (Not Detect); Coronavirus HKU1 Not Detected (Not Detect); Coronavirus NL 63 Not Detected (Not Detect); Coronavirus OC43 Not Detected (Not Detect); Human Metapneumovirus Not Detected (Not Detect); Human Rhinovirus/Enterovirus Not Detected (Not Detect); Influenza A Not Detected (Not Detect); Influenza B Not Detected (Not Detect); Mycoplasma pneumoniae Not Detected (Not Detect); Parainfluenza Virus 1 Not Detected (Not Detect); Parainfluenza Virus 2 Not Detected (Not Detect); Parainfluenza Virus 3 Not Detected (Not Detect); Parainfluenza Virus 4 Not Detected (Not Detect); Respiratory Syncytial Virus Not Detected (Not Detect); SARS- CoV-2 Not Detected (Not Detecte)
[2023-12-08 10:53] VITALS: PULSE 80; RESP 18; O2SAT 97
== END 2023-12-08 10:53 | disposition home or self-care (01) ==
PROVIDERS: Emergency Provider Emergency Medicine; PCP Family Medicine
DX: J18.9 Pneumonia, unspecified organism (principal); Z79.899 Other long term (current) drug therapy; Z11.52 Encounter for screening for COVID-19
CPT/HCPCS: 71046; 87633; 99281; 99283

== ENCOUNTER → 2024-01-23 12:20 | Outpatient (ROUT) | payer BC, SELFPAY ==
[2023-07-24 08:00] VITALS: BMI 25.1
[2024-01-23 13:05] LABS: COVID-19 CEPHEID 4-PLEX PCR Negative (Negative); Influenza A - CEPHEID Flu A NEGATIVE (NEGATIVE); Influenza B - CEPHEID Flu B NEGATIVE (NEGATIVE); Respiratory Syncytial Virus Negative (Negative)
== END ==
PROVIDERS: PCP Family Medicine; Visit Provider Registered Nurse
DX: R05.1 Acute cough (principal)
CPT/HCPCS: 0241U

== ENCOUNTER → 2024-02-13 12:49 | Outpatient (CLI) | payer BC, SELFPAY ==
[2023-07-24 08:00] VITALS: BMI 25.1
--- NOTE | 2024-02-13 12:52 | DI.RAD.S_ITS ---
PROCEDURE: XR CHEST 2V INDICATIONS: PNEUMONIA TECHNIQUE: 2 views of the chest were acquired. COMPARISON: [facility], CR, XR CHEST 2 VIEWS, 05/29/2023, 19:24. [facility], CR, XR CHEST 2V, 12/08/2023, 9:36. FINDINGS: Heart, mediastinum and pulmonary vascular: Heart is normal in size and configuration. Mediastinum is unremarkable. Pulmonary vascular is normal. Lungs: Vaguely increased density in the right lung on the frontal view is likely reflective of posterior pleural plaque seen on lateral view. Small posterior medial left lower lobe pneumonia is improved Pleural spaces: Normal-no effusions or pneumothorax. Bones and soft tissues: Normal IMPRESSION: Improvement in posterior left lower lobe pneumonia now small. Posterior right pleural plaque versus loculated effusion. Dictated by: Johnathan Jolly M.D. on 02/14/2024 at 9:26 Approved by: Johnathan Jolly M.D. on 02/14/2024 at 9:28
== END ==
PROVIDERS: PCP Family Medicine
DX: J69.0 Pneumonitis due to inhalation of food and vomit (principal); R05.1 Acute cough
CPT/HCPCS: 71046

== ENCOUNTER 2024-02-29 12:34 | Emergency (ER) | payer BC, SELFPAY ==
[2023-07-24 08:00] VITALS: BMI 25.1
[2024-02-29] VITALS (10 sets, daily range): BP systolic 127–156; BP diastolic 70–88; PULSE 51–62; RESP 12–23; TEMP 37.4; O2SAT 91–97; BMI 27.2
--- NOTE | 2024-02-29 12:53 | DI.RAD.S_ITS ---
PROCEDURE: XR CHEST 1V INDICATIONS: Shortness of breath TECHNIQUE: One view of the chest was acquired. COMPARISON: [facility], CR, XR CHEST 1V, 07/24/2023, 5:55. [facility], CR, XR CHEST 2V, 02/13/2024, 12:55. FINDINGS: Surgical changes and devices: Partially imaged long segment thoracolumbar fusion hardware. Lungs and pleura: Patchy left basilar opacities. Probable small left pleural effusion. No pneumothorax. Mediastinum: Mediastinal contours appear normal. Heart size is stable. Bones and chest wall: No suspicious bony lesions. Overlying soft tissues appear unremarkable. IMPRESSION: Patchy left lower lobe opacities may represent atelectasis versus focal airspace disease. Recommend follow up chest radiograph 4-6 weeks after treatment to document resolution of findings and/or return to baseline examination. Dictated by: Jose Núñez M.D. on 02/29/2024 at 13:53 Approved by: Jose Núñez M.D. on 02/29/2024 at 13:54
--- NOTE | 2024-02-29 13:00 | EKG_ITS ---
[facility] [address] [address] Test Date: 2024-02-29 Pat Name: Cole Coats Department: 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
[2024-02-29] MEDS: ALBUTEROL/IPRATROPIUM 3 ML AMPUL INH (13:30)
[2024-02-29 13:48] LABS: Add Manual Diff / Slide Review NO; Basophils Absolute Auto 0 /uL (0-100); Basophils Percent Auto 0.7 % (0-2); Eosinophils Absolute Auto 100 /uL (0-450); Eosinophils Percent Auto 1.2 % (2-4); Hematocrit 46.4 % (41-53); Hemoglobin 15.7 g/dL (13.5-17.5); Lymphocytes Absolute Auto 1000 /uL (1100-4500); Lymphocytes Percent Auto 19.9 % (25-40); Mean Corpuscular HGB Conc 33.9 % (30-36); Mean Corpuscular Hemoglobin 30.7 PG (26-34); Mean Corpuscular Volume 90.5 fL (80-100); Monocytes Absolute Auto 500 /uL (0-900); Monocytes Percent Auto 9.5 % (3-14); Neutrophils Absolute Auto 3400 /uL (1500-7000); Neutrophils Percent Auto 68.7 % (50-75); Platelet Count 184 X10^3/uL (150-400); Red Blood Cell Count 5.12 X10^6/uL (4.5-5.9); Red Cell Distribution Width 16.1 % (11.6-14.8)
[2024-02-29 13:53] LABS: Prothrombin Time 11.4 SECONDS (9.4-12.5)
[2024-02-29 13:57] LABS: Alanine Aminotransferase 22 IU/L (<50); Albumin 4.3 g/dL (3.5-5.0); Albumin Globulin Ratio 1.1 (1.0-2.8); Alkaline Phosphatase 51 U/L (38-126); Aspartate Aminotransferase 27 IU/L (17-59); BUN Creatinine Ratio 17.3 (6-22); Bilirubin Total 0.7 mg/dL (0.2-1.3); Blood Urea Nitrogen 17 mg/dL (9-20); Calcium 9.1 mg/dL (8.4-10.2); Carbon Dioxide 30 mmol/L (22-32); Chloride 97 mmol/L (98-107); Estimated Glomerular Filt Rate > 60 mL/min (>60); Glucose 128 mg/dL (80-110); HEMOLYSIS < 15 (0-50); Potassium 3.4 mmol/L (3.4-5.1); Sodium 134 mmol/L (137-145); Total Protein 8.3 g/dL (6.3-8.2)
[2024-02-29 13:58] LABS: Lactate (Lactic Acid) 1.7 mmol/L (0.7-2.1)
[2024-02-29 14:08] LABS: NT-proBNP (BNP-Adult 18+) < 20 pg/mL (<125); Troponin I < 0.012 ng/mL (0.01-0.034)
--- NOTE | 2024-02-29 15:01 | ED_ITS ---
HPI - SOB/Dyspnea General Chief Complaint: Shortness of Breath/Dyspnea Stated Complaint: SoB, Coughing Some Blood, Pneumonia Time Seen by Provider: 02/29/24 15:01 Source: patient Mode of arrival: Ambulatory Limitations: no limitations History of Present Illness HPI Narrative: patient is a 63-year-old male history of hypertension chronic pain, presents to the emergency department for complaints of cough shortness of breath and hemoptysis. States that he has had recurrent pneumonia over the past several months. States that he did take amoxicillin and took the entire course last dose was approximately 5 days ago. Does have a history of COPD as well But does not require supplemental oxygen at baseline. To note he does state that he has had thoughts of just quitting life given the fact that he is tired of having to deal with his chronic pain and now this recurrent pneumonia. He currently does not have any suicidal ideations or plan no homicidal ideations or plan. But we will have discussion with social work here to provide patient without patient resources. Related Data Home Medications Medication Instructions Recorded Confirmed fluticasone propionate 50 1 spray intranasal BEDTIME ##0 04/22/16 07/24/23 mcg/actuation nasal spray,suspension Respironics BIPAP AutoSV Advanced #1 ea 05/13/18 07/24/23 hydrochlorothiazide 25 mg tablet 25 mg PO BID 08/16/21 07/24/23 lisinopril 20 mg tablet 20 mg PO BID 08/16/21 07/24/23 methadone 10 mg tablet 20 mg PO Q4H 08/16/21 07/24/23 omeprazole 20 mg capsule,delayed 20 mg PO BID 08/16/21 07/24/23 release oxycodone 20 mg tablet 20 mg PO Q4HR 08/16/21 07/24/23 testosterone cypionate 200 mg/mL 200 mg IM QMONTH 08/16/21 07/24/23 intramuscular oil tizanidine 4 mg tablet 4 mg PO BID PRN muscle spasms 08/16/21 07/24/23 duloxetine 40 mg capsule,delayed 40 mg PO BEDTIME 05/17/22 07/24/23 release gabapentin 100 mg capsule 200 mg PO TID 05/17/22 07/24/23 mirtazapine 15 mg tablet 15 mg PO ONCE PM 07/24/23 07/24/23 Previous Rx's Medication Instructions Recorded amoxicillin 500 mg-potassium 1 tab PO BID #20 tabs 07/26/23 clavulanate 125 mg tablet (Augmentin) doxycycline hyclate 100 mg capsule 100 mg PO BID 5 days #10 caps 02/29/24 Allergies Allergy/AdvReac Type Severity Reaction Status Date / Time tamsulosin [From Flomax] Allergy Intermediate Irritable Verified 01/12/23 10:02 bupropion [From WELLBUTRIN] Allergy Mild rash/nausea Verified 01/12/23 10:02 Hwqboba-UTI-RsN Reductase AdvReac Unknown CHARLEY Verified 01/12/23 10:02 Inhibitor HORSES IN [ZUUKAPL-EXG-PWI REDUCTASE LEGS INHIBITOR] Review of Systems Review of Systems Narrative: General: Denies fever, chills, weight loss HEENT: Denies headache, eye drainage, eye irritation, head trauma, sore throat, voice change Cardiovascular: Denies any chest pain, palpitations, shortness of breath, tachycardia Respiratory: positive cough, shortness of breath, hemoptysis GI/: Denies any abdominal pain, nausea, vomiting, diarrhea, bright red blood per rectum, melanotic stools, urinary frequency, urinary retention, dysuria, hematuria MSK: Denies any joint pain, muscle pains, swelling Skin: Denies any rashes, lesions, discoloration Neuro: Denies any headache, lightheadedness, dizziness, fainting, weakness Psych: Denies SI/HI Patient History Medical History Chronic pain syndrome Status post lumbar spinal arthrodesis Hiatal hernia Shortness of breath Chronic pain Aspiration pneumonia due to gastric secretions Obstructive sleep apnea of adult Snoring Scoliosis deformity of spine Surgical History Status post thoracic spinal fusion H/O knee surgery History of cholecystectomy History of lumbar fusion Family History Father Congestive heart failure Liver disease Mother Heart disease Social History marital status: details: raghu Velez, lives in [place] household members: spouse lives independently: Yes caregiver/support person: No housing: house education level: college occupational status: employed current occupational exposures/hazards: Yes (asbestos, silica, other particulates) 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 Smoking Status: Former smoker alcohol intake: former substance use type: does not use Smoking Status: Former smoker tobacco type: cigarettes alcohol intake frequency: 0-2 drinks per day Substance Use Type: does not use Exam Narrative Exam Narrative: General: Cooperative, comfortable, well-developed, not in acute distress HEENT: Normocephalic, atraumatic, PERRLA, normal sclera, eyelids normal, Neck: Active full range of motion, atraumatic Chest: Normal to inspection, negative crepitus, no overlying erythema ecchymosis Respiratory: Normal respiratory effort, not in acute respiratory distress, clear to auscultation bilaterally negative cough, wheeze, tachypnea, rhonchi, rales Cardiology: Regular rate rhythm negative gallop, murmur, rubs GI/: Normal to inspection, soft, nonrigid, no tenderness to palpation, exam deferred MSK: Full range of active range of motion of all 4 extremities, atraumatic Skin: No rashes lesions noted Neuro: Alert awake oriented x3, moves all 4 extremities spontaneously, cranial nerves intact, able to answer all questions appropriately follows commands appropriately Psych: Cooperative, negative suicidal or homicidal ideations Initial Vital Signs Initial Vital Signs: Vital Signs Temperature 99.4 F 02/29/24 12:44 Pulse Rate 54 L 02/29/24 12:44 Respiratory Rate 18 02/29/24 12:44 Blood Pressure 150/78 H 02/29/24 12:44 Pulse Oximetry 95 02/29/24 12:44 Oxygen Delivery Method Room Air 02/29/24 12:44 Course Orders Ordered: ED Orders 02/29/24 12:53 XR chest 1V Stat EKG-12 Lead Stat Measure peak expiratory flow ONCE RT Consult Eval and Treat NOW 02/29/24 13:36 Complete Blood Count AUTO DIFF Stat Comprehensive Metabolic Panel Stat Lactate (Lactic Acid) Stat NT-proBNP (BNP-Adult 18+) Stat Prothrombin Time INR Stat Troponin I Stat 02/29/24 13:41 Consult to PLATE WASHER - Copper Plater Stat Discontinued Medications Albuterol/Ipratropium (Albuterol/Ipratropium 3 Ml Ampul) 3 ml INH NOW ONE Stop: 02/29/24 13:26 Last Admin: 02/29/24 13:30 Dose: 3 ml Documented By: SAT Doxycycline Hyclate (Doxycycline Hyclate 100 Mg Tablet) 100 mg PO NOW ONE Stop: 02/29/24 15:38 Vital Signs Vital signs: Vital Signs - 8 hr 02/29/24 12:44 02/29/24 13:38 02/29/24 14:29 Temperature 99.4 F Pulse Rate 54 L 53 L 56 L Respiratory Rate 18 18 23 Blood Pressure 150/78 H 133/77 Pulse Oximetry 95 97 94 Oxygen Delivery Method Room Air Room Air Room Air MDM - SOB/Dyspnea Differential Diagnosis Differential diagnosis: Likely community acquired pneumonia, asthma with exacerbation and other ( ACS,) Lab Data 02/29/24 13:36 02/29/24 13:36 Labs: Lab Results 02/29/24 Range/Units 13:36 WBC 5.0 (4.5-11.0) X10^3/uL RBC 5.12 (4.5-5.9) X10^6/uL Hgb 15.7 (13.5-17.5) g/dL Hct 46.4 (41-53) % MCV 90.5 (80-100) fL MCH 30.7 (26-34) PG MCHC 33.9 (30-36) % RDW 16.1 H (11.6-14.8) % Plt Count 184 (150-400) X10^3/uL Neut % (Auto) 68.7 (50-75) % Lymph % (Auto) 19.9 L (25-40) % [place] % (Auto) 9.5 (3-14) % Eos % (Auto) 1.2 L (2-4) % Baso % (Auto) 0.7 (0-2) % Neut # (Auto) 3400 (4301-9200) /uL Lymph # (Auto) 1000 L (8704-3770) /uL [place] # (Auto) 500 (0-900) /uL Eos # (Auto) 100 (0-450) /uL Baso # (Auto) 0 (0-100) /uL PT 11.4 (9.4-12.5) SECONDS INR 1.0 (0.9-1.3) Sodium 134 L (137-145) mmol/L Potassium 3.4 (3.4-5.1) mmol/L Chloride 97 L (98-107) mmol/L Carbon Dioxide 30 (22-32) mmol/L BUN 17 (9-20) mg/dL Creatinine 0.98 (0.66-1.25) mg/dL Estimated GFR > 60 (>60) mL/min BUN/Creatinine Ratio 17.3 (6-22) Glucose 128 H (80-110) mg/dL Lactate 1.7 (0.7-2.1) mmol/L Calcium 9.1 (8.4-10.2) mg/dL Total Bilirubin 0.7 (0.2-1.3) mg/dL AST 27 (17-59) IU/L ALT 22 (<50) IU/L Alkaline Phosphatase 51 (38-126) U/L Troponin I < 0.012 (0.01-0.034) ng/mL NT-Pro-B Natriuret Pep < 20 (<125) pg/mL Total Protein 8.3 H (6.3-8.2) g/dL Albumin 4.3 (3.5-5.0) g/dL Globulin 4.0 (1.7-4.1) g/dL Albumin/Globulin Ratio 1.1 (1.0-2.8) Imaging Data Chest x-ray: Radiologist's Impression: [address] [address] XRay Report Signed Patient: Cole Coats MR#: [id number] : 1960 Acct:[id number] Age/Sex: 63 / M Date of Service: 02/29/24 Loc: ED Accession Number: [id number] Procedure: XR chest 1V Ordering Provider: Brad Akers D.O. PROCEDURE: XR CHEST 1V INDICATIONS: Shortness of breath TECHNIQUE: One view of the chest was acquired. COMPARISON: [facility], CR, XR CHEST 1V, 07/24/2023, 5:55. [facility], CR, XR CHEST 2V, 02/13/2024, 12:55. FINDINGS: Surgical changes and devices: Partially imaged long segment thoracolumbar fusion hardware. Lungs and pleura: Patchy left basilar opacities. Probable small left pleural effusion. No pneumothorax. Mediastinum: Mediastinal contours appear normal. Heart size is stable. Bones and chest wall: No suspicious bony lesions. Overlying soft tissues appear unremarkable. IMPRESSION: Patchy left lower lobe opacities may represent atelectasis versus focal airspace disease. ECG Data Interpretation: EKG interpreted by ED physician sinus bradycardia at 53 beats per minute, QTC 4 1, normal axis, nonspecific ST changes, no STEMI MDM Narrative Medical decision making narrative: patient is a 63-year-old male history of chronic back pain due to scoliosis and multiple surgeries in the past presenting for cough shortness of breath hemoptysis ongoing persistent for the past several weeks to months, did complete a course of amoxicillin 5 days ago but has had persistent cough shortness of breath and today had small amount of hemoptysis therefore decided come into the ED for further evaluation treatment. EKG nonischemic, troponin negative, patient not requiring any supplemental oxygen, chest x-ray showing infiltrate consistent with pneumonia we will give antibiotics here. Patient did endorse some suicidal ideations but no active plan therefore did have patient evaluated by social work here did provide patient with outpatient resources he has currently not complaining of any suicidal homicidal ideations at this time, at bedside agrees with plan given here with social work. Patient was given strict return precautions will be safe for discharge home with outpatient follow up. Discharge Plan Departure Patient Disposition: Home Clinical Impression: Pneumonia Prescriptions: New doxycycline hyclate 100 mg capsule 100 mg PO BID 5 Days Qty: 10 0RF No Action fluticasone propionate 16 GM spray,suspension 1 spray Intranasal BEDTIME Qty: 0 duloxetine 40 mg Capsule,Delayed Release(Dr/Ec) 40 mg PO BEDTIME gabapentin 100 mg Capsule 200 mg PO TID mirtazapine 15 mg tablet 15 mg PO ONCE PM amoxicillin-pot clavulanate [Augmentin] 500-125 mg tablet 1 tab PO BID Qty: 20 0RF lisinopril 20 mg tablet 20 mg PO BID tizanidine 4 mg tablet 4 mg PO BID PRN (Reason: muscle spasms) Patient Comments: take 1 tablet by mouth at bedtime if needed for muscle spasm oxycodone 20 mg tablet 20 mg PO Q4HR Patient Comments: take 1 tablet by mouth every 4 hours NEEDED FOR PAIN maximum daily dose of 6 methadone 10 mg tablet 20 mg PO Q4H Patient Comments: take 1 tablet by mouth q8hr day omeprazole 20 mg capsule,delayed release(DR/EC) 20 mg PO BID hydrochlorothiazide 25 mg tablet 25 mg PO BID testosterone cypionate 200 mg/mL oil 200 mg IM QMONTH (DME) [employer] BIPAP AutoSV Advanced Qty: 1 Dose Instruction: As directed Patient Comments: Pressure: 6-15 cmH2O DME: Rx Instructions: As directed Referrals: Jameson Olmedo MD [Primary Care Provider] - Stand Alone Forms: Patient Portal/API/Survey
[2024-02-29] MEDS: DOXYCYCLINE HYCLATE 100 MG TABLET PO (15:45)
--- NOTE | 2024-02-29 16:52 | CM.SWNOTE ---
ED SHOP MECHANIC HELPER Note SHOP MECHANIC HELPER receives consult due to spouse's report to RN of patient's passive SI, patient does not report this in triage when asked. Patient denies intent or plan but patient endorses frustration and distress due to ongoing chronic pain and pain management post back surgeries over the last few years. Patient is 63 y/o male who presents to ED via POV with spouse due to concern for cough, SOB, pneumonia. Patient's PCP is Dr. Olmedo, patient endorses he sees pain management provider Dr. Schmitt in [place]. SHOP MECHANIC HELPER enters room to meet with patient, present in room is patient's spouse, patient gives consent for spouse to be present. Patient presents as A/Ox4, anxious/euthymic, full range, congruent with mood. Patient endorses ongoing anxiety and stress because of chronic medical issues. Patient endorses he has had Pneumonia on and off for several weeks. Patient endorses concerns that he will aspirate, inhale acid in his lungs and then he can't sleep so he proceeds to have anxiety about his quality of life. Patient endorses he wants to have a quality of life, spend time with his son and doing things he enjoys. Patient endorses concerns about the functioning of his lungs and does not want to be reliant on O2. Patient endorses he is on Methadone prescribed by Dr. Schmitt and he would like to get off of methadone but he is in need of medication to manage his pain. Patient and spouse endorse their extensive research in seeking treatment from hospitals to quickly ween off of Methadone but there are no hospitals able to provide this service. SHOP MECHANIC HELPER discusses limitations regarding this. Patient endorses he has tried to go to [place] but he did not want to be labeled as someone who is opiod dependent. Patient endorses that his PCP prescribes an antidepressant but he does not believe it is working and would prefer not to be on that medication as well. Patient endorses that he has a therapist that he meets with regularly. SHOP MECHANIC HELPER provides patient and spouse with information about [facility] OUD services to review their website and speak to a automotive leasing sales representative. Patient denies current SI, intent or plan and endorses safety upon d/c. Plan: patient to d/c to home upon medical clearance, patient to f/u with outpatient providers. Patient d/c with rx for doxycycline to address Pneumonia dx. PEGGY [place]
== END 2024-02-29 16:19 | disposition home or self-care (01) ==
PROVIDERS: Emergency Provider Student in an Organized Health Care Education/Training Program; PCP Family Medicine
DX: J18.9 Pneumonia, unspecified organism (principal); R06.02 Shortness of breath; R04.2 Hemoptysis
CPT/HCPCS: 71045; 80053; 83605; 83880; 84484; 85025; 85610; 93005; 94640; 99284

== ENCOUNTER → 2024-03-13 15:10 | Outpatient (CLI) | payer BC, SELFPAY ==
[2023-07-24 08:00] VITALS: BMI 25.1
--- NOTE | 2024-03-13 | DI.RAD.S_ITS ---
PROCEDURE: XR CHEST 2V INDICATIONS: RECURRENT ASPIRATION PNEUMONIA TECHNIQUE: 2 views of the chest were acquired. COMPARISON: [facility], CR, XR CHEST 1V, 02/29/2024, 13:08. FINDINGS: Surgical changes and devices: Vega rods in the thoracic and lumbar spine. Cholecystectomy clips. Lungs and pleura: Probable mild atelectatic changes in the retrocardiac region. No other consolidation, effusion, or pneumothorax. Mediastinum: Mediastinal contours are normal. Heart size is normal. Bones and chest wall: No suspicious bony abnormalities. Chronic dextroscoliosis. Soft tissues appear unremarkable. IMPRESSION: Probable retrocardiac atelectasis. No definite pneumonia. Dictated by: Marry Calvo M.D. on 03/13/2024 at 21:36 Approved by: Marry Calvo M.D. on 03/13/2024 at 21:40
== END ==
PROVIDERS: PCP Family Medicine; Referring Provider Family Medicine; Visit Provider Family Medicine
DX: J69.0 Pneumonitis due to inhalation of food and vomit (principal)
CPT/HCPCS: 71046

== ENCOUNTER → 2024-06-22 11:56 | Outpatient (CLI) | payer MEDICARE, OTHER, SELFPAY ==
[2023-07-24 08:00] VITALS: BMI 25.1
--- NOTE | 2024-06-22 12:02 | DI.RAD.S_ITS ---
PROCEDURE: XR HAND RT MIN 3V INDICATIONS: R WRIST PAIN TECHNIQUE: 3 views of the hand(s) acquired. COMPARISON: [facility], , HAND 3V RIGHT, 09/04/2016, 16:23. FINDINGS: Bones: No fractures or dislocations. Moderate radiocarpal joint space narrowing and marginal sclerosis. Carpal bones are normally aligned. No suspicious bony lesions. Soft tissues: No suspicious soft tissue calcifications. IMPRESSION: Moderate radiocarpal joint space narrowing and marginal sclerosis without acute bony abnormality. Dictated by: Je Hickey M.D. on 06/22/2024 at 17:07 Approved by: Je Hickey M.D. on 06/22/2024 at 17:09
== END ==
PROVIDERS: PCP Family Medicine; Referring Provider Family Medicine; Visit Provider Family Medicine
DX: M25.531 Pain in right wrist (principal); M79.641 Pain in right hand
CPT/HCPCS: 73130

== ENCOUNTER 2024-07-16 16:06 | Emergency (ER) | payer MEDICARE, OTHER, SELFPAY ==
[2023-07-24 08:00] VITALS: BMI 25.1
[2024-07-16 16:19] VITALS: BP 126/64; PULSE 58; RESP 18; TEMP 36.8; O2SAT 95; BMI 25.8
--- NOTE | 2024-07-16 16:25 | DI.RAD.S_ITS ---
PROCEDURE: XR CHEST 2V INDICATIONS: rule out aspiration pneumonia TECHNIQUE: 2 views of the chest were acquired. COMPARISON: [facility], CR, XR CHEST 2V, 03/13/2024, 15:33. FINDINGS: Surgical changes and devices: Extensive fixation of thoracic and lumbar spine is seen. Lungs and pleura: Lungs are clear. No pleural effusions or pneumothorax. Mediastinum: Mediastinal contours are normal. Heart size is enlarged. Bones and chest wall: No suspicious bony abnormalities. Soft tissues appear unremarkable. IMPRESSION: No acute cardiopulmonary pathology. Dictated by: Kristian Hernandez M.D. on 07/16/2024 at 17:01 Approved by: Kristian Hernandez M.D. on 07/16/2024 at 17:04
[2024-07-16 20:24] VITALS: BP 134/69; PULSE 48; RESP 16; TEMP 36.1; O2SAT 96
[2024-07-16 21:37] VITALS: PULSE 50; O2SAT 93
[2024-07-16 21:38] VITALS: BP 125/68; PULSE 50; RESP 16; O2SAT 95
--- NOTE | 2024-07-16 21:50 | ED_ITS ---
HPI - URI/Sore Throat General Chief Complaint: Upper Respiratory Symptoms Stated Complaint: lung issues, pain Time Seen by Provider: 07/16/24 21:49 History of Present Illness HPI Narrative: 64-year-old male with a past medical history hypertension, chronic pain, COPD not requiring supplemental oxygen at baseline, recurrent pneumonia presents to the emergency department from home for evaluation of possible pneumonia. He states that he has a hiatal hernia that causes him to aspirate states that he felt like he did this last night, states that he is worried that he might have had aspiration pneumonia given his history of recurrent pneumonia wanted to ?get ahead of this. He is not in any respiratory distress, he is not having any coughing at this time, states that he did call his PCP and was instructed come into the ED if he was very concerned but he does have an appointment with them tomorrow at 10:30 a.m. Related Data Home Medications Medication Instructions Recorded Confirmed fluticasone propionate 50 1 spray intranasal BEDTIME ##0 04/22/16 07/24/23 mcg/actuation nasal spray,suspension Respironics BIPAP AutoSV Advanced #1 ea 05/13/18 07/24/23 hydrochlorothiazide 25 mg tablet 25 mg PO BID 08/16/21 07/24/23 lisinopril 20 mg tablet 20 mg PO BID 08/16/21 07/24/23 methadone 10 mg tablet 20 mg PO Q4H 08/16/21 07/24/23 omeprazole 20 mg capsule,delayed 20 mg PO BID 08/16/21 07/24/23 release oxycodone 20 mg tablet 20 mg PO Q4HR 08/16/21 07/24/23 testosterone cypionate 200 mg/mL 200 mg IM QMONTH 08/16/21 07/24/23 intramuscular oil tizanidine 4 mg tablet 4 mg PO BID PRN muscle spasms 08/16/21 07/24/23 duloxetine 40 mg capsule,delayed 40 mg PO BEDTIME 05/17/22 07/24/23 release gabapentin 100 mg capsule 200 mg PO TID 05/17/22 07/24/23 mirtazapine 15 mg tablet 15 mg PO ONCE PM 07/24/23 07/24/23 Previous Rx's Medication Instructions Recorded amoxicillin 500 mg-potassium 1 tab PO BID #20 tabs 07/26/23 clavulanate 125 mg tablet (Augmentin) albuterol sulfate 90 mcg/actuation 2 puff inhalation QID PRN 02/29/24 aerosol inhaler shortness of breath or wheezing #6.7 grams Allergies Allergy/AdvReac Type Severity Reaction Status Date / Time tamsulosin [From Flomax] Allergy Intermediate Irritable Verified 01/12/23 10:02 bupropion [From WELLBUTRIN] Allergy Mild rash/nausea Verified 01/12/23 10:02 [id number] Reductase AdvReac Unknown CASSIUSLEY Verified 01/12/23 10:02 Inhibitor HORSES IN [JAGFKOL-YCC-SFS REDUCTASE LEGS INHIBITOR] Review of Systems Review of Systems Narrative: General: Denies fever, chills, weight loss HEENT: Denies headache, eye drainage, eye irritation, head trauma, sore throat, voice change Cardiovascular: Denies any chest pain, palpitations, tachycardia Respiratory: Positive cough, Denies any shortness of breath, wheeze, stridor GI/: Denies any abdominal pain, nausea, vomiting, diarrhea, bright red blood per rectum, melanotic stools, urinary frequency, urinary retention, dysuria, hematuria MSK: Denies any joint pain, muscle pains, swelling Skin: Denies any rashes, lesions, discoloration Neuro: Denies any headache, lightheadedness, dizziness, fainting, weakness Psych: Denies SI/HI Patient History Medical History Chronic pain syndrome Status post lumbar spinal arthrodesis Hiatal hernia Shortness of breath Chronic pain Aspiration pneumonia due to gastric secretions Obstructive sleep apnea of adult Snoring Scoliosis deformity of spine Surgical History Status post thoracic spinal fusion H/O knee surgery History of cholecystectomy History of lumbar fusion Family History Father Congestive heart failure Liver disease Mother Heart disease Social History marital status: details: raghu Velez, lives in [place] household members: spouse lives independently: Yes caregiver/support person: No housing: house education level: college occupational status: employed current occupational exposures/hazards: Yes (asbestos, silica, other particulates) 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 Smoking Status: Never smoker alcohol intake: former substance use type: does not use Smoking Status: Never smoker tobacco type: cigarettes alcohol intake frequency: 0-2 drinks per day Exam Narrative Exam Narrative: General: Cooperative, well-developed, not in acute distress HEENT: Normocephalic, atraumatic, PERRLA, normal sclera, eyelids normal Neck: Active full range of motion, atraumatic Chest: Normal to inspection, negative crepitus, no overlying erythema ecchymosis Respiratory: Normal respiratory effort, not in acute respiratory distress, clear to auscultation bilaterally negative cough, wheeze, tachypnea, rhonchi, rales Cardiology: Regular rate rhythm negative gallop, murmur, rubs GI/: No tenderness to palpation, soft, non rigid, normal to inspection, exam deferred MSK: Full active range of motion in all 4 extremities, atraumatic, no tenderness to palpation of any bony prominences Skin: No rashes or lesions noted Neuro: Alert awake oriented x3, moves all 4 extremities spontaneously, cranial nerves intact, able to answer all questions appropriately follows commands appropriately Psych: Cooperative, negative suicidal or homicidal ideations Initial Vital Signs Initial Vital Signs: Vital Signs Temperature 98.2 F 07/16/24 16:19 Pulse Rate 58 L 07/16/24 16:19 Respiratory Rate 18 07/16/24 16:19 Blood Pressure 126/64 07/16/24 16:19 Pulse Oximetry 95 07/16/24 16:19 Oxygen Delivery Method Room Air 07/16/24 16:19 Course Orders Ordered: ED Orders 07/16/24 16:25 XR chest 2V Stat Vital Signs Vital signs: Vital Signs - 8 hr 07/16/24 16:19 07/16/24 20:24 07/16/24 21:38 Temperature 98.2 F 96.9 F L Pulse Rate 58 L 48 L 50 L Respiratory Rate 18 16 16 Blood Pressure 126/64 134/69 125/68 Pulse Oximetry 95 96 95 Oxygen Delivery Method Room Air Room Air Room Air MDM - URI/Sore Throat Differential Diagnosis Differential diagnosis: Likely other (Pneumonia, aspiration pneumonia) Imaging Data Chest x-ray: Radiologist's Impression: [address] [address] XRay Report Signed Patient: Cole Coats MR#: [id number] : 1960 Acct:[id number] Age/Sex: 64 / M Date of Service: 07/16/24 Loc: ED Accession Number: [id number] Procedure: XR chest 2V Ordering Provider: Emmanuel Negrete MD PROCEDURE: XR CHEST 2V INDICATIONS: rule out aspiration pneumonia TECHNIQUE: 2 views of the chest were acquired. COMPARISON: [facility], , XR CHEST 2V, 03/13/2024, 15:33. FINDINGS: Surgical changes and devices: Extensive fixation of thoracic and lumbar spine is seen. Lungs and pleura: Lungs are clear. No pleural effusions or pneumothorax. Mediastinum: Mediastinal contours are normal. Heart size is enlarged. Bones and chest wall: No suspicious bony abnormalities. Soft tissues appear unremarkable. IMPRESSION: No acute cardiopulmonary pathology. MDM Narrative Medical decision making narrative: 64-year-old male with a history of COPD not requiring supplemental oxygen at baseline recurrent pneumonia presents for possible pneumonia. He states that he might have aspirated less than 24 hours ago, states that he is worried because in the past he has had issues with treating pneumonia called his PCP and instructed come into the ED if he could not wait/is very worried, but does have an appointment with them on 07/17/2024 at 10:30 a.m. patient's chest x-ray without any signs of pneumonia, patient not coughing, he is not in any acute respiratory distress not requiring any supplemental oxygen I informed him to have a repeat chest x-ray in an outpatient if he still started having symptoms but at this time no indication for antibiotics he was given strict return precautions he verbalized understanding of this and agrees to being discharged home with outpatient follow up Discharge Plan Departure Patient Disposition: Home Clinical Impression: Cough Activity Restrictions/Additional Instructions: Please follow up with your primary care doctor for your scheduled appointment Please read the discharge instructions sheet carefully and bring all papers to all doctor follow-up visits, as it may contain information that your doctor may want to see. Disease processes change and evolve, if your symptoms worsen or if you develop any new symptoms that are concerning to you please return for evaluation. Your evaluation today does not show any evidence of any life- threatening/serious illnesses requiring admission to the hospital or surgery. Please follow-up with your doctor for re-evaluation in approximately 1 day. Seek immediate medical attention for any worrisome symptoms. *If you do not have a primary care provider please contact the [facility] Resource line at [phone]. They will ask some questions about your medical history and help get you set up with a doctor in the community. Prescriptions: No Action fluticasone propionate 16 GM spray,suspension 1 spray Intranasal BEDTIME Qty: 0 duloxetine 40 mg Capsule,Delayed Release(Dr/Ec) 40 mg PO BEDTIME gabapentin 100 mg Capsule 200 mg PO TID mirtazapine 15 mg tablet 15 mg PO ONCE PM amoxicillin-pot clavulanate [Augmentin] 500-125 mg tablet 1 tab PO BID Qty: 20 0RF albuterol sulfate 90 mcg/actuation HFA aerosol inhaler 2 puff inhalation QID PRN (Reason: shortness of breath or wheezing) Qty: 6.7 2RF lisinopril 20 mg tablet 20 mg PO BID tizanidine 4 mg tablet 4 mg PO BID PRN (Reason: muscle spasms) Patient Comments: take 1 tablet by mouth at bedtime if needed for muscle spasm oxycodone 20 mg tablet 20 mg PO Q4HR Patient Comments: take 1 tablet by mouth every 4 hours NEEDED FOR PAIN maximum daily dose of 6 methadone 10 mg tablet 20 mg PO Q4H Patient Comments: take 1 tablet by mouth q8hr day omeprazole 20 mg capsule,delayed release(DR/EC) 20 mg PO BID hydrochlorothiazide 25 mg tablet 25 mg PO BID testosterone cypionate 200 mg/mL oil 200 mg IM QMONTH (DME) Respironics BIPAP AutoSV Advanced Qty: 1 Dose Instruction: As directed Patient Comments: Pressure: 6-15 cmH2O DME: Rx Instructions: As directed Referrals: Jameson Olmedo MD [Primary Care Provider] - Stand Alone Forms: Patient Portal/API/Survey
[2024-07-16 22:00] VITALS: BP 150/76; PULSE 51; O2SAT 97
== END 2024-07-16 22:16 | disposition home or self-care (01) ==
PROVIDERS: Emergency Provider Student in an Organized Health Care Education/Training Program; PCP Family Medicine
DX: R05.9 Cough, unspecified (principal)
CPT/HCPCS: 71046; 99281; 99283

== ENCOUNTER → 2024-12-19 14:50 | Outpatient (CLI) | payer MEDICARE, OTHER, SELFPAY ==
[2023-07-24 08:00] VITALS: BMI 25.1
--- NOTE | 2024-12-19 14:52 | DI.MRI.S_ITS ---
PROCEDURE: MR KNEE LT WO CON INDICATIONS: Unstable TECHNIQUE: Noncontrast sagittal PD fast spin echo and T2 fast spin echo with fat saturation, sagittal 3-D FLASH with fat saturation; coronal T1 spin echo and PD fast spin echo with fat saturation, and axial PD fast spin echo with fat saturation through the knee. COMPARISON: [facility], CR, XR KNEE STANDING BI, 12/03/2024, 11:34. FINDINGS: Image quality: Excellent. Menisci: The medial meniscus is diminutive, possibly secondary to prior surgery versus radial tearing. There is linear oblique high T2 signal intensity traversing the inner, middle, and peripheral thirds of the medial meniscal remnant, demonstrating inferior articular surface extension, indicating oblique tearing. Lateral meniscus is intact. Cruciate ligaments: The anterior and posterior cruciate ligaments appear intact. Medial structures: The medial collateral ligament appears intact. Visualized portions of the pes anserinus tendons appear normal. No abnormal bursal fluid. Lateral structures: The lateral collateral ligament, long and short heads of the biceps femoris tendon appear intact. The popliteus tendon appears normal. Iliotibial band appears normal. Anterior structures: The quadriceps and patellar tendons appear intact. Patellar alignment is normal. No femoral trochlear dysplasia or ventral trochlear prominence. No edema in the infrapatellar fat pad. Bones and cartilage: No bone marrow contusions or fractures. Moderate articular cartilage loss diffusely overlies the weight-bearing aspects of the medial femoral condyle and medial tibial plateau. Moderate articular cartilage loss overlies the medial and lateral patellar facets with superimposed small high-grade regions of articular cartilage loss overlying the medial patellar facet and patellar apex. Joint space: There is physiologic knee joint fluid. No Newman's cyst. Normal appearing synovial plicae are incidentally noted. IMPRESSION: 1. Possible postsurgical sequelae of the medial meniscus. There appears to be tearing of the meniscal remnant. 2. Medial and patellofemoral compartment articular cartilage loss. Dictated by: Alyssa Tom M.D. on 12/21/2024 at 13:49 Approved by: Alyssa Tom M.D. on 12/21/2024 at 13:51
== END ==
LOC: MRI 14:51
PROVIDERS: PCP Family Medicine; Referring Provider Family Medicine; Visit Provider Family Medicine
DX: M25.362 Other instability, left knee (principal)
CPT/HCPCS: 73721

== ENCOUNTER → 2024-12-25 11:06 | Outpatient (ROUT) | payer MEDICARE, OTHER, SELFPAY ==
[2023-07-24 08:00] VITALS: BMI 25.1
[2024-12-25 11:56] LABS: Influenza A - CEPHEID Flu A NEGATIVE (NEGATIVE); Influenza B - CEPHEID Flu B NEGATIVE (NEGATIVE)
[2024-12-25 11:57] LABS: COVID-19 CEPHEID 4-PLEX PCR Negative (Negative)
== END ==
PROVIDERS: PCP Family Medicine; Visit Provider Family Medicine
DX: R05.1 Acute cough (principal)
CPT/HCPCS: 87637

== ENCOUNTER → 2024-12-25 11:44 | Outpatient (CLI) | payer MEDICARE, OTHER, SELFPAY ==
[2023-07-24 08:00] VITALS: BMI 25.1
--- NOTE | 2024-12-25 11:47 | DI.RAD.S_ITS ---
PROCEDURE: XR CHEST 2V INDICATIONS: PNEUMONIA TECHNIQUE: 2 views of the chest were acquired. COMPARISON: [facility], CR, XR CHEST 2V, 07/16/2024, 16:29. FINDINGS: Surgical changes and devices: None. Lungs and pleura: Lungs are clear. No pleural effusions or pneumothorax. Mediastinum: Mediastinal contours are normal. Heart size is normal. Bones and chest wall: No suspicious bony abnormalities. Redemonstrated spinal hardware and dextroscoliosis of the thoracic spine. Soft tissues appear unremarkable. IMPRESSION: No acute cardiopulmonary abnormality is seen. Dictated by: Je Hickey M.D. on 12/28/2024 at 0:55 Approved by: Je Hickey M.D. on 12/28/2024 at 1:32
== END ==
LOC: RAD 11:46
PROVIDERS: PCP Family Medicine; Referring Provider Family Medicine; Visit Provider Family Medicine
DX: J18.9 Pneumonia, unspecified organism (principal)
CPT/HCPCS: 71046; 87637

== ENCOUNTER 2025-01-05 11:29 | Inpatient (IN) | payer MEDICARE, OTHER, SELFPAY ==
[2023-07-24 08:00] VITALS: BMI 25.1
[2025-01-05] VITALS (11 sets, daily range): BP systolic 114–155; BP diastolic 51–80; PULSE 52–97; RESP 14–20; TEMP 36.2–36.8; O2SAT 91–94; BMI 26.4
--- NOTE | 2025-01-05 11:48 | DI.RAD.S_ITS ---
PROCEDURE: XR CHEST 1V INDICATIONS: Shortness of breath TECHNIQUE: One view of the chest was acquired. COMPARISON: [facility], CR, XR CHEST 2V, 12/25/2024, 10:58. FINDINGS: Surgical changes and devices: Vega rods in the thoracolumbar spine. Overlying monitoring wires. Lungs and pleura: Acute alveolar opacity in the right infrahilar region. Lungs are otherwise clear. No significant effusion. Mediastinum: Stable cardiomediastinal contour. No central venous congestion. Bones and chest wall: No suspicious bony lesions. Overlying soft tissues appear unremarkable. IMPRESSION: Right lower lung alveolar opacity, most likely pneumonia, possibly infectious or aspiration. Otherwise stable. Dictated by: Marry Calvo M.D. on 01/05/2025 at 12:00 Approved by: Marry Calvo M.D. on 01/05/2025 at 12:02
--- NOTE | 2025-01-05 11:48 | EKG_ITS ---
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
[2025-01-05] MEDS: ALBUTEROL/IPRATROPIUM 3 ML AMPUL INH (11:58)
--- NOTE | 2025-01-05 12:09 | ED.SOB ---
HPI - SOB/Dyspnea General Chief Complaint: Shortness of Breath/Dyspnea Stated Complaint: SOB, oxygen 85, sick for several weeks Time Seen by Provider: 01/05/25 11:31 Source: patient Mode of arrival: Ambulatory Limitations: no limitations History of Present Illness HPI Narrative: Patient sees primary care Dr. Olmedo. Patient has history of recurrent aspiration pneumonia secondary to acid reflux. Patient admitted July 2023 for aspiration pneumonia and improved with Unasyn. Patient just recently finished oral antibiotic Augmentin for pneumonia. Related Data Home Medications ?Medication ?Instructions ?Recorded ?Confirmed fluticasone propionate 50 1 spray intranasal BEDTIME ##0 04/22/16 01/05/25 mcg/actuation nasal spray,suspension Respironics BIPAP AutoSV Advanced #1 ea 05/13/18 07/24/23 hydrochlorothiazide 25 mg tablet 25 mg PO BID 08/16/21 01/05/25 lisinopril 20 mg tablet 20 mg PO BID 08/16/21 01/05/25 methadone 10 mg tablet 20 mg PO Q4H 08/16/21 01/05/25 omeprazole 20 mg capsule,delayed 20 mg PO BID 08/16/21 01/05/25 release oxycodone 20 mg tablet 20 mg PO Q4HR 08/16/21 01/05/25 testosterone cypionate 200 mg/mL 60 mg IM Q7D 08/16/21 01/05/25 intramuscular oil tizanidine 4 mg tablet 4 mg PO BID PRN muscle spasms 08/16/21 01/05/25 duloxetine 40 mg capsule,delayed 20 mg PO BID 05/17/22 01/05/25 release gabapentin 100 mg capsule 200 mg PO TID 05/17/22 01/05/25 mirtazapine 30 mg tablet 45 mg PO QPM 01/05/25 01/05/25 Allergies Allergy/AdvReac Type Severity Reaction Status Date / Time tamsulosin (From Flomax) Allergy Intermediate Irritable Verified 01/05/25 17:56 bupropion (From WELLBUTRIN) Allergy Mild rash/nausea Verified 01/05/25 17:56 Shdzntv-RZQ-HfZ Reductase AdvReac Unknown CHARLEY Verified 01/05/25 17:56 Inhibitor ([id number] HORSES IN REDUCTASE INHIBITOR) LEGS Review of Systems Review of Systems Narrative: GENERAL: Negative chills, fatigue, malaise, fever, sweats. HEENT: Negative sinus pain, ear pain, sore throat RESPIRATORY: Positive dyspnea, cough CARDIOVASCULAR: Negative chest pain, palpitations GASTROINTESTINAL: Negative vomiting, nausea, abdominal pain : Negative dysuria, frequency, hematuria MUSCULOSKELETAL: Negative muscle or bony pain SKIN: Negative rash, skin lesions NEUROLOGIC: Negative weakness, numbness ROS Unobtainable: All systems reviewed & are unremarkable except as noted in HPI and below Patient History Medical History Chronic pain syndrome Status post lumbar spinal arthrodesis Hiatal hernia Shortness of breath Chronic pain Aspiration pneumonia due to gastric secretions Obstructive sleep apnea of adult Snoring Scoliosis deformity of spine Surgical History Status post thoracic spinal fusion H/O knee surgery History of cholecystectomy History of lumbar fusion Family History Father Congestive heart failure Liver disease Mother Heart disease Social History marital status: details: raghu Velez, lives in [place] household members: spouse lives independently: Yes caregiver/support person: No housing: house education level: college occupational status: employed current occupational exposures/hazards: Yes (asbestos, silica, other particulates) 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 EYES: Pupils equal round ENT: Mucous membranes moist. NECK: Trachea midline. CARDIOVASCULAR: Regular rate and rhythm RESPIRATORY: Diminished lung sounds at the right base. Coarse lung sounds at the left base. Patient is speaking full sentences but requiring supplemental oxygen. No respiratory distress. GASTROINTESTINAL: Abdomen soft, non-tender EXTREMITIES: No gross deformities. BACK: No flank tenderness. NEURO: AOx4. Clear speech SKIN: Warm and dry PSYCH: Not anxious, is cooperative Initial Vital Signs Initial Vital Signs: Vital Signs Pulse Rate 89 01/05/25 11:35 Pulse Oximetry 91 01/05/25 11:35 Course Orders Ordered: ED Orders 01/05/25 11:48 XR chest 1V Stat EKG-12 Lead Stat 01/05/25 12:08 Complete Blood Count AUTO DIFF Stat Comprehensive Metabolic Panel Stat Lactate (Lactic Acid) Stat NT-proBNP (BNP-Adult 18+) Stat Procalcitonin Stat Prothrombin Time INR Stat Troponin I Stat 01/05/25 12:35 Blood Culture Stat 01/05/25 12:58 Respiratory Panel (Film Array) Stat Acetaminophen (Acetaminophen 325 Mg Tablet) 650 mg PO Q6H PRN PRN Reason: Fever/Mild Pain (1-3) Al Hydrox/Mg Hydrox/Simethicone (Mag Hydrox/Alum/Simeth 30 Ml Udc) 30 ml PO Q6HR PRN PRN Reason: Dyspepsia Albuterol (Albuterol 2.5 Mg/3 Ml Neb (Adult)) 2.5 mg INH Q2H PRN PRN Reason: Shortness Of Breath Or Wheezing Albuterol/Ipratropium (Albuterol/Ipratropium 3 Ml Ampul) 3 ml INH RTQ4HR PRN PRN Reason: Shortness Of Breath Last Admin: 01/05/25 11:58 Dose: 3 ml Documented By: PEDRO Duloxetine HCl (Duloxetine 20 Mg Capsule.Dr) 40 mg PO BEDTIME ALEJANDRO Enoxaparin Sodium (Enoxaparin 40 Mg/0.4 Ml Syringe) 40 mg SUBCUT DAILY [facility] Gabapentin (Gabapentin 100 Mg Capsule) 200 mg PO TID [facility] Last Admin: 01/05/25 14:27 Dose: 200 mg Documented By: DEBI Lactated Ringer's (Lactated Ringers) 1,000 mls @ 125 mls/hr IV CONT [facility] Last Admin: 01/05/25 14:28 Dose: 125 mls/hr Documented By: DEBI Ampicillin Sodium/Sulbactam (Sodium 3 gm/ Sodium Chloride) 100 mls @ 200 mls/hr IV Q6H [facility] Last Admin: 01/05/25 18:44 Dose: 200 mls/hr Documented By: DEBI Lisinopril (Lisinopril 20 Mg Tablet) 20 mg PO BID ALEJANDRO Magnesium Hydroxide (Magnesium Hydroxide 30 Ml Udc) 30 ml PO DAILY PRN PRN Reason: Constipation Methadone HCl (Methadone 10 Mg Tablet) 20 mg PO Q4H [facility] Last Admin: 01/05/25 18:05 Dose: 20 mg Documented By: Admin: 01/05/25 14:27 Dose: 20 mg Documented By: DEBI Mirtazapine (Mirtazapine 15 Mg Tablet) 15 mg PO BEDTIME [facility] Naloxone HCl (Naloxone 0.4 Mg/Ml Vial) 0.2 mg IV Q2MIN PRN PRN Reason: Opiate Reversal Oxycodone HCl (Oxycodone Ir 10 Mg Tablet) 20 mg PO Q4HR [facility] Last Admin: 01/05/25 18:05 Dose: 20 mg Documented By: DEBI Pantoprazole Sodium (Pantoprazole 40 Mg Vial) 40 mg IV DAILY [facility] Last Admin: 01/05/25 14:27 Dose: 40 mg Documented By: DEBI Potassium Chloride (Potassium Chloride 20 Meq Tab) 40 meq PO Q6H [facility] Stop: 01/05/25 22:46 Last Admin: 01/05/25 18:05 Dose: 40 meq Documented By: DEBI Promethazine HCl (Promethazine 12.5 Mg Supp) 12.5 mg AR Q6HR PRN PRN Reason: Nausea And Vomiting Tizanidine HCl (Tizanidine 4 Mg Tablet) 4 mg PO BID PRN PRN Reason: muscle spasms Discontinued Medications Ampicillin Sodium/Sulbactam (Sodium 3 gm/ Sodium Chloride) 100 mls @ 200 mls/hr IV NOW ONE Stop: 01/05/25 12:09 Last Infusion: 01/05/25 13:01 Dose: Infused Documented By: Admin: 01/05/25 12:23 Dose: 200 mls/hr Documented By: JESSICA Morphine Sulfate (Morphine 4 Mg/Ml Inj) 4 mg IV NOW ONE Stop: 01/05/25 12:14 Last Admin: 01/05/25 12:29 Dose: 4 mg Documented By: JESSICA Ondansetron HCl (Ondansetron 4 Mg/2 Ml Inj) 4 mg IV NOW ONE Stop: 01/05/25 12:14 Last Admin: 01/05/25 12:27 Dose: 4 mg Documented By: JESSICA Pantoprazole Sodium (Pantoprazole 40 Mg Vial) 40 mg IV NOW ONE Stop: 01/05/25 12:14 Last Admin: 01/05/25 12:27 Dose: 40 mg Documented By: JESSICA Vital Signs Vital signs: Vital Signs - 8 hr 01/05/25 12:00 01/05/25 12:00 01/05/25 12:00 Pulse Rate 71 92 H Respiratory Rate 20 14 Blood Pressure 141/74 H Pulse Oximetry 94 94 Oxygen Delivery Method Nasal Cannula Nasal Cannula Oxygen Flow Rate 2 2 MDM - SOB/Dyspnea Lab Data 01/05/25 12:08 01/05/25 12:08 Labs: Lab Results 01/05/25 Range/Units 12:08 WBC 8.9 (4.5-11.0) X10^3/uL RBC 4.96 (4.5-5.9) X10^6/uL Hgb 15.5 (13.5-17.5) g/dL Hct 44.4 (41-53) % MCV 89.5 (80-100) fL MCH 31.2 (26-34) PG MCHC 34.8 (30-36) % RDW 14.3 (11.6-14.8) % Plt Count 153 (150-400) X10^3/uL Neut % (Auto) 89.9 H (50-75) % Lymph % (Auto) 4.3 L (25-40) % Emmons % (Auto) 5.4 (3-14) % Eos % (Auto) 0.1 L (2-4) % Baso % (Auto) 0.3 (0-2) % Neut # (Auto) 8000 H (8127-4614) /uL Lymph # (Auto) 400 L (2288-0293) /uL Emmons # (Auto) 500 (0-900) /uL Eos # (Auto) 0 (0-450) /uL Baso # (Auto) 0 (0-100) /uL PT 11.0 (9.4-12.5) SECONDS INR 1.0 (0.9-1.3) Sodium 135 L (137-145) mmol/L Potassium 3.3 L (3.4-5.1) mmol/L Chloride 94 L (98-107) mmol/L Carbon Dioxide 29 (22-32) mmol/L BUN 19 (9-20) mg/dL Creatinine 1.08 (0.66-1.25) mg/dL Estimated GFR > 60 (>60) mL/min BUN/Creatinine Ratio 17.6 (6-22) Glucose 145 H (70-99) mg/dL Lactate 2.0 (0.7-2.1) mmol/L Calcium 8.8 (8.4-10.2) mg/dL Total Bilirubin 1.0 (0.2-1.3) mg/dL AST 37 (17-59) IU/L ALT 29 (<50) IU/L Alkaline Phosphatase 58 (38-126) U/L Troponin I < 0.012 (0.01-0.034) ng/mL NT-Pro-B Natriuret Pep 40 (<125) pg/mL Total Protein 9.5 H (6.3-8.2) g/dL Albumin 4.7 (3.5-5.0) g/dL Globulin 4.8 H (1.7-4.1) g/dL Albumin/Globulin Ratio 1.0 (1.0-2.8) Procalcitonin 0.083 (<0.5) ng/mL Imaging Data Chest x-ray: Radiologist's Impression: [address] [address] XRay Report Signed Patient: Cole Coats MR#: [id number] : 1960 Acct:[id number] Age/Sex: 64 / M Date of Service: 01/05/25 Loc: ED Accession Number: [id number] Procedure: XR chest 1V Ordering Provider: Lalo Alfred MD PROCEDURE: XR CHEST 1V INDICATIONS: Shortness of breath TECHNIQUE: One view of the chest was acquired. COMPARISON: [facility], , XR CHEST 2V, 12/25/2024, 10:58. FINDINGS: Surgical changes and devices: Vega rods in the thoracolumbar spine. Overlying monitoring wires. Lungs and pleura: Acute alveolar opacity in the right infrahilar region. Lungs are otherwise clear. No significant effusion. Mediastinum: Stable cardiomediastinal contour. No central venous congestion. Bones and chest wall: No suspicious bony lesions. Overlying soft tissues appear unremarkable. IMPRESSION: Right lower lung alveolar opacity, most likely pneumonia, possibly infectious or aspiration. Otherwise stable. Dictated by: Marry Calvo M.D. on 01/05/2025 at 12:00 Approved by: Marry Calvo M.D. on 01/05/2025 at 12:02 [facility] Narrative Medical decision making narrative: Patient sees primary care Dr. Olmedo. Patient has history of recurrent aspiration pneumonia secondary to acid reflux. Patient admitted July 2023 for aspiration pneumonia and improved with Unasyn. Patient just recently finished oral antibiotic Augmentin for pneumonia. MDM After history and exam, CBC CMP procalcitonin lactic acid blood culture chest x-ray Unasyn/admit Differential considered: Includes but not limited to aspiration pneumonia Medical records reviewed: July 2023 discharge summary from this hospital Lab Test results independently reviewed as above. Pertinent findings: WBC 8.9 hemoglobin 15.5 sodium 135 potassium 3.3 Independently reviewed EKG sinus rhythm rate [address]-elevation or depression Imaging studies independently reviewed: Chest x-ray right lower lobe pneumonia Consultations: 12:22 p.m.. I spoke with primary care provider Dr. Olmedo, will admit patient Re-evaluations: 12:16 p.m.. Updated patient and results and exam and treatment plan. They do agree understand need for IV antibiotics admission for aspiration pneumonia. Discussion: Appropriate for admission for IV antibiotics. Patient requiring supplemental oxygen. Diagnosis: Aspiration pneumonia Discharge Plan Departure Patient Disposition: Admitted As Inpatient Clinical Impression: Aspiration pneumonia Qualifiers: Aspiration pneumonia type: unspecified Laterality: right Lung location: lower lobe of lung Qualified Code(s): J69.0 - Pneumonitis due to inhalation of food and vomit Admit Date/Time: 01/05/25 12:28 Admit Provider: Jameson Olmedo
[2025-01-05] MEDS: AMPICILLIN/SULBACTAM 3 GM 3 GM in SODIUM CHLORIDE 0.9% 100 ML IV ×2 (12:23→18:44)
[2025-01-05] MEDS: ONDANSETRON 4 MG/2 ML INJ IV (12:27)
[2025-01-05] MEDS: PANTOPRAZOLE 40 MG VIAL IV ×2 (12:27→14:27)
[2025-01-05] MEDS: MORPHINE 4 MG/ML INJ IV (12:29)
[2025-01-05 12:47] LABS: Add Manual Diff / Slide Review NO; Hematocrit 44.4 % (41-53); Hemoglobin 15.5 g/dL (13.5-17.5); INR 1.0 (0.9-1.3); Lymphocytes Absolute Auto 400 /uL (1100-4500); Mean Corpuscular HGB Conc 34.8 % (30-36); Mean Corpuscular Hemoglobin 31.2 PG (26-34); Mean Corpuscular Volume 89.5 fL (80-100); Platelet Count 153 X10^3/uL (150-400); Prothrombin Time 11.0 SECONDS (9.4-12.5)
[2025-01-05 12:52] LABS: Lactate (Lactic Acid) 2.0 mmol/L (0.7-2.1)
[2025-01-05 12:54] LABS: Alanine Aminotransferase 29 IU/L (<50); Albumin 4.7 g/dL (3.5-5.0); Albumin Globulin Ratio 1.0 (1.0-2.8); Alkaline Phosphatase 58 U/L (38-126); Blood Urea Nitrogen 19 mg/dL (9-20); Calcium 8.8 mg/dL (8.4-10.2); Carbon Dioxide 29 mmol/L (22-32); Chloride 94 mmol/L (98-107); Estimated Glomerular Filt Rate > 60 mL/min (>60); Globulin 4.8 g/dL (1.7-4.1); Glucose 145 mg/dL (70-99); HEMOLYSIS 46 (0-50); Potassium 3.3 mmol/L (3.4-5.1); Sodium 135 mmol/L (137-145); Total Protein 9.5 g/dL (6.3-8.2)
[2025-01-05 13:05] LABS: NT-proBNP (BNP-Adult 18+) 40 pg/mL (<125); Troponin I < 0.012 ng/mL (0.01-0.034)
[2025-01-05 13:11] LABS: Procalcitonin 0.083 ng/mL (<0.5)
--- NOTE | 2025-01-05 13:13 | PM.HP.1 ---
History of Present Illness History of Present Illness Date Patient Seen: 01/05/25 Time Patient Seen: 13:13 Date of Onset of Symptoms: 12/21/24 Chief complaint: SOB, oxygen 85, sick for several weeks Narrative: Patient is a 64-year-old male well known to me with history of chronic pain syndrome and reflux with history of aspiration pneumonia who presents with increasing shortness of breath and dizziness. Patient has had recurrent episodes of pneumonia over the last several years. He has been recently evaluated by GI and is in the process of probably getting a Jb fundoplication but has not got that set up yet. Last week he began having shortness of breath and cough after an aspiration event started his Augmentin finished the Augmentin on Saturday but still felt like he was not doing well and is increasingly got worse since discontinuing antibiotics. Maybe even started to get worse at the end of antibiotics. Increasing cough increasing shortness of breath worse this morning. Scared today. Came to the ER. There has been no other significant change. He has had no diarrhea no abdominal pain no nausea or vomiting. Does feel like his reflexes active right now. No headaches visual symptoms or other change. [facility] Medical History Chronic pain syndrome Status post lumbar spinal arthrodesis Hiatal hernia Shortness of breath Chronic pain Aspiration pneumonia due to gastric secretions Obstructive sleep apnea of adult Snoring Scoliosis deformity of spine Surgical History Status post thoracic spinal fusion H/O knee surgery History of cholecystectomy History of lumbar fusion Family History Father Congestive heart failure Liver disease Mother Heart disease Social History marital status: details: raghu Velez, lives in [place] household members: spouse lives independently: Yes caregiver/support person: No housing: house education level: college occupational status: employed current occupational exposures/hazards: Yes (asbestos, silica, other particulates) 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 Smoking Status: Former smoker alcohol intake: former substance use type: does not use Meds Home Medications and Allergies Home Medications ?Medication ?Instructions ?Recorded ?Confirmed ?Type fluticasone propionate 50 1 spray intranasal BEDTIME ##0 04/22/16 07/24/23 History mcg/actuation nasal spray,suspension Respironics BIPAP AutoSV Advanced #1 ea 05/13/18 07/24/23 History hydrochlorothiazide 25 mg tablet 25 mg PO BID 08/16/21 07/24/23 History lisinopril 20 mg tablet 20 mg PO BID 08/16/21 07/24/23 History methadone 10 mg tablet 20 mg PO Q4H 08/16/21 07/24/23 History omeprazole 20 mg capsule,delayed 20 mg PO BID 08/16/21 07/24/23 History release oxycodone 20 mg tablet 20 mg PO Q4HR 08/16/21 07/24/23 History testosterone cypionate 200 mg/mL 200 mg IM QMONTH 08/16/21 07/24/23 History intramuscular oil tizanidine 4 mg tablet 4 mg PO BID PRN muscle spasms 08/16/21 07/24/23 History duloxetine 40 mg capsule,delayed 40 mg PO BEDTIME 05/17/22 07/24/23 History release gabapentin 100 mg capsule 200 mg PO TID 05/17/22 07/24/23 History mirtazapine 15 mg tablet 15 mg PO ONCE PM 07/24/23 07/24/23 History amoxicillin 500 mg-potassium 1 tab PO BID #20 tabs 07/26/23 Rx clavulanate 125 mg tablet (Augmentin) albuterol sulfate 90 mcg/actuation 2 puff inhalation QID PRN 02/29/24 Rx aerosol inhaler shortness of breath or wheezing #6.7 grams Allergies Allergy/AdvReac Type Severity Reaction Status Date / Time tamsulosin (From Flomax) Allergy Intermediate Irritable Verified 01/05/25 11:41 bupropion (From WELLBUTRIN) Allergy Mild rash/nausea Verified 01/05/25 11:41 Fegjkch-BFA-ImF Reductase AdvReac Unknown CHARLEY Verified 01/05/25 11:41 Inhibitor (PHPUMMA-HUL-JAX HORSES IN REDUCTASE INHIBITOR) LEGS Review of Systems Review of Systems Narrative: Negative as above Exam Vital Signs (past 8 hours): - 01/05/25 11:35 01/05/25 11:36 01/05/25 11:36 Pulse Rate 89 74 Respiratory Rate Blood Pressure 146/71 H Pulse Oximetry 91 94 Oxygen Delivery Method Nasal Cannula Oxygen Flow Rate 2 01/05/25 11:40 01/05/25 12:00 01/05/25 12:00 Pulse Rate 76 71 92 H Respiratory Rate 18 20 14 Blood Pressure 146/71 H Pulse Oximetry 91 94 94 Oxygen Delivery Method Room Air Nasal Cannula Nasal Cannula Oxygen Flow Rate 2 2 01/05/25 12:00 01/05/25 12:30 01/05/25 12:30 Pulse Rate 97 H Respiratory Rate 16 Blood Pressure 141/74 H 155/75 H Pulse Oximetry 91 Oxygen Delivery Method Nasal Cannula Oxygen Flow Rate 4 Oxygen Delivery Method Nasal Cannula Oxygen Flow Rate 4 Narrative Exam Narrative: Alert fatigued male in moderate distress diaphoretic appearance. Mucous membranes mildly dry. Neck supple without adenopathy JVD or bruits lungs with left-sided crackles but rhonchi and crackles on the right base. Some to the mid lung field. Heart is regular rate and rhythm no retractions. No palpable thrills or other changes on its chest abdomen is benign extremities without cyanosis clubbing edema back with usual changes for scoliosis Objective Labs 01/05/25 12:08 01/05/25 12:08 Labs: Laboratory Results - last 24 hr 01/05/25 12:08 WBC 8.9 RBC 4.96 Hgb 15.5 Hct 44.4 MCV 89.5 MCH 31.2 MCHC 34.8 RDW 14.3 Plt Count 153 Neut % (Auto) 89.9 H Lymph % (Auto) 4.3 L Winkler % (Auto) 5.4 Eos % (Auto) 0.1 L Baso % (Auto) 0.3 Neut # (Auto) 8000 H Lymph # (Auto) 400 L Winkler # (Auto) 500 Eos # (Auto) 0 Baso # (Auto) 0 PT 11.0 INR 1.0 Sodium 135 L Potassium 3.3 L Chloride 94 L Carbon Dioxide 29 BUN 19 Creatinine 1.08 Estimated GFR > 60 BUN/Creatinine Ratio 17.6 Glucose 145 H Lactate 2.0 Calcium 8.8 Total Bilirubin 1.0 AST 37 ALT 29 Alkaline Phosphatase 58 Troponin I < 0.012 NT-Pro-B Natriuret Pep 40 Total Protein 9.5 H Albumin 4.7 Globulin 4.8 H Albumin/Globulin Ratio 1.0 Procalcitonin 0.083 Assessment & Plan Assessment & Plan narrative: Acute respiratory failure. Secondary to aspiration pneumonia. Patient with the current history. He has not required oxygen in the past but clearly is now. Will continue to support with O2 and follow. Recheck a.m.. Hopefully will cover relatively quickly will just see how it goes. Aspiration pneumonia. Recurrent in nature. Patient has done well on Unasyn in the past. But was recently just treated with Augmentin will just have to see how he responds over the next 24 hours. Patient understands. May need to adjust antibiotics depending on cultures and how he is doing. Patient with this recurrent history and is in the process of getting worked up for a Ja fundoplication. Will just have to support him until he gets there. Recheck labs in a.m.. Continue oxygen. Re-evaluate 24 hours. Dehydration. Mild. Gentle IV hydration. Re-evaluate in a.m.. Has no cardiac history so should be without significant risk kidney function looks good. Hypertension. Mildly elevated right now I am going to hold his hydrochlorothiazide for now continue his lisinopril will see how he does. Can add that back in the near future. Chronic pain syndrome primarily back secondary to severe scoliosis status post surgery doing okay. Will continue his usual pain meds. And follow. Depression. Overall doing pretty well. Has been stable. Will continue his usual SSRI and continue to follow. GI prophylaxis not needed at this time we will follow DVT prophylaxis Lovenox Code status full. Disposition. Anticipate 3-4 days of IV antibiotics will see how things go. Patient understands questions answered. Relatively sick at this time certainly more sick than the last time we admitted him. Time-Based Coding :: [TOTAL MINUTES] spent with patient and on the chart (including review of chart, obtaining history, exam, reviewing outside data, placing orders, documenting exam and treatment plan, and counseling patient) on [DATE].
[2025-01-05 14:27] LABS: Coronavirus NL 63 Not Detected (Not Detect); SARS- CoV-2 Not Detected (Not Detecte)
[2025-01-05] MEDS: GABAPENTIN 100 MG CAPSULE 200 MG PO ×2 (14:27→21:34)
[2025-01-05] MEDS: METHADONE 10 MG TABLET 20 MG PO ×3 (14:27→21:34)
[2025-01-05] MEDS: LACTATED RINGERS 1,000 ML 125 ML IV ×2 (14:28→23:00)
[2025-01-05] MEDS: POTASSIUM CHLORIDE 20 MEQ TAB 40 MEQ PO (18:05)
--- NOTE | 2025-01-05 18:57 | PC.NURSE ---
Patient arrived from ED this afternoon. He complains of feeling some nausea/ acid reflux. He is oriented to room, unit routines. Call light in reach, scd's placed, LR at 125ml/hr, IV abx hung, Isolation for Rhino Virus. Thomas GREER completed admission assessment/Med rec with . Patient verbalizes understanding of calling for assistance to get up out of bed. Continuous monitoring. VSS, afebrile on 4 LNC. Patient resting quietly this evening.
[2025-01-05] MEDS: MIRTAZAPINE 15 MG TABLET PO (21:34)
[2025-01-06] VITALS (8 sets, daily range): BP systolic 115–132; BP diastolic 55–70; PULSE 48–54; RESP 18–21; TEMP 36–36.8; O2SAT 92–96
[2025-01-06] MEDS: AMPICILLIN/SULBACTAM 3 GM 3 GM in SODIUM CHLORIDE 0.9% 100 ML IV ×4 (00:50→18:10)
[2025-01-06] MEDS: tiZANidine 4 MG TABLET PO (00:51)
[2025-01-06] MEDS: METHADONE 10 MG TABLET 20 MG PO ×6 (00:51→20:48)
[2025-01-06 05:03] LABS: Add Manual Diff / Slide Review NO; Hematocrit 36.5 % (41-53); Hemoglobin 12.5 g/dL (13.5-17.5); Lymphocytes Absolute Auto 1100 /uL (1100-4500); Mean Corpuscular HGB Conc 34.3 % (30-36); Mean Corpuscular Hemoglobin 31.1 PG (26-34); Mean Corpuscular Volume 90.7 fL (80-100); Platelet Count 136 X10^3/uL (150-400)
[2025-01-06 05:11] LABS: Alanine Aminotransferase 17 IU/L (<50); Albumin 3.5 g/dL (3.5-5.0); Albumin Globulin Ratio 1.0 (1.0-2.8); Alkaline Phosphatase 47 U/L (38-126); Blood Urea Nitrogen 17 mg/dL (9-20); Calcium 7.9 mg/dL (8.4-10.2); Carbon Dioxide 31 mmol/L (22-32); Chloride 97 mmol/L (98-107); Estimated Glomerular Filt Rate > 60 mL/min (>60); Globulin 3.6 g/dL (1.7-4.1); Glucose 106 mg/dL (70-99); HEMOLYSIS < 15 (0-50); Magnesium 1.7 mg/dL (1.6-2.3); Potassium 3.4 mmol/L (3.4-5.1); Sodium 133 mmol/L (137-145); Total Protein 7.1 g/dL (6.3-8.2)
[2025-01-06] MEDS: LACTATED RINGERS 1,000 ML 125 ML IV (06:08)
[2025-01-06] MEDS: PANTOPRAZOLE 40 MG VIAL IV (08:22)
[2025-01-06] MEDS: POTASSIUM CHLORIDE 20 MEQ TAB 40 MEQ PO (08:26)
[2025-01-06] MEDS: MAGNESIUM CHLORIDE 64 MG TABLET 128 MG PO (08:26)
[2025-01-06] MEDS: GABAPENTIN 100 MG CAPSULE 200 MG PO ×3 (08:26→20:48)
[2025-01-06] MEDS: ENOXAPARIN 40 MG/0.4 ML SYRINGE SUBCUT (08:26)
--- NOTE | 2025-01-06 12:16 | CM.DANOTE ---
Initial DCP Assessment Visit Note Reviewed EMR and team rounds for pt's medical status and updates. Met with pt at bedside to introduce self and role, pt was found to be sitting upright in his recliner, in no distress, and was able to share his plan for home d/c once stable. He resides independently in his own home with spouse here in [place]. He declines any CM d/c assistance or resource needs at this time. Payor: Medicare PCP: Dr. Olmedo Pt is a 64 year-old M with a PMH of recurrent aspiration pneumonia due to acid reflux, and has just finished a course of oral Augmentin for pneumonia. Chest x-ray showed likely aspiration pneumonia. Plan was made to start pt on IV antibiotics and fluids. DCP will continue to follow in case of any further evolving needs for assistance. 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 Olmedo Insurance Medicare Advance Directives? Yes Advance Directives No on File History Provided By Patient,Medical Record Has Patient been No admitted in last 30 days? Prior Living House Arrangements Household Members spouse Type of Drives own vehicle transporation used prior to admit Independent with ADL Yes 's Is patient alert and Yes oriented? Caregiver for No Another Comment N/A Comment No identified home d/c needs at this time. Barriers to No Discharge Discharge Plan Home Transportation Spouse Arrangement Referrals Initiated None needed Whiteboard Updated Yes in Patient Room with name and ext. # of Shrimp Trawler Review Status In Process Please Provide Date 01/06/25 Initial DC Assessment Was Performed
[2025-01-06] MEDS: ALBUTEROL 2.5 MG/3 ML NEB (ADULT) INH (13:02)
[2025-01-06] MEDS: DOCUSATE 100 MG CAPSULE PO ×2 (13:16→20:48)
[2025-01-06] MEDS: SENNOSIDES 8.6 MG TABLET 25.8 MG PO ×2 (13:17→20:48)
--- NOTE | 2025-01-06 13:48 | P.PN_ITS ---
Subjective Subjective Date Patient Seen: 01/06/25 Time Patient Seen: 13:49 Interval history: Patient seen in follow-up of acute respiratory failure aspiration pneumonia rhino virus infection dehydration. Patient feeling better today. Unable to come off of oxygen yet but feeling better. Less issues with breathing. No chest pain. No other shortness of breath but has not been mobilizing much. Otherwise no change. Pain control seems good. Exam Vital Signs (past 8 hours): - 01/06/25 07:00 01/06/25 07:00 01/06/25 08:00 Temperature 96.8 F L Pulse Rate 52 L Respiratory Rate 21 Blood Pressure 115/55 L Pulse Oximetry 94 93 Oxygen Delivery Method Nasal Cannula Nasal Cannula Oxygen Flow Rate 4 4 Fraction of Inspired Oxygen 01/06/25 09:24 01/06/25 13:02 Temperature Pulse Rate 54 L Respiratory Rate 18 Blood Pressure Pulse Oximetry 94 96 Oxygen Delivery Method Nasal Cannula Nasal Cannula Oxygen Flow Rate 4 4 Fraction of Inspired Oxygen 36 Fraction of Inspired Oxygen 36 SaO2/FiO2 Ratio 261 Oxygen Delivery Method Nasal Cannula Oxygen Flow Rate 4 Narrative Exam Narrative: Alert male much less fatigued in no acute distress HEENT exam is unremarkable neck supple without adenopathy left base with rhonchi right base decreased breath sounds mild diffuse wheezes heart is regular rate and rhythm extremities without edema skin without rash Objective Labs 01/06/25 04:40 01/06/25 04:40 Labs: Laboratory Results - last 24 hr 01/05/25 01/06/25 12:58 04:40 WBC 6.6 RBC 4.02 L Hgb 12.5 L Hct 36.5 L MCV 90.7 MCH 31.1 MCHC 34.3 RDW 14.2 Plt Count 136 L Neut % (Auto) 74.9 Lymph % (Auto) 16.1 L [place] % (Auto) 7.5 Eos % (Auto) 1.1 L Baso % (Auto) 0.4 Neut # (Auto) 5000 Lymph # (Auto) 1100 Riley # (Auto) 500 Eos # (Auto) 100 Baso # (Auto) 0 Sodium 133 L Potassium 3.4 Chloride 97 L Carbon Dioxide 31 BUN 17 Creatinine 0.85 Estimated GFR > 60 BUN/Creatinine Ratio 20.0 Glucose 106 H Calcium 7.9 L Magnesium 1.7 Total Bilirubin 1.1 AST 20 ALT 17 Alkaline Phosphatase 47 Total Protein 7.1 Albumin 3.5 Globulin 3.6 Albumin/Globulin Ratio 1.0 Chlamy pneumoniae PCR Not detected Adenovirus (PCR) Not detected B. pertussis DNA (PCR) Not detected B.parapertussis DNA PCR Not detected Coronavirus OC43 (PCR) Not detected Coronavirus HKU1 (PCR) Not detected Coronavirus 229E (PCR) Not detected SARS-CoV-2 (PCR) Not detected Coronavirus NL63 (PCR) Not detected Human Metapneumovir PCR Not detected Influenza Type A (PCR) Not detected Influenza Type B (PCR) Not detected M. pneumoniae (PCR) Not detected Parainfluenza 1 (PCR) Not detected Parainfluenza 2 (PCR) Not detected Parainfluenza 3 (PCR) Not detected Parainfluenza 4 (PCR) Not detected RSV (PCR) Not detected Entero/Rhino (PCR) Detected H PFSH Medical History Chronic pain syndrome Status post lumbar spinal arthrodesis Hiatal hernia Shortness of breath Chronic pain Aspiration pneumonia due to gastric secretions Obstructive sleep apnea of adult Snoring Scoliosis deformity of spine Surgical History Status post thoracic spinal fusion H/O knee surgery History of cholecystectomy History of lumbar fusion Family History Father Congestive heart failure Liver disease Mother Heart disease Social History marital status: details: raghu Velez, lives in [place] household members: spouse lives independently: Yes caregiver/support person: No housing: house education level: college occupational status: employed current occupational exposures/hazards: Yes (asbestos, silica, other particulates) 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 Still present. Hypoxic. Patient probably with combination of aspiration pneumonia and rhino virus. On appropriate antibiotics clinically feeling better white count is normal culture still pending but at this point will continue treatment and hopefully be able to wean over the next 24-48 hours. Aspiration pneumonia. Seems to be doing better clinically feeling better no fever will continue on Unasyn. Awake hopefully cultures if not will continue treatment. 7-10 days depending on how he does. Re-evaluate a.m.. Dehydration. I think this is resolved he looks euvolemic today will discontinue fluids and see how he does. Rhino virus infection. Supportive care. Hypertension. Blood pressure certainly is not significantly elevated but will continue to follow. Stay off hydrochlorothiazide for now. But continue his other medications. Depression stable. Continue his usual SSRI GI prophylaxis stable DVT prophylaxis on Lovenox Code status full Disposition I suspect it will be 24-48 more hours at least probably more 48 depending on how he does with his oxygen. Will continue to follow Time-Based Coding :: [TOTAL MINUTES] spent with patient and on the chart (including review of chart, obtaining history, exam, reviewing outside data, placing orders, documenting exam and treatment plan, and counseling patient) on [DATE].
[2025-01-06] MEDS: MIRTAZAPINE 15 MG TABLET 45 MG PO (20:50)
--- NOTE | 2025-01-06 22:39 | PC.NURSE ---
spinner continuous patient accidently removed IV from left AC, RN notified float RN for [place].S. guided IV in lower limb possible per patient request.
[2025-01-07] MEDS: AMPICILLIN/SULBACTAM 3 GM 3 GM in SODIUM CHLORIDE 0.9% 100 ML IV ×4 (00:58→18:04)
[2025-01-07] MEDS: METHADONE 10 MG TABLET 20 MG PO ×6 (00:59→20:52)
[2025-01-07] MEDS: tiZANidine 4 MG TABLET PO ×2 (00:59→20:54)
[2025-01-07 04:48] LABS: Add Manual Diff / Slide Review NO; Hematocrit 36.6 % (41-53); Hemoglobin 12.8 g/dL (13.5-17.5); Lymphocytes Absolute Auto 1100 /uL (1100-4500); Mean Corpuscular HGB Conc 34.8 % (30-36); Mean Corpuscular Hemoglobin 31.4 PG (26-34); Mean Corpuscular Volume 90.1 fL (80-100); Platelet Count 134 X10^3/uL (150-400)
[2025-01-07 04:57] LABS: Alanine Aminotransferase 16 IU/L (<50); Albumin 3.7 g/dL (3.5-5.0); Albumin Globulin Ratio 1.0 (1.0-2.8); Alkaline Phosphatase 49 U/L (38-126); Blood Urea Nitrogen 12 mg/dL (9-20); Calcium 8.2 mg/dL (8.4-10.2); Carbon Dioxide 28 mmol/L (22-32); Chloride 99 mmol/L (98-107); Estimated Glomerular Filt Rate > 60 mL/min (>60); Globulin 3.7 g/dL (1.7-4.1); Glucose 92 mg/dL (70-99); HEMOLYSIS < 15 (0-50); Potassium 3.8 mmol/L (3.4-5.1); Sodium 134 mmol/L (137-145); Total Protein 7.4 g/dL (6.3-8.2)
[2025-01-07 08:58] VITALS: BP 132/72; PULSE 56; RESP 18; TEMP 36.4; O2SAT 91
[2025-01-07] MEDS: SENNOSIDES 8.6 MG TABLET 25.8 MG PO ×2 (08:59→20:53)
[2025-01-07] MEDS: GABAPENTIN 100 MG CAPSULE 200 MG PO ×3 (09:00→20:53)
[2025-01-07] MEDS: DOCUSATE 100 MG CAPSULE PO ×2 (09:00→20:54)
[2025-01-07] MEDS: PANTOPRAZOLE 40 MG VIAL IV (09:01)
[2025-01-07] MEDS: ENOXAPARIN 40 MG/0.4 ML SYRINGE SUBCUT (09:02)
--- NOTE | 2025-01-07 11:09 | P.PN_ITS ---
Subjective Subjective Date Patient Seen: 01/07/25 Time Patient Seen: 10:00 Interval history: CC: Aspiration pneumonia Feeling ok today able to do two laps around unit walking wtih 1.5L O2 - he was satting 87% on getting back. Appetite is so-so he is using incentive spirometer all the time able to manage 2500mL. Exam Vital Signs (past 8 hours): - 01/07/25 07:00 01/07/25 07:00 01/07/25 08:58 Temperature 97.6 F Pulse Rate 56 L Respiratory Rate 18 Blood Pressure 132/72 Pulse Oximetry 91 Oxygen Delivery Method Nasal Cannula Nasal Cannula Oxygen Flow Rate 1.5 1 Fraction of Inspired Oxygen 36 SaO2/FiO2 Ratio 261 Oxygen Delivery Method Nasal Cannula Oxygen Flow Rate 1 Narrative Exam Narrative: standing by chair with O2 tank Const Other: well developed well nourished Resp Other: moving air well on 1.5L O2, bibasilar crackles R>L Cardio Other: regular rate s1/s2 GI Other: soft nontender active bowel sounds Neuro Other: alert awake oriented moving al llimbs Objective Labs 01/07/25 04:25 01/07/25 04:25 Labs: Laboratory Results - last 24 hr 01/07/25 04:25 WBC 5.9 RBC 4.07 L Hgb 12.8 L Hct 36.6 L MCV 90.1 MCH 31.4 MCHC 34.8 RDW 14.1 Plt Count 134 L Neut % (Auto) 67.2 Lymph % (Auto) 18.4 L [place] % (Auto) 11.0 Eos % (Auto) 2.5 Baso % (Auto) 0.9 Neut # (Auto) 4000 Lymph # (Auto) 1100 [place] # (Auto) 600 Eos # (Auto) 100 Baso # (Auto) 100 Sodium 134 L Potassium 3.8 Chloride 99 Carbon Dioxide 28 BUN 12 Creatinine 0.84 Estimated GFR > 60 BUN/Creatinine Ratio 14.3 Glucose 92 Calcium 8.2 L Total Bilirubin 0.8 AST 23 ALT 16 Alkaline Phosphatase 49 Total Protein 7.4 Albumin 3.7 Globulin 3.7 Albumin/Globulin Ratio 1.0 [facility] Medical History Chronic pain syndrome Status post lumbar spinal arthrodesis Hiatal hernia Shortness of breath Chronic pain Aspiration pneumonia due to gastric secretions Obstructive sleep apnea of adult Snoring Scoliosis deformity of spine Surgical History Status post thoracic spinal fusion H/O knee surgery History of cholecystectomy History of lumbar fusion Family History Father Congestive heart failure Liver disease Mother Heart disease Social History marital status: details: raghu Velez, lives in [place] household members: spouse lives independently: Yes caregiver/support person: No housing: house education level: college occupational status: employed current occupational exposures/hazards: Yes (asbestos, silica, other particulates) 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 On appropriate antibiotics clinically feeling better white count is normal culture nothing grew #Aspiration pneumonia, recurrent improving clinically still needing oxygen doing well on unasyn continue for now- sputum culture grew nothing #Hx of Jb fundoplication x1 he has been exploring getting this repeated, states aspiration issue is mostly the consequence of regurgitation not dysphagia #Dehydration resolved #Rhinovirus infection continue supportive care. #Hypertension Stable consider restarting HCTZ on dc #Depression stable continue SSRI Dispo: one more day likely would like to get of oxygen before going home DVT prophylaxis: Lovenox Code status: full PCP: Honorio Time-Based Coding :: [TOTAL MINUTES] spent with patient and on the chart (including review of chart, obtaining history, exam, reviewing outside data, placing orders, documenting exam and treatment plan, and counseling patient) on [DATE].
--- NOTE | 2025-01-07 12:51 | CM.DPC ---
DCP Cont. Reviewed EMR and team rounds for pt's status updates. Recived angry call from his early this am insisting that as a hospital, you need to expedite him having surgery at the [facility], I'm tired of people dropping the ball. Yelling again on the phone on speaker later in pt's room. She is frustrated that he has to go for another visit to [facility] to continue completing the testing in order to send the referral to [facility], and was under the false impression that we could get this done faster. He is here for pneumonia, and is getting IV antibiotics, she feels that we aren't doing anything. Called Dr. Olmedo's office, he was out, so Dr. Youngblood came and and had the same conversation, while the office staff called her and also got yelled at for him not yet having a surgery scheduled at [facility]. They did sort that out among themselves. Please do a NEO for [facility] and send to medical records so they can see his hospital notes. BRIE: 01/08.
[2025-01-07] MEDS: MAGNESIUM HYDROXIDE 30 ML UDC PO (14:26)
--- NOTE | 2025-01-07 16:35 | PC.NURSE ---
Pt OOB most of shift, walking in hallways. Pt utilizing O2 on and off throughout day, 1L NC. Potential DC home tomorrow.
[2025-01-07 19:00] VITALS: O2SAT 96
[2025-01-07 20:15] VITALS: BP 153/67; PULSE 52; RESP 18; TEMP 36.3; O2SAT 94
[2025-01-07] MEDS: MIRTAZAPINE 15 MG TABLET 45 MG PO (20:54)
[2025-01-07 22:44] VITALS: O2SAT 95
[2025-01-08] MEDS: AMPICILLIN/SULBACTAM 3 GM 3 GM in SODIUM CHLORIDE 0.9% 100 ML IV ×2 (00:39→05:40)
[2025-01-08] MEDS: METHADONE 10 MG TABLET 20 MG PO ×3 (00:40→09:48)
[2025-01-08 07:00] VITALS: BP 154/70; PULSE 62; RESP 18; TEMP 35.6; O2SAT 94; O2SAT 95
--- NOTE | 2025-01-08 08:33 | P.DS_ITS ---
History of Present Illness History of Present Illness Date Patient Seen: 01/08/25 Time Patient Seen: 08:33 Date of Onset of Symptoms: 12/23/24 Chief complaint: SOB, oxygen 85, sick for several weeks Narrative: Patient is a 64-year-old male well known to me with history of chronic pain syndrome and reflux with history of aspiration pneumonia who presents with increasing shortness of breath and dizziness. Patient has had recurrent episodes of pneumonia over the last several years. He has been recently evaluated by GI and is in the process of probably getting a Jb fundoplication but has not got that set up yet. Last week he began having shortness of breath and cough after an aspiration event started his Augmentin finished the Augmentin on Saturday but still felt like he was not doing well and is increasingly got worse since discontinuing antibiotics. Maybe even started to get worse at the end of antibiotics. Increasing cough increasing shortness of breath worse this morning. Scared today. Came to the ER. There has been no other significant change. He has had no diarrhea no abdominal pain no nausea or vomiting. Does feel like his reflexes active right now. No headaches visual symptoms or other change. Discharge Providers Provider Date of admission: 01/05/25 12:28 Discharge Date: 01/08/25 Primary care physician: Jameson Olmedo MD Consults: 01/05/25 16:09 Consult to Pharmacy Routine Comment: high fall risk 01/06/25 11:50 Consult to Pharmacy Routine Comment: high fall risk Discharge provider: Jameson Olmedo MD Summary Hospital Course Discharge Diagnosis: Acute respiratory failure Aspiration pneumonia Dehydration Rhino virus Hypertension Depression Chronic back pain Hospital Course: Acute respiratory failure. Patient presented with O2 sats in the 80s. Mild respiratory distress. Patient responded well to O2 therapy. Caroline to be secondary to combination of aspiration pneumonia recurrently and rhino virus at the same time. Patient responded well to IV antibiotics and supportive care. Was off O2 and ambulating on day of discharge. Doing well. Will be followed as outpatient. Recurrent aspiration pneumonia. Patient was placed on IV Unasyn and worked well. Sputum culture is growing a Gram-negative bacilli but not identified. Will need to follow that up as outpatient. Patient was feeling better in 24 hours but not improving completely. Caroline like he was back to his normal self on day of discharge. Patient's biggest issue is this is a recurrent issue. He is looking getting a Ja fundoplication set up here in the near future. Currently being worked up by GI. We will continue his PPI. Reflux precautions. Seven days of Augmentin Dehydration. Patient was hydrated aggressively over the 1st 24 hours and then discontinued he was euvolemic he has been taking fluids well. Doing well. No further follow-up Rhino virus. Patient was admitted supported with fluids and O2. Supportive care. Feeling markedly better today. Will be followed as a as needed basis. Hypertension. Blood pressure was stable throughout course. Will continue to follow restart usual meds. Depression. Stable. Usual SSRI. Chronic back pain. Patient is followed by pain clinic. Will be followed as outpatient. Usual meds Exam Vital Signs (past 8 hours): Fraction of Inspired Oxygen 36 SaO2/FiO2 Ratio 261 Oxygen Delivery Method Nasal Cannula Oxygen Flow Rate 1 Narrative Exam Narrative: Alert male in no acute distress much less fatigued in appearance in no acute respiratory distress HEENT exam is unremarkable neck supple without adenopathy lungs are clear today heart is regular rate and rhythm abdomen is soft positive bowel sounds nontender extremities without edema Objective Labs 01/07/25 04:25 01/07/25 04:25 [facility] Medical History Chronic pain syndrome Status post lumbar spinal arthrodesis Hiatal hernia Shortness of breath Chronic pain Aspiration pneumonia due to gastric secretions Obstructive sleep apnea of adult Snoring Scoliosis deformity of spine Surgical History Status post thoracic spinal fusion H/O knee surgery History of cholecystectomy History of lumbar fusion Family History Father Congestive heart failure Liver disease Mother Heart disease Social History marital status: details: raghu Velez, lives in [place] household members: spouse lives independently: Yes caregiver/support person: No housing: house education level: college occupational status: employed current occupational exposures/hazards: Yes (asbestos, silica, other particulates) 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 Smoking Status: Former smoker alcohol intake: former substance use type: does not use Discharge Assessment & Plan Assessment and Plan Assessment: Improved Plan of Treatment: Discharge home Discharge Plan Discharge Plan Patient Disposition: Home Discharge orders & Medications Prescriptions: New amoxicillin-pot clavulanate [Augmentin XR] 1,000-62.5 mg tablet extended release 12 hr 1 tab PO BID 7 Days Qty: 14 0RF Continued fluticasone propionate 16 GM spray,suspension 1 spray Intranasal BEDTIME Qty: 0 duloxetine 40 mg Capsule,Delayed Release(Dr/Ec) 20 mg PO BID gabapentin 100 mg Capsule 200 mg PO TID mirtazapine 30 mg tablet 45 mg PO QPM lisinopril 20 mg tablet 20 mg PO BID tizanidine 4 mg tablet 4 mg PO BID PRN (Reason: muscle spasms) Patient Comments: take 1 tablet by mouth at bedtime if needed for muscle spasm oxycodone 20 mg tablet 20 mg PO Q4HR Patient Comments: take 1 tablet by mouth every 4 hours NEEDED FOR PAIN maximum daily dose of 6 methadone 10 mg tablet 20 mg PO Q4H Patient Comments: take 1 tablet by mouth q8hr day omeprazole 20 mg capsule,delayed release(DR/EC) 20 mg PO BID hydrochlorothiazide 25 mg tablet 25 mg PO BID testosterone cypionate 200 mg/mL oil 60 mg IM Q7D (DME) Respironics BIPAP AutoSV Advanced Qty: 1 Dose Instruction: As directed Patient Comments: Pressure: 6-15 cmH2O DME: Rx Instructions: As directed Follow up/Referrals: Jameson Olmedo MD [Primary Care Provider, [facility]] - 01/13/25 Referral Note: Please call for appointment Discharge Health Status Multidrug resistant organism: No MDRO Diet/Activity/Treatments Diet: Diet as Tolerated Skin/Wound/Dressing Care Report to your healthcare provider any signs of infection, such as:: chills, fever and night sweats Visit Report/Discharge Packet Stand Alone Forms: Patient Portal/API, Stroke Signs & Symptoms Discharge Data Primary Care Provider: Jameson Olmedo
[2025-01-08 09:05] VITALS: O2SAT 91
[2025-01-08 09:48] VITALS: BP 154/70; PULSE 62
[2025-01-08] MEDS: GABAPENTIN 100 MG CAPSULE 200 MG PO (09:48)
[2025-01-08] MEDS: DOCUSATE 100 MG CAPSULE PO (09:51)
[2025-01-08] MEDS: SENNOSIDES 8.6 MG TABLET 25.8 MG PO (09:51)
--- NOTE | 2025-01-08 10:27 | CM.DPNOTE ---
DCP Continued: Reviewed EMR and team rounds for pt?s medical status. Per hospitalist, pt cleared to discharge home today. DCP entered room with pre-filled Release of Information for [facility] for continuity of care; Pt signed authorization for release of information. DCP scanned and sent to Medical Records. No other discharge needs identified at this time. Plan: Discharge orders in, anticipating pt to discharge home with spouse to transport. CM Team will continue to follow for coordination of discharge plans. PEGGY Melchor
--- NOTE | 2025-01-08 11:52 | PC.NURSE ---
Addendum entered by Nora Villalpando RN 01/08/25 12:16: Pt escorted by staff via W/C to waiting vehicle D/C in stable status. Original Note: Pt independent in room. Slight SOB w/ excretion, rebounds quickly. SpO2 94-96% RA Pt received orders for D/C SL D/C intact. Home instructions given w/ understanding.
== END 2025-01-08 12:17 | disposition home or self-care (01) | DRG 177 ==
LOC: ED 12:22 → AC 12:29
PROVIDERS: Admitting Provider Family Medicine; Emergency Provider Emergency Medicine; PCP Family Medicine; Referring Provider Emergency Medicine; Visit Provider Family Medicine
DX: J69.0 Pneumonitis due to inhalation of food and vomit (principal); J96.01 Acute respiratory failure with hypoxia; E86.0 Dehydration; I10 Essential (primary) hypertension; M41.9 Scoliosis, unspecified; G89.4 Chronic pain syndrome; F32.A Depression, unspecified; B34.8 Other viral infections of unspecified site; G47.33 Obstructive sleep apnea (adult) (pediatric); K21.9 Gastro-esophageal reflux disease without esophagitis; Z87.891 Personal history of nicotine dependence; Z87.01 Personal history of pneumonia (recurrent); Z98.890 Other specified postprocedural states
CPT/HCPCS: 36415; 71045; 80053; 83605; 83735; 83880; 84145; 84484; 85025; 85610; 87040; 87070; 87077; 87186; 87205; 87633; 93005; 94640; 94760; 96365; 96375; 99285; J0295; J1650; J2272; J2405; J2470; J7050; J7120; J7613

== ENCOUNTER 2025-03-06 13:53 | Emergency (ER) | payer MEDICARE, OTHER, SELFPAY ==
[2025-01-05 18:04] VITALS: BMI 26.4
[2025-03-06 14:00] VITALS: BP 138/68; PULSE 61; RESP 18; TEMP 36.5; O2SAT 96; BMI 25.7
--- NOTE | 2025-03-06 14:09 | DI.RAD.S_ITS ---
PROCEDURE: XR CHEST 1V INDICATIONS: Shortness of breath TECHNIQUE: One view of the chest was acquired. COMPARISON: [facility], CR, XR CHEST 1V, 01/05/2025, 11:44. [facility], CR, XR CHEST 2V, 12/25/2024, 10:58. FINDINGS: Surgical changes and devices: None. Lungs and pleura: Moderate lung volumes. Mild interstitial opacities. No pleural effusion. No pneumothorax. Mediastinum: Mediastinal contours appear normal. Heart size is normal. Bones and chest wall: Changes of long segment thoracic to lumbar posterior spinal instrumented fusion.. Overlying soft tissues appear unremarkable. IMPRESSION: Moderate lung volumes with corresponding increased prominence of the interstitial markings which may be secondary to low lung volumes, trace interstitial pulmonary edema, or atypical/viral infiltrate. Dictated by: Hang Bean M.D. on 03/06/2025 at 14:55 Approved by: Hang Bean M.D. on 03/06/2025 at 14:56
[2025-03-06 14:32] LABS: Add Manual Diff / Slide Review NO; Hematocrit 43.7 % (41-53); Hemoglobin 15.1 g/dL (13.5-17.5); Lymphocytes Absolute Auto 900 /uL (1100-4500); Mean Corpuscular HGB Conc 34.5 % (30-36); Mean Corpuscular Hemoglobin 30.5 PG (26-34); Mean Corpuscular Volume 88.2 fL (80-100); Platelet Count 163 X10^3/uL (150-400)
[2025-03-06 14:35] LABS: INR 1.0 (0.9-1.3); Prothrombin Time 11.1 SECONDS (9.4-12.5)
[2025-03-06 14:38] LABS: Lactate (Lactic Acid) 1.6 mmol/L (0.7-2.1)
[2025-03-06 14:39] LABS: Alanine Aminotransferase 22 IU/L (<50); Albumin 4.4 g/dL (3.5-5.0); Albumin Globulin Ratio 1.0 (1.0-2.8); Alkaline Phosphatase 47 U/L (38-126); Blood Urea Nitrogen 17 mg/dL (9-20); Calcium 8.8 mg/dL (8.4-10.2); Carbon Dioxide 30 mmol/L (22-32); Chloride 99 mmol/L (98-107); Estimated Glomerular Filt Rate > 60 mL/min (>60); Globulin 4.3 g/dL (1.7-4.1); Glucose 128 mg/dL (70-99); HEMOLYSIS < 15 (0-50); Potassium 2.9 mmol/L (3.4-5.1); Sodium 137 mmol/L (137-145); Total Protein 8.7 g/dL (6.3-8.2)
[2025-03-06 14:51] LABS: NT-proBNP (BNP-Adult 18+) 24 pg/mL (<125); Troponin I < 0.012 ng/mL (0.01-0.034)
--- NOTE | 2025-03-06 17:09 | ED.SOB ---
HPI - SOB/Dyspnea General Chief Complaint: Shortness of Breath/Dyspnea Stated Complaint: coughing up blood today, SOB Time Seen by Provider: 03/06/25 17:00 Source: patient Mode of arrival: Ambulatory History of Present Illness HPI Narrative: 64-year-old gentleman recent procedure done for which they went up the nose and down the throat 8 days ago presents with shortness breath cough with blood-tinged sputum started the past few days. Patient denies chest pain, shortness of breath, dyspnea on exertion, leg pain or leg swelling. Other than what is stated 14 point review of system is negative. Related Data Home Medications ?Medication ?Instructions ?Recorded ?Confirmed fluticasone propionate 50 1 spray intranasal BEDTIME ##0 04/22/16 02/10/25 mcg/actuation nasal spray,suspension Respironics BIPAP AutoSV Advanced #1 ea 05/13/18 02/10/25 hydrochlorothiazide 25 mg tablet 25 mg PO BID 08/16/21 02/10/25 lisinopril 20 mg tablet 20 mg PO BID 08/16/21 02/10/25 methadone 10 mg tablet 20 mg PO Q4H 08/16/21 02/10/25 omeprazole 20 mg capsule,delayed 20 mg PO BID 08/16/21 02/10/25 release oxycodone 20 mg tablet 20 mg PO Q4HR 08/16/21 02/10/25 testosterone cypionate 200 mg/mL 60 mg IM Q7D 08/16/21 02/10/25 intramuscular oil tizanidine 4 mg tablet 4 mg PO BID PRN muscle spasms 08/16/21 02/10/25 duloxetine 40 mg capsule,delayed 20 mg PO BID 05/17/22 02/10/25 release gabapentin 100 mg capsule 200 mg PO TID 05/17/22 02/10/25 mirtazapine 30 mg tablet 45 mg PO QPM 01/05/25 02/10/25 Previous Rx's ?Medication ?Instructions ?Recorded amoxicillin 875 mg-potassium 1 tab PO Q12H #14 tabs 03/06/25 clavulanate 125 mg tablet azithromycin 250 mg tablet 250 mg PO DAILY 4 days #4 tabs 03/06/25 Allergies Allergy/AdvReac Type Severity Reaction Status Date / Time tamsulosin (From Flomax) AdvReac Intermediate Irritable Verified 03/06/25 14:00 bupropion (From WELLBUTRIN) AdvReac Mild rash/nausea Verified 03/06/25 14:00 [id number] Reductase AdvReac Unknown CASSIUSLEY Verified 03/06/25 14:00 Inhibitor ([id number] HORSES IN REDUCTASE INHIBITOR) LEGS Review of Systems Review of Systems ROS Unobtainable: All systems reviewed & are unremarkable except as noted in HPI and below Patient History Medical History Chronic pain syndrome Status post lumbar spinal arthrodesis Hiatal hernia Shortness of breath Chronic pain Aspiration pneumonia due to gastric secretions Obstructive sleep apnea of adult Snoring Scoliosis deformity of spine Surgical History Status post thoracic spinal fusion H/O knee surgery History of cholecystectomy History of lumbar fusion Family History Father Congestive heart failure Liver disease Mother Heart disease Social History marital status: details: raghu Velez, lives in [place] household members: spouse lives independently: Yes caregiver/support person: No housing: house education level: college occupational status: employed current occupational exposures/hazards: Yes (asbestos, silica, other particulates) 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 Well-developed patient, in mild distress. HEAD: Atraumatic. Normocephalic. EYES: Pupils equal round and reactive. Extraocular motions intact. No scleral icterus. No injection or drainage. ENT: Nose without bleeding, purulent drainage. Throat without erythema, tonsillar hypertrophy or exudate. Airway patent. NECK: Trachea midline. Non tender CARDIOVASCULAR: Regular rate and rhythm without murmurs, gallops, or rubs. RESPIRATORY: Coarse rhonchi right side GASTROINTESTINAL: Abdomen soft, non-tender, nondistended. EXTREMITIES: No edema or joint tenderness. BACK: Nontender without deformity or crepitance. No flank tenderness. NEURO: AOx3. SKIN: No rash or erythema of visible areas Initial Vital Signs Initial Vital Signs: Vital Signs Temperature 97.7 F 03/06/25 14:00 Pulse Rate 61 03/06/25 14:00 Respiratory Rate 18 03/06/25 14:00 Blood Pressure 138/68 03/06/25 14:00 Pulse Oximetry 96 03/06/25 14:00 Oxygen Delivery Method Room Air 03/06/25 14:00 Course Orders Ordered: ED Orders 03/06/25 14:09 XR chest 1V Stat EKG-12 Lead Stat Measure peak expiratory flow STAT RT Consult Eval and Treat STAT 03/06/25 14:17 Complete Blood Count AUTO DIFF Stat Comprehensive Metabolic Panel Stat Lactate (Lactic Acid) Stat MAG [Magnesium] Stat NT-proBNP (BNP-Adult 18+) Stat Prothrombin Time INR Stat Troponin I Stat 03/06/25 17:15 Respiratory Panel (Film Array) Stat Discontinued Medications Amoxicillin/Clavulanate Potassium (Amoxicillin/Clav 875/125 Mg) 1 tab PO NOW ONE Stop: 03/06/25 17:13 Last Admin: 03/06/25 17:30 Dose: 1 tab Documented By: CLARK Azithromycin (Azithromycin 250 Mg Tablet) 500 mg PO NOW ONE Stop: 03/06/25 17:13 Last Admin: 03/06/25 17:30 Dose: 500 mg Documented By: CLARK Potassium Chloride (Potassium Chloride 20 Meq/15 Ml Udc) 40 meq PO NOW ONE Stop: 03/06/25 17:13 Last Admin: 03/06/25 17:30 Dose: 40 meq Documented By: CLARK Vital Signs Vital signs: Vital Signs - 8 hr 03/06/25 14:00 03/06/25 17:13 03/06/25 18:05 Temperature 97.7 F Pulse Rate 61 49 L 49 L Respiratory Rate 18 12 18 Blood Pressure 138/68 135/87 Pulse Oximetry 96 93 93 Oxygen Delivery Method Room Air Room Air MDM - SOB/Dyspnea Lab Data 03/06/25 14:17 03/06/25 14:17 Labs: Lab Results 03/06/25 03/06/25 Range/Units 14:17 17:15 WBC 4.0 L (4.5-11.0) X10^3/uL RBC 4.96 (4.5-5.9) X10^6/uL Hgb 15.1 (13.5-17.5) g/dL Hct 43.7 (41-53) % MCV 88.2 (80-100) fL MCH 30.5 (26-34) PG MCHC 34.5 (30-36) % RDW 14.9 H (11.6-14.8) % Plt Count 163 (150-400) X10^3/uL Neut % (Auto) 61.3 (50-75) % Lymph % (Auto) 22.5 L (25-40) % [place] % (Auto) 13.2 (3-14) % Eos % (Auto) 2.2 (2-4) % Baso % (Auto) 0.8 (0-2) % Neut # (Auto) 2400 (5444-9720) /uL Lymph # (Auto) 900 L (9976-7767) /uL [place] # (Auto) 500 (0-900) /uL Eos # (Auto) 100 (0-450) /uL Baso # (Auto) 0 (0-100) /uL PT 11.1 (9.4-12.5) SECONDS INR 1.0 (0.9-1.3) Sodium 137 (137-145) mmol/L Potassium 2.9 L (3.4-5.1) mmol/L Chloride 99 (98-107) mmol/L Carbon Dioxide 30 (22-32) mmol/L BUN 17 (9-20) mg/dL Creatinine 0.91 (0.66-1.25) mg/dL Estimated GFR > 60 (>60) mL/min BUN/Creatinine Ratio 18.7 (6-22) Glucose 128 H (70-99) mg/dL Lactate 1.6 (0.7-2.1) mmol/L Calcium 8.8 (8.4-10.2) mg/dL Magnesium 1.6 (1.6-2.3) mg/dL Total Bilirubin 0.6 (0.2-1.3) mg/dL AST 27 (17-59) IU/L ALT 22 (<50) IU/L Alkaline Phosphatase 47 (38-126) U/L Troponin I < 0.012 (0.01-0.034) ng/mL NT-Pro-B Natriuret Pep 24 (<125) pg/mL Total Protein 8.7 H (6.3-8.2) g/dL Albumin 4.4 (3.5-5.0) g/dL Globulin 4.3 H (1.7-4.1) g/dL Albumin/Globulin Ratio 1.0 (1.0-2.8) Chlamy pneumoniae PCR Not detected (Not Detect) Adenovirus (PCR) Not detected (Not Detect) B. pertussis DNA (PCR) Not detected (Not Detect) B.parapertussis DNA PCR Not detected (Not Detecte) Coronavirus OC43 (PCR) Not detected (Not Detect) Coronavirus HKU1 (PCR) Not detected (Not Detect) Coronavirus 229E (PCR) Not detected (Not Detect) SARS-CoV-2 (PCR) Not detected (Not Detecte) Coronavirus NL63 (PCR) Not detected (Not Detect) Human Metapneumovir PCR Not detected (Not Detect) Influenza Type A (PCR) Not detected (Not Detect) Influenza Type B (PCR) Not detected (Not Detect) M. pneumoniae (PCR) Not detected (Not Detect) Parainfluenza 1 (PCR) Not detected (Not Detect) Parainfluenza 2 (PCR) Not detected (Not Detect) Parainfluenza 3 (PCR) Not detected (Not Detect) Parainfluenza 4 (PCR) Not detected (Not Detect) RSV (PCR) Not detected (Not Detect) Entero/Rhino (PCR) Not detected (Not Detect) MDM Narrative Medical decision making narrative: All lab work vital signs nurse triage note medication list previous ER visits in all imaging studies reviewed. COVID flu RSV is negative Patient given Augmentin and Zithromax potassium solution. Chest x-ray showed moderate lung volumes with corresponding increased prominence of the interstitial markings which may be secondary to lung volumes, trace interstitial pulmonary edema or atypical viral infiltrate. Differential diagnosis COVID flu RSV pneumonia Discharge Plan Departure Patient Disposition: Home Clinical Impression: Pneumonia, Hypokalemia Instructions: DI for Pneumonia -- Adult Activity Restrictions/Additional Instructions: Return with new or worsening symptoms. Take medicines as directed. Follow up PCP 1-2 weeks if no improvement in symptoms. Prescriptions: New amoxicillin-pot clavulanate 875-125 mg tablet 1 tab PO Q12H Qty: 14 0RF azithromycin 250 mg tablet 250 mg PO DAILY 4 Days Qty: 4 0RF No Action fluticasone propionate 16 GM spray,suspension 1 spray Intranasal BEDTIME Qty: 0 duloxetine 40 mg Capsule,Delayed Release(Dr/Ec) 20 mg PO BID gabapentin 100 mg Capsule 200 mg PO TID mirtazapine 30 mg tablet 45 mg PO QPM lisinopril 20 mg tablet 20 mg PO BID tizanidine 4 mg tablet 4 mg PO BID PRN (Reason: muscle spasms) Patient Comments: take 1 tablet by mouth at bedtime if needed for muscle spasm oxycodone 20 mg tablet 20 mg PO Q4HR Patient Comments: take 1 tablet by mouth every 4 hours NEEDED FOR PAIN maximum daily dose of 6 methadone 10 mg tablet 20 mg PO Q4H Patient Comments: take 1 tablet by mouth q8hr day omeprazole 20 mg capsule,delayed release(DR/EC) 20 mg PO BID hydrochlorothiazide 25 mg tablet 25 mg PO BID testosterone cypionate 200 mg/mL oil 60 mg IM Q7D (DME) Respironics BIPAP AutoSV Advanced Qty: 1 Dose Instruction: As directed Patient Comments: Pressure: 6-15 cmH2O DME: Rx Instructions: As directed Referrals: Jameson Olmedo MD [Primary Care Provider, Family Practice] Stand Alone Forms: Patient Portal/API
[2025-03-06 17:13] VITALS: PULSE 49; RESP 12; O2SAT 93
[2025-03-06] MEDS: AZITHROMYCIN 250 MG TABLET 500 MG PO (17:30)
[2025-03-06] MEDS: AMOXICILLIN/CLAV 875/125 MG 1 TAB PO (17:30)
[2025-03-06] MEDS: POTASSIUM CHLORIDE 20 MEQ/15 ML UDC 40 MEQ PO (17:30)
[2025-03-06 17:38] LABS: Magnesium 1.6 mg/dL (1.6-2.3)
[2025-03-06 18:05] VITALS: BP 135/87; PULSE 49; RESP 18; O2SAT 93
[2025-03-06 18:21] LABS: Coronavirus NL 63 Not Detected (Not Detect); SARS- CoV-2 Not Detected (Not Detecte)
== END 2025-03-06 18:05 | disposition home or self-care (01) ==
PROVIDERS: Emergency Provider Family Medicine; PCP Family Medicine
DX: J18.9 Pneumonia, unspecified organism (principal); E87.6 Hypokalemia
CPT/HCPCS: 36415; 71045; 80053; 83605; 83735; 83880; 84484; 85025; 85610; 87633; 99284